=== PATIENT | male | born 1965 | race Caucasian/White ===

== ENCOUNTER 2023-04-18 13:46 | Inpatient (IN) | payer OTHER ==
--- NOTE | 2023-04-18 14:07 | ED ---
Abdominal Pain HPI - General Chief Complaint: Abdominal Pain Stated Complaint: Abd Pain Time Seen by Provider: 04/18/23 14:05 Source: patient, EMS Mode of arrival: EMS Limitations: no limitations - History of Present Illness Initial Comments: Patient is a 57-year-old male presenting to the emergency room via EMS with complaints of abdominal pain that has been ongoing for 2-3 weeks with increased intensity recently. He states that he has chronic diarrhea and has had intermittent bouts of nausea with vomiting with his last episode of vomiting 2 days ago. He does report hemorrhoids that cause bright red blood at times but denies any gross blood in his stool or melenic stool. He denies any blood in his emesis. As stated above he has not had any emesis from 2 days. He also reports changes in position suddenly causes him to become dizzy and he has had a few falls over the last few weeks causing some abrasions to his upper arms. He denies any falls in the last several days. He does admit to previous daily drinking but reports that he no longer drinks daily. He states his last drink was yesterday. He denies any changes in positions or while he is lying in his current position. He reports his only significant past medical history is for GI bleed. - Related Data Allergies Allergy/AdvReac Type Severity Reaction Status Date / Time No Known Allergies Allergy Verified 04/18/23 15:15 Review of Systems ROS Statement: Those systems with pertinent positive or pertinent negative responses have been documented in the HPI. ROS Other: All systems not noted in ROS Statement are negative. Past Medical History Past Medical History: GI Bleed History of Any Multi-Drug Resistant Organisms: None Reported Past Surgical History: No Surgical Hx Reported Past Psychological History: No Psychological Hx Reported Smoking Status: Current every day smoker Past Alcohol Use History: Daily Past Drug Use History: None Reported General Exam Limitations: no limitations General appearance: alert, in no apparent distress Head exam: Present: atraumatic, normocephalic, normal inspection Eye exam: Present: normal appearance, PERRL, EOMI. Absent: scleral icterus, conjunctival injection, nystagmus, periorbital swelling ENT exam: Present: normal exam, mucous membranes moist Neck exam: Present: normal inspection, full ROM. Absent: tenderness Respiratory exam: Present: normal lung sounds bilaterally. Absent: respiratory distress, wheezes, rales, rhonchi, stridor Cardiovascular Exam: Present: regular rate, normal rhythm, normal heart sounds. Absent: systolic murmur, diastolic murmur, rubs, gallop, clicks GI/Abdominal exam: Present: soft, distended, tenderness (Generalized), normal bowel sounds. Absent: guarding, rebound, rigid Rectal exam: Present: deferred Extremities exam: Present: normal inspection. Absent: tenderness, pedal edema, joint swelling Back exam: Present: normal inspection, full ROM Neurological exam: Present: alert, oriented X3, CN II-XII intact Psychiatric exam: Present: flat affect Skin exam: Present: warm, dry, abrasion (Healing bilateral upper extremities.), other (Scattered ecchymosis bilateral upper extremities). Absent: rash Course Vital Signs 04/18/23 04/18/23 13:48 15:53 Temperature 98.1 F Pulse Rate 86 78 Respiratory 18 18 Rate Blood Pressure 95/65 89/58 O2 Sat by Pulse 98 96 Oximetry Medical Decision Making - Medical Decision Making Was pt. sent in by a medical professional or institution (Dr. PA, INVESTMENT EXECUTIVE, urgent care, hospital, or half-way...) When possible be specific @ -No Did you speak to anyone other than the patient for history (EMS, parent, family, police, friend...)? What history was obtained from this source @ -No Did you review nursing and triage notes (agree or disagree)? Why? @ -I reviewed and agree with nursing and triage notes Were old charts reviewed (outside hosp., previous admission, EMS record, old EKG, old radiological studies, urgent care reports/EKG's, half-way records)? Report findings @ -No old charts were reviewed Differential Diagnosis (chest pain, altered mental status, abdominal pain women, abdominal pain men, vaginal bleeding, weakness, fever, dyspnea, syncope, headache, dizziness, GI bleed, back pain, seizure, CVA, palpatations, mental health, musculoskeletal)? @ -Differential Abdominal Pain Men: Appendicitis, cholecystitis, diverticulosis, ischemic bowel, pancreatitis, hepatitis, UTI, gastroenteritis, AAA, incarcerated hernia, bowel obstruction, constipation, inflammatory bowel, hepatitis, peptic ulcer disease, splenic infarction, perforated viscus, testicular torsion, this is not meant to be an all-inclusive list Differential Dizziness: Benign paroxysmal positional Vertigo, Menieres disease, otitis media, acoustic neuroma, vertebrobasilar insufficiency, cerebellar stroke, encephalitis, hypovolemic, arrhythmia, coronary artery syndrome, anemia, this is not meant to be an all-inclusive list EKG interpreted by me (3pts min.). @ -Sinus rhythm, ventricular rate 82 bpm, CO interval 173 ms, QRS duration 97 ms, QT/QTC 388/427 ms, PRT axes 55, 32, 36 X-rays interpreted by me (1pt min.). @ -None done CT interpreted by me (1pt min.). @ -None done U/S (1pt. min.). @ -Ultrasound of the abdomen complete not interpreted by me. Report per radiologist mild to moderate ascites, gallbladder wall thickening without evidence of cholecystitis, borderline hepatomegaly. What testing was considered but not performed or refused? (CT, X-rays, U/S, labs)? Why? @ -None What meds were considered but not given or refused? Why? @ -None Did you discuss the management of the patient with other professionals (pr ofessionals i.e. , PA, INVESTMENT EXECUTIVE, lab, RT, psych nurse, criminal justice social worker, machine tester, teacher, airframe technical officer, shelter case manager)? Give summary @ -No Was smoking cessation discussed for >3mins.? @ -No Was critical care preformed (if so, how long)? @ -No Were there social determinants of health that impacted care today? How? (Homelessness, low income, unemployed, alcoholism, drug addiction, transport ation, low edu. Level, literacy, decrease access to med. care, group home, rehab)? @ -No Was there de-escalation of care discussed even if they declined (Discuss DNR or withdrawal of care, Hospice)? DNR status @ -No What co-morbidities impacted this encounter? (DM, HTN, Smoking, COPD, CAD, Cancer, CVA, ARF, Chemo, Hep., AIDS, mental health diagnosis, sleep apnea, morbid obesity)? @ -EtOH history Was patient admitted / discharged? Hospital course, mention meds given and route, prescriptions, significant lab abnormalities, going to OR and other pertinent info. @ -57-year-old male presenting to the emergency room with complaints of abdominal pain ongoing for 2-3 weeks with chronic diarrhea and intermittent episodes of nausea vomiting. No nausea vomiting 48 hours. History of EtOH noted. Also reports dizziness with sudden position changes and several falls over the last several weeks none with the last 48 hours. Healing abrasions to upper extremities from previous falls noted. Will start workup for abdominal pain with ultrasound of the abdomen, CBC, CMP, amylase, lipase and coags. Stool for occult blood due to referred due to excoriated perineal and rectal area with inflamed external hemorrhoids.Will additionally order ammonia level, magnesium and serum alcohol level in the setting of EtOH history. Will obtain EKG to further evaluate dizziness. Will give 1 L IV fluid bolus along with morphine and Zofran. Morphine held due to hypotension; IV fluid bolus infusing, and Zofran given with improvement in nausea. EKG shows sinus rhythm. Laboratory showed moderate anemia with unknown baseline at 8.6,leukocytosis, platelets low at 136 consistent with alcohol abuse. Coags normal. Electrolyte derangement noted. Sodium level low at 126, potassium level low at 2.9 chloride low 96, carbon dioxide low at 19 calcium low at 7.1 with normal corrected calcium for low albumin of 2.3, amylase and lipase normal, troponin negative, ammonia level normal, AST elevated 103 ALT normal, total bilirubin normal, magnesium normal. Will give second IV fluid danica us along with 20 mEq of potassium IV and 40 mEq orally. Bicarbonate likely low secondary to recurrent diarrhea will hold bicarb replacement at this time. Serum alcohol level elevated at 182 despite patient's reports of no alcohol intake in the last 24 hours. Ultrasound of the abdomen reveals mild to moderate abdominal ascites no indication for paracentesis or consult to gastrointestinal services at this time. Advised patient recommend admission for control of abdominal pain, correction of electrolyte abnormality and monitoring of abdominal swelling. Further discussed alcohol level with patient and advised concern for hepatic failure secondary to alcohol abuse and advised abstinence from alcohol. Patient agreeable to admission and further monitoring. Spoke with Dr. Oconnor on [facility] who is accepting of admission and denies any further orders at this time. Will admit patient in stable condition to observation unit under [facility] for further evaluation and treatment of hypokalemia and abdominal ascites. Undiagnosed new problem with uncertain prognosis? @ -No Drug Therapy requiring intensive monitoring for toxicity (Heparin, Nitro, Insulin, Cardizem)? @ -No Were any procedures done? @ -No Diagnosis/symptom? @ -Abdominal ascites Acute, or Chronic, or Acute on Chronic? @ -Acute Uncomplicated (without systemic symptoms) or Complicated (systemic symptoms)? @ -Uncomplicated Side effects of treatment? @ -No Exacerbation, Progression, or Severe Exacerbation? @ -No Poses a threat to life or bodily function? How? (Chest pain, [place], [place], pneumonia, PE, COPD, DKA, ARF, appy, cholecystitis, CVA, Diverticulitis, Homicidal, Suicidal, threat to staff... and all critical care pts) @ -No Diagnosis/symptom? @ -Hypokalemia Chronic, or Acute on Chronic? @ -Acute Uncomplicated (without systemic symptoms) or Complicated (systemic symptoms)? @ -Complicated Side effects of treatment? @ -[none] Excerbtion, Progression, or Severe Exacerbation] @ -[no Pose athreat to life or bodily function? @ -yes, at risk for further electrolyte abnormalities and cardiac dysrhythmias including but not limited to cardiac arrest. Case discussed with Dr. Rodriguez. - Lab Data Result diagrams: 04/18/23 14:32 04/18/23 14:32 Lab Results 04/18/23 04/18/23 04/18/23 Range/Units 14:32 14:32 14:32 WBC 5.7 (3.8-10.6) k/uL RBC 2.40 L (4.30-5.90) m/uL Hgb 8.6 L (13.0-17.5) gm/dL Hct 25.5 L (39.0-53.0) % MCV 106.2 H (80.0-100.0) fL MCH 35.8 H (25.0-35.0) pg MCHC 33.7 (31.0-37.0) g/dL RDW 15.0 (11.5-15.5) % Plt Count 136 L (150-450) k/uL MPV 10.3 Neutrophils % 64 % Lymphocytes % 27 % Monocytes % 6 % Eosinophils % 1 % Basophils % 0 % Neutrophils # 3.7 (1.3-7.7) k/uL Lymphocytes # 1.5 (1.0-4.8) k/uL Monocytes # 0.4 (0-1.0) k/uL Eosinophils # 0.1 (0-0.7) k/uL Basophils # 0.0 (0-0.2) k/uL Macrocytosis Moderate PT (9.0-12.0) sec INR (<1.2) APTT (22.0-30.0) sec Sodium 126 L (137-145) mmol/L Potassium 2.9 L (3.5-5.1) mmol/L Chloride 96 L (98-107) mmol/L Carbon Dioxide 19 L (22-30) mmol/L Anion Gap 11 mmol/L BUN <2 L (9-20) mg/dL Creatinine 0.49 L (0.66-1.25) mg/dL Est GFR (CKD-EPI)AfAm >90 (>60 ml/min/1.73 sqM) Est GFR (CKD-EPI)NonAf >90 (>60 ml/min/1.73 sqM) Glucose 74 (74-99) mg/dL Calcium 7.1 L (8.4-10.2) mg/dL Magnesium 1.7 (1.6-2.3) mg/dL Total Bilirubin 0.9 (0.2-1.3) mg/dL AST 103 H (17-59) U/L ALT 18 (4-49) U/L Alkaline Phosphatase 227 H (38-126) U/L Ammonia 18 (<30) umol/L Troponin I (0.000-0.034) ng/mL Total Protein 5.1 L (6.3-8.2) g/dL Albumin 2.3 L (3.5-5.0) g/dL Amylase 43 (30-110) U/L Lipase 119 (23-300) U/L Serum Alcohol 182 mg/dL 04/18/23 04/18/23 Range/Units 14:32 14:32 WBC (3.8-10.6) k/uL RBC (4.30-5.90) m/uL Hgb (13.0-17.5) gm/dL Hct (39.0-53.0) % MCV (80.0-100.0) fL MCH (25.0-35.0) pg MCHC (31.0-37.0) g/dL RDW (11.5-15.5) % Plt Count (150-450) k/uL MPV Neutrophils % % Lymphocytes % % Monocytes % % Eosinophils % % Basophils % % Neutrophils # (1.3-7.7) k/uL Lymphocytes # (1.0-4.8) k/uL Monocytes # (0-1.0) k/uL Eosinophils # (0-0.7) k/uL Basophils # (0-0.2) k/uL Macrocytosis PT 11.8 (9.0-12.0) sec INR 1.1 (<1.2) APTT 23.5 (22.0-30.0) sec Sodium (137-145) mmol/L Potassium (3.5-5.1) mmol/L Chloride (98-107) mmol/L Carbon Dioxide (22-30) mmol/L Anion Gap mmol/L BUN (9-20) mg/dL Creatinine (0.66-1.25) mg/dL Est GFR (CKD-EPI)AfAm (>60 ml/min/1.73 sqM) Est GFR (CKD-EPI)NonAf (>60 ml/min/1.73 sqM) Glucose (74-99) mg/dL Calcium (8.4-10.2) mg/dL Magnesium (1.6-2.3) mg/dL Total Bilirubin (0.2-1.3) mg/dL AST (17-59) U/L ALT (4-49) U/L Alkaline Phosphatase (38-126) U/L Ammonia (<30) umol/L Troponin I <0.012 (0.000-0.034) ng/mL Total Protein (6.3-8.2) g/dL Albumin (3.5-5.0) g/dL Amylase (30-110) U/L Lipase (23-300) U/L Serum Alcohol mg/dL - Radiology Data Radiology results: report reviewed, image reviewed Disposition Clinical Impression: Hypokalemia, Abdominal ascites Disposition: ADMITTED IP TO THIS [facility] Condition: Stable Referrals: None,Stated [Primary Care Provider] - 1-2 days Time of Disposition: 16:50
[2023-04-18] MEDS ORDERED: MORPHINE SULFATE 4 MG/ML SYRINGE IVP STA (14:14)
[2023-04-18] MEDS ORDERED: ONDANSETRON 4 MG/2 ML VIAL IVP STA (14:14)
[2023-04-18] MEDS ORDERED: SODIUM CHLORIDE 0.9% 1,000 ML IV STA ×2 (14:14→15:45)
[2023-04-18 14:42] LABS: Basophils % (A) 0 %; Eosinophils # (A) 0.1 k/uL (0-0.7); Eosinophils % (A) 1 %; HCT 25.5 % (39.0-53.0); HGB 8.6 gm/dL (13.0-17.5); Lymphocytes # (A) 1.5 k/uL (1.0-4.8); Lymphocytes % (A) 27 %; MCH 35.8 pg (25.0-35.0); MCHC 33.7 g/dL (31.0-37.0); MCV 106.2 fL (80.0-100.0); Macrocytosis Moderate; Mean Platelet Volume 10.3; Monocytes # (A) 0.4 k/uL (0-1.0); Monocytes % (A) 6 %; Neutrophils # (A) 3.7 k/uL (1.3-7.7); Neutrophils % (A) 64 %; Platelet Count 136 k/uL (150-450); WBC 5.7 k/uL (3.8-10.6)
[2023-04-18 14:53] LABS: INR 1.1 (<1.2); Partial Thromboplastin Time 23.5 sec (22.0-30.0); Prothrombin Time 11.8 sec (9.0-12.0)
[2023-04-18 15:20] LABS: ALT 18 U/L (4-49); AST 103 U/L (17-59); African American GFR (CKD) >90 (>60 ml/min/1.73 sqM); Albumin 2.3 g/dL (3.5-5.0); Alkaline Phosphatase 227 U/L (38-126); Amylase 43 U/L (30-110); Anion Gap 11 mmol/L; Blood Urea Nitrogen <2 mg/dL (9-20); Calcium 7.1 mg/dL (8.4-10.2); Carbon Dioxide 19 mmol/L (22-30); Chloride 96 mmol/L (98-107); Glucose 74 mg/dL (74-99); Lipase 119 U/L (23-300); Magnesium 1.7 mg/dL (1.6-2.3); Non-African American GFR(CKD) >90 (>60 ml/min/1.73 sqM); Potassium 2.9 mmol/L (3.5-5.1); Sodium 126 mmol/L (137-145); Total Bilirubin 0.9 mg/dL (0.2-1.3); Total Protein 5.1 g/dL (6.3-8.2)
[2023-04-18 15:35] LABS: Alcohol 182 mg/dL
[2023-04-18] MEDS ORDERED: POTASSIUM CHLORIDE 20 MEQ in WATER FOR INJECTION 1 100ML.BAG IVPB STA (15:45)
[2023-04-18] MEDS ORDERED: POTASSIUM CHLORIDE ER 20 MEQ TAB.ER PO STA (15:45)
--- NOTE | 2023-04-18 16:17 | US ---
EXAMINATION TYPE: US abdomen complete DATE OF EXAM: 04/18/2023 COMPARISON: NONE CLINICAL INDICATION: Male, 57 years old with history of abdominal pain. TECHNIQUE: Multiple sonographic images of the abdomen are obtained. FINDINGS: EXAM MEASUREMENTS: Liver Length: 17.2 cm Gallbladder Wall: 0.45 cm CBD: 0.51 cm Spleen: 9.6 cm Right Kidney: 11.1 x 4.7 x 4.4 cm Left Kidney: 10.3 x 5.6 x 6.2 cm DRUG ABUSE WORKER NOTES: Exam is limited due to overlying bowel gas*. Pancreas: Most of the pancreas is seen and shows no gross abnormality. Suboptimal visualization of t he pancreatic tail due to bowel gas shadowing. Liver: Borderline enlarged. Slight coarsened appearance may be on a technical basis due to underlying ascites. No focal lesion seen. Gallbladder: *There is circumferential wall thickening. No shadowing stones. No hydropic change. Ther e is a small 3 mm echogenic mural based nodule near the fundus of the gallbladder suspected to repres ent a small gallbladder wall polyp. Evidence for sonographic Dhillon's sign: No CBD: Appears wnl Spleen: Appears wnl Right Kidney: Mild pelviectasis. No calyceal dilatation to suggest hydronephrosis. Left Kidney: Mild pelvicaliectasis, possibly early hydronephrosis. Upper IVC: Appears wnl Abd Aorta: Appears wnl. Iliacs were obscured. Ascites seen tthroughout the four quadrants of the abdomen and within the midline epigastric area. IMPRESSION: 1. Mild to moderate abdominal ascites throughout. 2. Nonspecific gallbladder wall thickening. Gallbladder wall thickening can be seen in the setting of third spacing and fluid overload states. No shadowing stones, hydropic change, or positive Dhillon si gn to clearly indicate acute cholecystitis at this time. 3. No biliary ductal dilatation. 4. Mild left-sided pelvicaliectasis, possible early hydronephrosis. Short interval follow-up recommen ded.
[2023-04-18] MEDS ORDERED: NALOXONE 0.4 MG/ML 1 ML VIAL IV PRN (16:50)
--- NOTE | 2023-04-18 19:01 | P.HPIM ---
History of Present Illness H&P Date: 04/18/23 Chief Complaint: Generalized weakness, dizziness 57-year-old man with medical history of alcoholic abuse disorder, nicotine dependence, who does not follow with a doctor presented for generalized weakness, dizziness, increasing belly swelling. Patient says that symptoms been going on for quite some time but in the last few days she's had several falls which prompted concern and therefore presentation to the emergency room. Patient has not seen a doctor in many years, does not take any medications at home. He says he drinks every other day and has never been told that he has liver cirrhosis. He denies nausea, vomiting, chest pain, palpitations, cough, abdominal pain, constipation, dysuria, dyschezia, numbness/weakness of extremities. He reports dyspnea on exertion, diarrhea, presyncopal episodes. In the emergency room, patient was afebrile, 95/65, heart rate 86, 98% on room air. CBC remarkable for anemia done today 0.6, platelets of 136. Basic metabolic panel shows sodium 126, potassium 2.9, chloride 96, CO2 of 19, no anion gap, BUN is less than 2, creatinine is 0.49. Liver function test showed AST 103, ALT of 18, alkaline phosphatase of 227. Troponin was less than 0.012. Lipase is 119. Alcohol level is 182. INR is 1.1. Abdominal shunt demonstrate mild to moderate abdominal ascites, nonspecific gallbladder wall thickening, mild left-sided pelviectasis with possible early hydronephrosis. Case was discussed emergency room provider decision was made to with the patient for further evaluation metabolic arrangements and ascites. All Systems reviewed and pertinent positives and negatives noted in HPI, all other symptoms are negative Gen: in no apparent distress, resting comfortably in bed Eyes: PERRL, no scleral injection or icterus HENT: normocephalic, atraumatic, good hearing acuity, moist mucous membranes Neck: no tracheal deviation, full range of motion Resp: good air exchange, breathing comfortably with no accessory muscle use, no tactile fremitus CVS: good distal perfusion x 4, no pitting edema GI: soft, NTTP, ND, no hepatosplenomegaly, ascites is present : no suprapubic tenderness, no CVAT, guerrero catheter not present MSK: no clubbing, no cyanosis, no noted contractures of extremities Skin: no noted rashes, petechiae; temperature of skin is appropriate Neuro: moving all extremities without signs of weakness, CN II-XII intact Psych: cooperative, euthymic mood, insight and judgment intact Labs and imaging as above Assessment: Decompensated liver cirrhosis Volume overload secondary to ascites Hypervolemic hyponatremia Alcohol abuse disorder Nicotine dependence Plan: Vital signs reviewed and noted in the HPI Lab work reviewed and noted in the HPI Abdominal shunt reviewed and noted in HPI Case was discussed with the Emergency Room provider and decision was made to admit the patient for hyponatremia, ascites Basic metabolic panel every 6 hours Start by mouth Lasix 40 mg, by mouth spironolactone 25 mg Nicotine patch, 21 mg per 24 hours Monitor on telemetry IR consult for paracentesis Nephrology consult for hyponatremia Patient is full code Past Medical History Past Medical History: GI Bleed History of Any Multi-Drug Resistant Organisms: None Reported Past Surgical History: No Surgical Hx Reported Past Psychological History: No Psychological Hx Reported Smoking Status: Current every day smoker Past Alcohol Use History: Daily Past Drug Use History: None Reported Medications and Allergies Allergies Allergy/AdvReac Type Severity Reaction Status Date / Time No Known Allergies Allergy Verified 04/18/23 15:15 Physical Exam Osteopathic Statement: *. No significant issues noted on an osteopathic structural exam other than those noted in the History and Physical/Consult. Vitals: Vital Signs Temp Pulse Resp BP Pulse Ox 04/18/23 15:53 78 18 89/58 96 04/18/23 13:48 98.1 F 86 18 95/65 98 Intake and Output 04/18/23 04/18/23 04/18/23 06:59 14:59 22:59 Other: Weight 52.163 kg Results CBC & Chem 7: 04/18/23 14:32 04/18/23 14:32 Labs: Abnormal Lab Results - Last 24 Hours (Table) 04/18/23 04/18/23 Range/Units 14:32 14:32 RBC 2.40 L (4.30-5.90) m/uL Hgb 8.6 L (13.0-17.5) gm/dL Hct 25.5 L (39.0-53.0) % MCV 106.2 H (80.0-100.0) fL MCH 35.8 H (25.0-35.0) pg Plt Count 136 L (150-450) k/uL Sodium 126 L (137-145) mmol/L Potassium 2.9 L (3.5-5.1) mmol/L Chloride 96 L (98-107) mmol/L Carbon Dioxide 19 L (22-30) mmol/L BUN <2 L (9-20) mg/dL Creatinine 0.49 L (0.66-1.25) mg/dL Calcium 7.1 L (8.4-10.2) mg/dL AST 103 H (17-59) U/L Alkaline Phosphatase 227 H (38-126) U/L Total Protein 5.1 L (6.3-8.2) g/dL Albumin 2.3 L (3.5-5.0) g/dL
[2023-04-18] MEDS: FUROSEMIDE 40 MG TAB PO SCH ×2 (19:54→20:04)
[2023-04-18] MEDS: NICOTINE 21MG/24HR PATCH TRANSDERM SCH (19:54)
[2023-04-18] MEDS: SPIRONOLACTONE 25 MG TAB PO SCH ×2 (19:54→20:04)
[2023-04-18] MEDS: 0.9% NACL WITH KCL 20 MEQ/L 1,000 ML IV SCH (19:55)
[2023-04-19] MEDS: NICOTINE 21MG/24HR PATCH TRANSDERM SCH (08:32)
[2023-04-19] MEDS: SPIRONOLACTONE 25 MG TAB PO SCH (08:32)
[2023-04-19] MEDS: FUROSEMIDE 40 MG TAB PO SCH (08:32)
[2023-04-19 09:04] LABS: Basophils % (A) 0 %; Eosinophils % (A) 1 %; HCT 31.1 % (39.0-53.0); Hypochromasia Slight; Lymphocytes # (A) 1.3 k/uL (1.0-4.8); Lymphocytes % (A) 23 %; MCH 35.5 pg (25.0-35.0); MCHC 32.1 g/dL (31.0-37.0); MCV 110.7 fL (80.0-100.0); Macrocytosis Marked; Mean Platelet Volume 10.2; Monocytes # (A) 0.2 k/uL (0-1.0); Monocytes % (A) 4 %; Neutrophils # (A) 3.9 k/uL (1.3-7.7); Neutrophils % (A) 69 %; Platelet Count 142 k/uL (150-450); RBC 2.81 m/uL (4.30-5.90); RDW 14.9 % (11.5-15.5); WBC 5.6 k/uL (3.8-10.6)
[2023-04-19 09:20] LABS: African American GFR (CKD) >90 (>60 ml/min/1.73 sqM); Anion Gap 3 mmol/L; Blood Urea Nitrogen <2 mg/dL (9-20); Calcium 7.4 mg/dL (8.4-10.2); Carbon Dioxide 26 mmol/L (22-30); Chloride 103 mmol/L (98-107); Glucose 102 mg/dL (74-99); Magnesium 1.8 mg/dL (1.6-2.3); Non-African American GFR(CKD) >90 (>60 ml/min/1.73 sqM); Sodium 132 mmol/L (137-145)
[2023-04-19 12:36] VITALS: BMI 17.4
--- NOTE | 2023-04-19 13:32 | P.PN ---
Subjective Progress Note Date: 04/19/23 Pt still dizzy upon sitting/standing. Na improving. Gen: in no apparent distress, resting comfortably in bed Eyes: PERRL, no scleral injection or icterus HENT: normocephalic, atraumatic, good hearing acuity, moist mucous membranes Neck: no tracheal deviation, full range of motion Resp: good air exchange, breathing comfortably with no accessory muscle use, no tactile fremitus CVS: good distal perfusion x 4, no pitting edema GI: soft, NTTP, ND, no hepatosplenomegaly, ascites is present : no suprapubic tenderness, no CVAT, guerrero catheter not present MSK: no clubbing, no cyanosis, no noted contractures of extremities Skin: no noted rashes, petechiae; temperature of skin is appropriate Neuro: moving all extremities without signs of weakness, CN II-XII intact Psych: cooperative, euthymic mood, insight and judgment intact Labs and imaging as above Assessment: Decompensated liver cirrhosis Volume overload secondary to ascites Hypervolemic hyponatremia Alcohol abuse disorder Nicotine dependence Plan: Vitals stable Basic metabolic panel every 6 hours - Na improved to 132 Continue by mouth Lasix 40 mg, by mouth spironolactone 25 mg Nicotine patch, 21 mg per 24 hours Monitor on telemetry IR consult for paracentesis Nephrology consult for hyponatremia - pending Patient is full code Objective - Vital Signs Vital signs: Vital Signs Temp 98.5 F 04/19/23 12:00 Pulse 83 04/19/23 12:00 Resp 16 04/19/23 12:00 BP 90/60 04/19/23 12:00 Pulse Ox 97 04/19/23 13:00 FiO2 Intake & Output 04/18/23 04/19/23 04/19/23 18:59 06:59 18:59 Intake Total 650 300 Balance 650 300 Weight 52.163 kg 52.163 kg 52.163 kg Intake: Oral 650 300 Other: Voiding Method Toilet Toilet # Voids 1 1 - Labs CBC & Chem 7: 04/19/23 08:44 04/19/23 08:44 Labs: Abnormal Lab Results - Last 24 Hours (Table) 04/18/23 04/18/23 04/19/23 Range/Units 14:32 14:32 08:44 RBC 2.40 L 2.81 L (4.30-5.90) m/uL Hgb 8.6 L 10.0 L (13.0-17.5) gm/dL Hct 25.5 L 31.1 L (39.0-53.0) % MCV 106.2 H 110.7 H (80.0-100.0) fL MCH 35.8 H 35.5 H (25.0-35.0) pg Plt Count 136 L 142 L (150-450) k/uL Macrocytosis Marked A Sodium 126 L (137-145) mmol/L Potassium 2.9 L (3.5-5.1) mmol/L Chloride 96 L (98-107) mmol/L Carbon Dioxide 19 L (22-30) mmol/L BUN <2 L (9-20) mg/dL Creatinine 0.49 L (0.66-1.25) mg/dL Glucose (74-99) mg/dL Calcium 7.1 L (8.4-10.2) mg/dL AST 103 H (17-59) U/L Alkaline Phosphatase 227 H (38-126) U/L Total Protein 5.1 L (6.3-8.2) g/dL Albumin 2.3 L (3.5-5.0) g/dL 04/19/23 Range/Units 08:44 RBC (4.30-5.90) m/uL Hgb (13.0-17.5) gm/dL Hct (39.0-53.0) % MCV (80.0-100.0) fL MCH (25.0-35.0) pg Plt Count (150-450) k/uL Macrocytosis Sodium 132 L (137-145) mmol/L Potassium (3.5-5.1) mmol/L Chloride (98-107) mmol/L Carbon Dioxide (22-30) mmol/L BUN <2 L (9-20) mg/dL Creatinine 0.44 L (0.66-1.25) mg/dL Glucose 102 H (74-99) mg/dL Calcium 7.4 L (8.4-10.2) mg/dL AST (17-59) U/L Alkaline Phosphatase (38-126) U/L Total Protein (6.3-8.2) g/dL Albumin (3.5-5.0) g/dL
[2023-04-19 15:26] LABS: African American GFR (CKD) >90 (>60 ml/min/1.73 sqM); Anion Gap 5 mmol/L; Blood Urea Nitrogen <2 mg/dL (9-20); Calcium 7.4 mg/dL (8.4-10.2); Carbon Dioxide 25 mmol/L (22-30); Chloride 101 mmol/L (98-107); Glucose 104 mg/dL (74-99); Non-African American GFR(CKD) >90 (>60 ml/min/1.73 sqM); Potassium 4.2 mmol/L (3.5-5.1); Sodium 131 mmol/L (137-145)
--- NOTE | 2023-04-19 15:31 | P.NPCON ---
History of Present Illness - Reason for Consult Consult date: 04/19/23 hyponatremia - Chief Complaint Weakness - History of Present Illness Coming to the hospital with the above complaints. Upper lobe weeks of diarrhea, with dizziness lightheadedness. Workup in the hospital sodium of 126 improved to 132 with IV fluids. He is also has nicotine dependence. No medical problems and does not take any medications at home. Feels better. Review of Systems Constitutional: Reports as per HPI Past Medical History Past Medical History: GI Bleed History of Any Multi-Drug Resistant Organisms: None Reported Past Surgical History: No Surgical Hx Reported Past Psychological History: No Psychological Hx Reported Smoking Status: Current every day smoker Past Alcohol Use History: Daily Past Drug Use History: None Reported Medications and Allergies Home Medications Medication Instructions Recorded Confirmed Type No Known Home Medications 04/18/23 04/18/23 History Allergies Allergy/AdvReac Type Severity Reaction Status Date / Time No Known Allergies Allergy Verified 04/18/23 19:27 Physical Exam Vitals: Vital Signs Temp Pulse Pulse Resp BP BP Pulse Ox 04/19/23 13:00 97 04/19/23 12:00 98.5 F 83 16 90/60 96 04/19/23 08:36 98.5 F 84 18 91/60 97 04/19/23 04:00 96 16 87/58 99 04/18/23 22:00 97.9 F 63 16 101/68 94 L 04/18/23 21:00 76 16 97/63 98 04/18/23 15:53 78 18 89/58 96 Intake and Output 04/19/23 04/19/23 04/19/23 06:59 14:59 22:59 Intake Total 300 Balance 300 Intake: Oral 300 Other: Voiding Method Toilet Toilet # Voids 1 1 1 Weight 52.163 kg No acute distress S1-S2 heard Lungs clear Abdomen soft No edema Results - Lab Results Most recent lab results Calcium 7.4 mg/dL (8.4-10.2) L 04/19/23 08:44 Magnesium 1.8 mg/dL (1.6-2.3) 04/19/23 08:44 04/19/23 08:44 04/19/23 08:44 Assessment and Plan Assessment: #1 hypotonic hypervolemic hyponatremia #2 continue current independence #3 hypokalemia #4 chronic liver disease with ascites. Plan: #1 continue with IV fluids. Sodium improving. #2 stop Lasix and Aldactone. #3 labs in the morning #4 consider adding Aldactone by tomorrow.
[2023-04-19] MEDS: 0.9% NACL WITH KCL 20 MEQ/L 1,000 ML IV SCH (16:37)
[2023-04-19] MEDS: SODIUM CHLORIDE 0.9% 1,000 ML IV SCH (16:38)
[2023-04-19 21:15] LABS: African American GFR (CKD) >90 (>60 ml/min/1.73 sqM); Anion Gap 6 mmol/L; Blood Urea Nitrogen 2 mg/dL (9-20); Calcium 7.4 mg/dL (8.4-10.2); Carbon Dioxide 25 mmol/L (22-30); Chloride 101 mmol/L (98-107); Glucose 84 mg/dL (74-99); Non-African American GFR(CKD) >90 (>60 ml/min/1.73 sqM); Potassium 3.9 mmol/L (3.5-5.1); Sodium 132 mmol/L (137-145)
[2023-04-20 04:58] LABS: African American GFR (CKD) >90 (>60 ml/min/1.73 sqM); Anion Gap 3 mmol/L; Blood Urea Nitrogen 2 mg/dL (9-20); Calcium 7.2 mg/dL (8.4-10.2); Carbon Dioxide 25 mmol/L (22-30); Chloride 102 mmol/L (98-107); Glucose 90 mg/dL (74-99); Non-African American GFR(CKD) >90 (>60 ml/min/1.73 sqM); Potassium 3.6 mmol/L (3.5-5.1); Sodium 130 mmol/L (137-145)
[2023-04-20] MEDS: SODIUM CHLORIDE 0.9% 1,000 ML IV SCH (06:43)
[2023-04-20 08:45] LABS: African American GFR (CKD) >90 (>60 ml/min/1.73 sqM); Anion Gap 1 mmol/L; Blood Urea Nitrogen <2 mg/dL (9-20); Calcium 7.1 mg/dL (8.4-10.2); Carbon Dioxide 28 mmol/L (22-30); Chloride 103 mmol/L (98-107); Glucose 82 mg/dL (74-99); Non-African American GFR(CKD) >90 (>60 ml/min/1.73 sqM); Potassium 3.6 mmol/L (3.5-5.1); Sodium 132 mmol/L (137-145)
[2023-04-20] MEDS: NICOTINE 21MG/24HR PATCH TRANSDERM SCH (08:49)
[2023-04-20] MEDS ORDERED: NICOTINE GUM (POLACRILEX) 2 MG GUM BUCCAL PRN (11:02)
[2023-04-20] MEDS ORDERED: CALCIUM CARBONATE 500 MG CHEWABLE PO PRN (11:04)
[2023-04-20] MEDS: IOPAMIDOL CONTRAST (ORAL USE) VIAL PO PRN ×2 (11:17→12:13)
[2023-04-20] MEDS ORDERED: ONDANSETRON 4 MG/2 ML VIAL IVP PRN (11:54)
--- NOTE | 2023-04-20 11:54 | P.PN ---
Subjective Progress Note Date: 04/20/23 Pt still dizzy upon sitting/standing, but improving. Na improving. Had nausea, and abd pain today, worse than admission. Gen: in no apparent distress, resting comfortably in bed Eyes: PERRL, no scleral injection or icterus HENT: normocephalic, atraumatic, good hearing acuity, moist mucous membranes Neck: no tracheal deviation, full range of motion Resp: good air exchange, breathing comfortably with no accessory muscle use, no tactile fremitus CVS: good distal perfusion x 4, no pitting edema GI: soft, TTP in left lower quad, mildly distended, no hepatosplenomegaly, ascites is present : no suprapubic tenderness, no CVAT, guerrero catheter not present MSK: no clubbing, no cyanosis, no noted contractures of extremities Skin: no noted rashes, petechiae; temperature of skin is appropriate Neuro: moving all extremities without signs of weakness, CN II-XII intact Psych: cooperative, euthymic mood, insight and judgment intact Labs and imaging as above Assessment: Decompensated liver cirrhosis Volume overload secondary to ascites Hypervolemic hyponatremia Alcohol abuse disorder Nicotine dependence Plan: Vitals stable Basic metabolic panel every 6 hours - Na stable 132 Holding by mouth Lasix 40 mg, by mouth spironolactone 25 mg Started IVF yesterday per nephrology Nicotine patch, 21 mg per 24 hours, added nicotine gum 2mg q2h PRN Monitor on telemetry IR consult for paracentesis Nephrology consult for hyponatremia apprecaited CT abd/pelvis for abd pain Added zofran 4mg IV q6h PRN Patient is full code Objective - Vital Signs Vital signs: Vital Signs Temp 98 F 04/20/23 08:00 Pulse 79 04/20/23 08:00 Resp 20 04/20/23 08:00 BP 83/62 04/20/23 08:00 Pulse Ox 95 04/20/23 09:32 FiO2 Intake & Output 04/19/23 04/20/23 04/20/23 18:59 06:59 18:59 Intake Total 300 540 120 Balance 300 540 120 Weight 52.163 kg Intake: Oral 300 540 120 Other: Voiding Method Toilet Toilet # Voids 1 1 # Bowel Movements 1 - Labs CBC & Chem 7: 04/19/23 08:44 04/20/23 06:35 Labs: Abnormal Lab Results - Last 24 Hours (Table) 04/19/23 04/19/23 04/20/23 Range/Units 14:53 20:41 04:25 Sodium 131 L 132 L 130 L (137-145) mmol/L BUN <2 L 2 L 2 L (9-20) mg/dL Creatinine 0.51 L 0.51 L 0.47 L (0.66-1.25) mg/dL Glucose 104 H (74-99) mg/dL Calcium 7.4 L 7.4 L 7.2 L (8.4-10.2) mg/dL 04/20/23 Range/Units 06:35 Sodium 132 L (137-145) mmol/L BUN <2 L (9-20) mg/dL Creatinine 0.45 L (0.66-1.25) mg/dL Glucose (74-99) mg/dL Calcium 7.1 L (8.4-10.2) mg/dL
--- NOTE | 2023-04-20 13:22 | CT ---
EXAMINATION TYPE: CT abdomen pelvis w con CT DLP: 817.8 mGycm, Automated exposure control for dose reduction was used. DATE OF EXAM: 04/20/2023 1:15 PM COMPARISON: Ultrasound 04/10/2023. CLINICAL INDICATION:Male, 57 years old with history of abd pain, worsening, with nausea; abd pain, wo rsening, with nausea TECHNIQUE: Axial CT of the abdomen and pelvis. Sagittal and coronal reformats were created on a makemoji workstation. Contrast used:100 mL of Isovue 300 with IV Contrast, (none if empty) Oral contrast used: with Oral Contrast (none if empty) FINDINGS: LOWER CHEST: Unremarkable ABDOMEN LIVER: Correlate lobe hypertrophy changes with subtle nodularity to liver border. GALLBLADDER AND BILE DUCTS: Nondistended with hyperemic mucosa. Gallbladder wall thickening is better appreciated on ultrasound. PANCREAS: Unremarkable. SPLEEN: Unremarkable. ADRENAL GLANDS: Unremarkable. KIDNEYS AND URETERS: No evidence of hydronephrosis or renal calculus. The ureters are unremarkable. PELVIS BLADDER: Unremarkable REPRODUCTIVE: Unremarkable. ABDOMEN & PELVIS STOMACH AND BOWEL: No evidence of bowel obstruction. Mild wall thickening of the ascending colon and cecum. Oral contrast extends into the colon. PERITONEUM/RETROPERITONEUM: No evidence of pneumoperitoneum. Moderate to large abdominal ascites.. VASCULATURE: No evidence of aortic aneurysm. MUSCULOSKELETAL: No acute osseous abnormalities LYMPH NODES: No gross evidence for lymphadenopathy. SOFT TISSUE/ABDOMINAL WALL: Unremarkable IMPRESSION: 1. Findings suspicious for Hepatic cirrhosis with a nodular contour to the liver, trace bilateral pl eural effusions, moderate to large abdominal ascites and hepatic colopathy. No additional evidence fo r acute process. 2. Gallbladder wall thickening on ultrasound 04/10/2023 likely secondary to #1.
--- NOTE | 2023-04-20 14:59 | P.PN ---
Subjective Progress Note Date: 04/20/23 Follow-up for hyponatremia. Objective - Vital Signs Vital signs: Vital Signs Temp 97.8 F 04/20/23 11:57 Pulse 81 04/20/23 11:57 Resp 20 04/20/23 11:57 BP 86/63 04/20/23 11:57 Pulse Ox 100 04/20/23 11:57 FiO2 Intake & Output 04/19/23 04/20/23 04/20/23 18:59 06:59 18:59 Intake Total 300 540 120 Balance 300 540 120 Weight 52.163 kg Intake: Oral 300 540 120 Other: Voiding Method Toilet Toilet # Voids 1 1 1 # Bowel Movements 1 - Exam No acute distress S1-S2 heard Lungs clear Abdomen distended No edema - Labs CBC & Chem 7: 04/19/23 08:44 04/20/23 06:35 Labs: Abnormal Lab Results - Last 24 Hours (Table) 04/19/23 04/19/23 04/20/23 Range/Units 14:53 20:41 04:25 Sodium 131 L 132 L 130 L (137-145) mmol/L BUN <2 L 2 L 2 L (9-20) mg/dL Creatinine 0.51 L 0.51 L 0.47 L (0.66-1.25) mg/dL Glucose 104 H (74-99) mg/dL Calcium 7.4 L 7.4 L 7.2 L (8.4-10.2) mg/dL 04/20/23 Range/Units 06:35 Sodium 132 L (137-145) mmol/L BUN <2 L (9-20) mg/dL Creatinine 0.45 L (0.66-1.25) mg/dL Glucose (74-99) mg/dL Calcium 7.1 L (8.4-10.2) mg/dL Assessment and Plan Assessment: #1 hypotonic hypervolemic hyponatremia secondary to chronic liver disease #2 liver cirrhosis with ascites #3 hypokalemia #4 hypotension Plan: #1 stop IV fluids today. Sodium improving. #2 stop Lasix and Aldactone study. #3 midodrine for hemodynamic support #4 consider adding 12.5 mg Aldactone at bedtime by tomorrow if hemodynamics better.
[2023-04-20 16:43] LABS: African American GFR (CKD) >90 (>60 ml/min/1.73 sqM); Anion Gap 3 mmol/L; Blood Urea Nitrogen 3 mg/dL (9-20); Calcium 7.6 mg/dL (8.4-10.2); Carbon Dioxide 27 mmol/L (22-30); Chloride 100 mmol/L (98-107); Glucose 87 mg/dL (74-99); Non-African American GFR(CKD) >90 (>60 ml/min/1.73 sqM); Potassium 4.1 mmol/L (3.5-5.1); Sodium 130 mmol/L (137-145)
[2023-04-20] MEDS: MIDODRINE 5 MG TAB PO SCH (16:58)
[2023-04-21] MEDS: MIDODRINE 5 MG TAB PO SCH ×3 (06:21→16:48)
[2023-04-21] MEDS: NICOTINE 21MG/24HR PATCH TRANSDERM SCH (09:11)
--- NOTE | 2023-04-21 12:59 | P.PN ---
Subjective Progress Note Date: 04/21/23 Pt still dizzy upon sitting/standing, but improving. Na improving. Had nausea, and abd pain today, worse than admission. Gen: in no apparent distress, resting comfortably in bed Eyes: PERRL, no scleral injection or icterus HENT: normocephalic, atraumatic, good hearing acuity, moist mucous membranes Neck: no tracheal deviation, full range of motion Resp: good air exchange, breathing comfortably with no accessory muscle use, no tactile fremitus CVS: good distal perfusion x 4, no pitting edema GI: soft, TTP in left lower quad, mildly distended, no hepatosplenomegaly, ascites is present : no suprapubic tenderness, no CVAT, guerrero catheter not present MSK: no clubbing, no cyanosis, no noted contractures of extremities Skin: no noted rashes, petechiae; temperature of skin is appropriate Neuro: moving all extremities without signs of weakness, CN II-XII intact Psych: cooperative, euthymic mood, insight and judgment intact Hospital Course: 57-year-old man with medical history of alcoholic abuse disorder, nicotine dependence, who does not follow with a doctor presented for generalized weaknes s, dizziness, increasing belly swelling. In the emergency room, patient was afebrile, 95/65, heart rate 86, 98% on room air. CBC remarkable for anemia done today 0.6, platelets of 136. Basic metabolic panel shows sodium 126, potassium 2.9, chloride 96, CO2 of 19, no anion gap, BUN is less than 2, creatinine is 0.49. Liver function test showed AST 103, ALT of 18, alkaline phosphatase of 227. Troponin was less than 0.012. Lipase is 119. Alcohol level is 182. INR is 1.1. Abdominal shunt demonstrate mild to moderate abdominal ascites, nonspecific gallbladder wall thickening, mild left-sided pelviectasis with possible early hydronephrosis. Case was discussed emergency room provider oracio haile was made to with the patient for further evaluation metabolic arrangements and ascites. Patient was initially placed on Lasix, spironolactone, however, nephrology favored IV fluids. With IV fluids, patient's dizziness did improve, sodium did improve to 130. He was scheduled for a paracentesis on 04/21. Assessment: Decompensated liver cirrhosis Ascites Hyponatremia, hypovolemic per nephrology Alcohol abuse disorder Nicotine dependence Plan: Vitals stable Basic metabolic panel every 8 hours - Na today's pending Holding by mouth Lasix 40 mg, by mouth spironolactone 25 mg per nephrology Started IVF per nephrology Nicotine patch, 21 mg per 24 hours, added nicotine gum 2mg q2h PRN Monitor on telemetry IR consult for paracentesis is pending today Nephrology consult for hyponatremia apprecaited CT abd/pelvis for abd pain showed cirrhotic liver, ascites, no acute process Added zofran 4mg IV q6h PRN Patient is full code On discharge, patient will need referral to a new primary care physician in the area as well as GI physician for liver cirrhosis. He was counseled extensively on complete cessation of alcohol and notified of his cirrhotic status. Objective - Vital Signs Vital signs: Vital Signs Temp 98 F 04/21/23 08:00 Pulse 79 04/21/23 11:57 Resp 16 04/21/23 11:57 BP 87/62 04/21/23 11:57 Pulse Ox 95 04/21/23 11:57 FiO2 Intake & Output 04/20/23 04/21/23 04/21/23 18:59 06:59 18:59 Intake Total 840 120 Balance 840 120 Intake: Intake, IV Titration 600 Amount Sodium Chloride 0.9% 1, 600 000 ml @ 75 mls/hr IV . [id number] [facility] Rx#:[id number] Oral 240 120 Other: Voiding Method Toilet # Voids 1 1 - Labs CBC & Chem 7: 04/19/23 08:44 04/20/23 15:40 Labs: Abnormal Lab Results - Last 24 Hours (Table) 04/20/23 Range/Units 15:40 Sodium 130 L (137-145) mmol/L BUN 3 L (9-20) mg/dL Creatinine 0.46 L (0.66-1.25) mg/dL Calcium 7.6 L (8.4-10.2) mg/dL
--- NOTE | 2023-04-21 13:06 | P.PN ---
Subjective Patient is seen for follow-up for hyponatremia. Sodium has been staying at 132 to 130 No complaints. Saline was discontinued yesterday. Patient is tolerating oral intake. Objective - Vital Signs Vital signs: Vital Signs Temp 98 F 04/21/23 08:00 Pulse 79 04/21/23 11:57 Resp 16 04/21/23 11:57 BP 87/62 04/21/23 11:57 Pulse Ox 95 04/21/23 11:57 FiO2 Intake & Output 04/20/23 04/21/23 04/21/23 18:59 06:59 18:59 Intake Total 840 120 Balance 840 120 Intake: Intake, IV Titration 600 Amount Sodium Chloride 0.9% 1, 600 000 ml @ 75 mls/hr IV . [id number] [facility] Rx#:[id number] Oral 240 120 Other: Voiding Method Toilet # Voids 1 1 - Exam Awake, comfortable, no acute distress Examination of the heart S1 and S2 Examination lungs decreased breath sounds at the bases Abdomen is soft nontender Examination lower extremities shows no significant edema - Labs CBC & Chem 7: 04/19/23 08:44 04/20/23 15:40 Labs: Abnormal Lab Results - Last 24 Hours (Table) 04/20/23 Range/Units 15:40 Sodium 130 L (137-145) mmol/L BUN 3 L (9-20) mg/dL Creatinine 0.46 L (0.66-1.25) mg/dL Calcium 7.6 L (8.4-10.2) mg/dL Assessment and Plan Assessment: 1. Hyponatremia associated with liver cirrhosis. Improved post IV saline. Cu rrently discontinued. 2. Liver cirrhosis with portal hypertension and sinusitis 3. Hypokalemia status post replacement Plan: Continue off of IV fluids Repeat labs in a.m. Recommend to DC every 8 hours BMP. can check sodium level this evening and then again in a.m.
--- NOTE | 2023-04-21 14:46 | US ---
Ultrasound-guided paracentesis. DATE OF EXAM: 04/21/2023 CLINICAL HISTORY: Pain The procedure was discussed with the patient. The risks, complications, benefits, and alternatives we re discussed and any questions were answered. Informed consent was obtained. The patient was placed s upine on the ultrasound table and prepped and draped in the usual sterile fashion. All elements of maximal barrier technique were utilized. Under ultrasound guidance, access into the right lower quadrant was obtained, via the paracentesis catheter system and direct ultrasound guidanc e. Approximately 4.5 liters of straw-colored fluid was removed. The patient was stable throughout the pr ocedure and remained stable upon discharge from Department of Radiology. IMPRESSION: Successful paracentesis under ultrasound guidance.
[2023-04-21 14:59] LABS: Basophils % (A) 0 %; Eosinophils # (A) 0.1 k/uL (0-0.7); Eosinophils % (A) 1 %; HCT 32.2 % (39.0-53.0); HGB 10.3 gm/dL (13.0-17.5); Hypochromasia Moderate; Lymphocytes # (A) 1.1 k/uL (1.0-4.8); Lymphocytes % (A) 19 %; MCH 35.8 pg (25.0-35.0); Macrocytosis Marked; Monocytes # (A) 0.3 k/uL (0-1.0); Monocytes % (A) 5 %; Neutrophils # (A) 4.4 k/uL (1.3-7.7); Neutrophils % (A) 75 %; Platelet Count 143 k/uL (150-450); RBC 2.87 m/uL (4.30-5.90); RDW 15.3 % (11.5-15.5); WBC 5.9 k/uL (3.8-10.6)
[2023-04-21 15:13] LABS: African American GFR (CKD) >90 (>60 ml/min/1.73 sqM); Anion Gap 5 mmol/L; Blood Urea Nitrogen 3 mg/dL (9-20); Calcium 7.8 mg/dL (8.4-10.2); Carbon Dioxide 27 mmol/L (22-30); Chloride 100 mmol/L (98-107); Glucose 99 mg/dL (74-99); Magnesium 1.7 mg/dL (1.6-2.3); Non-African American GFR(CKD) >90 (>60 ml/min/1.73 sqM); Potassium 3.6 mmol/L (3.5-5.1); Sodium 132 mmol/L (137-145)
[2023-04-21] MEDS: ALBUMIN HUMAN 25% 50 ML in EMPTY BAG 1 BAG IVPB SCH ×2 (16:36→17:36)
[2023-04-21 20:36] LABS: African American GFR (CKD) >90 (>60 ml/min/1.73 sqM); Anion Gap 4 mmol/L; Blood Urea Nitrogen 4 mg/dL (9-20); Calcium 7.7 mg/dL (8.4-10.2); Carbon Dioxide 25 mmol/L (22-30); Chloride 101 mmol/L (98-107); Glucose 82 mg/dL (74-99); Non-African American GFR(CKD) >90 (>60 ml/min/1.73 sqM); Potassium 4.1 mmol/L (3.5-5.1); Sodium 130 mmol/L (137-145)
[2023-04-22 02:29] LABS: Appearance,BF Clear (Clear)
[2023-04-22 04:50] VITALS: RESP 16
[2023-04-22 06:34] LABS: Glucose, BF Source Ascities; Glucose, Body Fluid 94 mg/dL; LDH, Body Fluid Source Ascities; T. Protein, Body Fluid Source Ascities; Total Protein, Body Fluid 1570 mg/dL
[2023-04-22] MEDS: MIDODRINE 5 MG TAB PO SCH ×3 (06:35→16:17)
[2023-04-22 07:05] LABS: Basophils % (A) 0 %; Eosinophils # (A) 0.1 k/uL (0-0.7); Eosinophils % (A) 2 %; HCT 32.3 % (39.0-53.0); HGB 10.3 gm/dL (13.0-17.5); Hypochromasia Slight; Lymphocytes # (A) 1.4 k/uL (1.0-4.8); Lymphocytes % (A) 24 %; MCH 35.6 pg (25.0-35.0); MCHC 31.9 g/dL (31.0-37.0); MCV 111.6 fL (80.0-100.0); Macrocytosis Marked; Mean Platelet Volume 10.5; Monocytes # (A) 0.3 k/uL (0-1.0); Monocytes % (A) 5 %; Neutrophils # (A) 3.9 k/uL (1.3-7.7); Neutrophils % (A) 68 %; Platelet Count 141 k/uL (150-450); RDW 15.4 % (11.5-15.5); WBC 5.8 k/uL (3.8-10.6)
[2023-04-22 07:09] LABS: African American GFR (CKD) >90 (>60 ml/min/1.73 sqM); Anion Gap 4 mmol/L; Blood Urea Nitrogen 3 mg/dL (9-20); Calcium 7.8 mg/dL (8.4-10.2); Carbon Dioxide 24 mmol/L (22-30); Chloride 103 mmol/L (98-107); Glucose 76 mg/dL (74-99); Magnesium 1.7 mg/dL (1.6-2.3); Non-African American GFR(CKD) >90 (>60 ml/min/1.73 sqM); Potassium 4.1 mmol/L (3.5-5.1); Sodium 131 mmol/L (137-145)
[2023-04-22] MEDS: NICOTINE 21MG/24HR PATCH TRANSDERM SCH (08:53)
[2023-04-22 10:01] LABS: Albumin, Fluid Source Ascites
--- NOTE | 2023-04-22 12:08 | P.PN ---
Subjective Patient is seen for follow-up for hyponatremia. Sodium has been staying at 132 to 130 No complaints. Saline has been discontinued. Status post paracentesis on 04/21/2023 with 0.5 L of fluid removed. Patient is tolerating oral intake. Objective - Vital Signs Vital signs: Vital Signs Temp 98.1 F 04/22/23 04:00 Pulse 73 04/22/23 08:00 Resp 16 04/22/23 08:00 BP 96/66 04/22/23 08:00 Pulse Ox 98 04/22/23 08:00 FiO2 Intake & Output 04/21/23 04/22/23 04/22/23 18:59 06:59 18:59 Intake Total 218 540 180 Balance 218 540 180 Intake: Intake, IV Titration 100 Amount Albumin Human 25% 50 ml 100 In Empty Bag 1 bag @ 50 mls/hr IVPB Q1H [facility] Rx#: [id number] Oral 118 540 180 Other: Voiding Method Toilet Toilet Toilet # Voids 1 1 - Exam Awake, comfortable, no acute distress Examination of the heart S1 and S2 Examination lungs decreased breath sounds at the bases Abdomen is soft nontender Examination lower extremities shows no significant edema - Labs CBC & Chem 7: 04/22/23 06:16 04/22/23 06:16 Labs: Abnormal Lab Results - Last 24 Hours (Table) 04/21/23 04/21/23 04/21/23 Range/Units 14:42 14:42 20:18 RBC 2.87 L (4.30-5.90) m/uL Hgb 10.3 L (13.0-17.5) gm/dL Hct 32.2 L (39.0-53.0) % MCV 112.0 H (80.0-100.0) fL MCH 35.8 H (25.0-35.0) pg Plt Count 143 L (150-450) k/uL Macrocytosis Marked A Sodium 132 L 130 L (137-145) mmol/L BUN 3 L 4 L (9-20) mg/dL Creatinine 0.53 L 0.49 L (0.66-1.25) mg/dL Calcium 7.8 L 7.7 L (8.4-10.2) mg/dL 04/22/23 04/22/23 Range/Units 06:16 06:16 RBC 2.90 L (4.30-5.90) m/uL Hgb 10.3 L (13.0-17.5) gm/dL Hct 32.3 L (39.0-53.0) % MCV 111.6 H (80.0-100.0) fL MCH 35.6 H (25.0-35.0) pg Plt Count 141 L (150-450) k/uL Macrocytosis Marked A Sodium 131 L (137-145) mmol/L BUN 3 L (9-20) mg/dL Creatinine 0.56 L (0.66-1.25) mg/dL Calcium 7.8 L (8.4-10.2) mg/dL Assessment and Plan Assessment: 1. Hyponatremia associated with liver cirrhosis. Improved post IV saline. Currently discontinued. 2. Liver cirrhosis with portal hypertension and ascites, status post paracentesis on 04/21/2023 with 4.5 L of fluid removed 3. Hypokalemia status post replacement Plan: Continue off of IV fluids Repeat labs in a.m. Can resume Aldactone.
[2023-04-22 13:26] LABS: African American GFR (CKD) >90 (>60 ml/min/1.73 sqM); Anion Gap 2 mmol/L; Blood Urea Nitrogen 3 mg/dL (9-20); Calcium 7.9 mg/dL (8.4-10.2); Carbon Dioxide 28 mmol/L (22-30); Chloride 102 mmol/L (98-107); Glucose 81 mg/dL (74-99); Non-African American GFR(CKD) >90 (>60 ml/min/1.73 sqM); Potassium 4.4 mmol/L (3.5-5.1); Sodium 132 mmol/L (137-145)
[2023-04-22] MEDS ORDERED: SODIUM CHLORIDE 0.9% 500 ML 500 ML IV ONE (15:44)
--- NOTE | 2023-04-22 15:50 | P.PN ---
Subjective Progress Note Date: 04/22/23 57-year-old man with medical history of alcoholic abuse disorder, nicotine dependence, who does not follow with a doctor presented for generalized weakness, dizziness, increasing belly swelling. In the emergency room, patient was afebrile, 95/65, heart rate 86, 98% on room air. CBC remarkable for anemia done today 0.6, platelets of 136. Basic metabolic panel shows sodium 126, potassium 2.9, chloride 96, CO2 of 19, no anion gap, BUN is less than 2, creatinine is 0.49. Liver function test showed AST 103, ALT of 18, alkaline phosphatase of 227. Troponin was less than 0.012. Lipase is 119. Alcohol level is 182. INR is 1.1. Abdominal US demonstrate mild to moderate abdominal ascites, nonspecific gallbladder wall thickening, mild left-sided pelviectasis with possible early hydronephrosis. CT AP showed hepatic cirrhosis, bilateral pleural effusion, large abdominal ascites, hepatic colopathy, gall bladder thickening likely secondary to cirrhosis. Case was discussed emergency room provider decision was made to with the patient for further evaluation metabolic arrangements and ascites. Patient was initially placed on Lasix, and spironolactone. However, nephrology favored IV fluids. With IV fluids, patient's dizziness did improve, sodium did improve to 130. He was scheduled for a paracentesis on 04/21. Paracentesis under US guidance revealed 4.5 L of straw colored fluid. Pertient studies include Abd US, CT AP, paracentesis US. 04/22 Patient was seen and examined. He reports lightheadedness when standing up from a seated position. CBC shows Hg of 10.3 with MCV of 111.6 and Plt count of 141. BMP shows Na 131, BUN 3, Cr 0.56 and Ca 7.8. BP this morning is 93/60 P 71, T 98.1F, 99% on RA. He remains on Midodrine 10 mg PO TID. Ascites culture is pending, however his SAAG of 0.7 and WBC count of 16 seems to indicate presence of portal hypertension. General: non toxic, no distress, appears at stated age Derm: warm, dry Head: atraumatic, normocephalic, symmetric Eyes: EOMI, no lid lag, anicteric sclera Mouth: no lip lesion, mucus membranes moist Cardiovascular: S1S2 reg, no murmur, positive posterior tibial pulse bilateral, Lungs: CTA bilateral, no rhonchi, no rales , no accessory muscle use Abdominal: soft, nontender to palpation, no guarding, distended Ext: no gross muscle atrophy, no edema, no contractures Neuro: no focal neuro deficits Psych: Alert, oriented, appropriate affect Hypotension Decompensated liver cirrhosis Ascites Hyponatremia, hypovolemic per nephrology Alcohol abuse disorder Nicotine dependence Based on my assessment of this patient, this patient meets a moderate complexity level of care. Patient has a new diagnosis of alcoholic cirrhosis with uncertain prognosis. Hypotension: BP borderline low. He is currently receiving albumin IV. He is already on Midodrine 10 mg PO TID. 500 cc NS bolus ordered. PT and OT consulted. Orthostats ordered. Bilateral thigh high melchor hose. Decompensated liver cirrhosis: Needs outpatient GI followup. Ascites: 4.5L Straw colored fluid removed 04/21. Hyponatremia, hypovolemic per nephrology: Improved. Nephrology on board. Alcohol abuse disorder: Emphasized the need to quit drinking alcohol. Nicotine dependence: Nicotine patch ordered. I have reviewed the following universal branch consultant notes: Nephrology note reviewed. I have reviewed the results of the following tests: CBC, BMP reviewed as above. I have ordered the following tests: BMP ordered for tomorrow morning. I have discussed the care of this patient with the following independent historian: I have independently interpreted the following test below: I have discussed the management of this patient with the following physician: Objective - Vital Signs Vital signs: Vital Signs Temp 98.1 F 04/22/23 04:00 Pulse 71 04/22/23 04:00 Resp 16 04/22/23 04:00 BP 93/60 04/22/23 04:00 Pulse Ox 99 04/22/23 04:00 FiO2 Intake & Output 04/21/23 04/22/23 04/22/23 18:59 06:59 18:59 Intake Total 218 540 Balance 218 540 Intake: Intake, IV Titration 100 Amount Albumin Human 25% 50 ml 100 In Empty Bag 1 bag @ 50 mls/hr IVPB Q1H [facility] Rx#: [id number] Oral 118 540 Other: Voiding Method Toilet Toilet # Voids 1 1 - Labs CBC & Chem 7: 04/22/23 06:16 04/22/23 12:59 Labs: Abnormal Lab Results - Last 24 Hours (Table) 04/21/23 04/21/23 04/21/23 Range/Units 14:42 14:42 20:18 RBC 2.87 L (4.30-5.90) m/uL Hgb 10.3 L (13.0-17.5) gm/dL Hct 32.2 L (39.0-53.0) % MCV 112.0 H (80.0-100.0) fL MCH 35.8 H (25.0-35.0) pg Plt Count 143 L (150-450) k/uL Macrocytosis Marked A Sodium 132 L 130 L (137-145) mmol/L BUN 3 L 4 L (9-20) mg/dL Creatinine 0.53 L 0.49 L (0.66-1.25) mg/dL Calcium 7.8 L 7.7 L (8.4-10.2) mg/dL 04/22/23 04/22/23 Range/Units 06:16 06:16 RBC 2.90 L (4.30-5.90) m/uL Hgb 10.3 L (13.0-17.5) gm/dL Hct 32.3 L (39.0-53.0) % MCV 111.6 H (80.0-100.0) fL MCH 35.6 H (25.0-35.0) pg Plt Count 141 L (150-450) k/uL Macrocytosis Marked A Sodium 131 L (137-145) mmol/L BUN 3 L (9-20) mg/dL Creatinine 0.56 L (0.66-1.25) mg/dL Calcium 7.8 L (8.4-10.2) mg/dL
[2023-04-22 21:23] LABS: African American GFR (CKD) >90 (>60 ml/min/1.73 sqM); Anion Gap 5 mmol/L; Blood Urea Nitrogen 5 mg/dL (9-20); Calcium 7.7 mg/dL (8.4-10.2); Carbon Dioxide 26 mmol/L (22-30); Chloride 100 mmol/L (98-107); Glucose 98 mg/dL (74-99); Non-African American GFR(CKD) >90 (>60 ml/min/1.73 sqM); Potassium 4.2 mmol/L (3.5-5.1); Sodium 131 mmol/L (137-145)
[2023-04-23] MEDS: MIDODRINE 5 MG TAB PO SCH ×2 (06:16→11:58)
[2023-04-23] MEDS: NICOTINE 21MG/24HR PATCH TRANSDERM SCH (10:13)
[2023-04-23 10:23] VITALS: BP 89/63; PULSE 64; TEMP 98.1
--- NOTE | 2023-04-23 12:16 | P.PN ---
Subjective Patient is seen for follow-up for hyponatremia. Sodium has been staying at 132 to 130 No complaints. Saline has been discontinued. Status post paracentesis on 04/21/2023 with 4.5 L of fluid removed. Patient is tolerating oral intake. Objective - Vital Signs Vital signs: Vital Signs Temp 98.1 F 04/23/23 10:05 Pulse 64 04/23/23 10:05 Resp 16 04/23/23 10:05 BP 89/63 04/23/23 10:05 Pulse Ox 99 04/23/23 10:05 FiO2 Intake & Output 04/22/23 04/23/23 04/23/23 18:59 06:59 18:59 Intake Total 540 540 360 Balance 540 540 360 Weight 52.163 kg Intake: Oral 540 540 360 Other: Voiding Method Toilet Toilet # Voids 1 1 - Exam Awake, comfortable, no acute distress Examination of the heart S1 and S2 Examination lungs decreased breath sounds at the bases Abdomen is soft nontender Examination lower extremities shows no significant edema - Labs CBC & Chem 7: 04/22/23 06:16 04/22/23 20:57 Labs: Abnormal Lab Results - Last 24 Hours (Table) 04/22/23 04/22/23 Range/Units 12:59 20:57 Sodium 132 L 131 L (137-145) mmol/L BUN 3 L 5 L (9-20) mg/dL Creatinine 0.58 L 0.58 L (0.66-1.25) mg/dL Calcium 7.9 L 7.7 L (8.4-10.2) mg/dL Assessment and Plan Assessment: 1. Hyponatremia associated with liver cirrhosis. Improved post IV saline. Currently discontinued. 2. Liver cirrhosis with portal hypertension and ascites, status post paracentesis on 04/21/2023 with 4.5 L of fluid removed 3. Hypokalemia status post replacement Plan: Okay for discharge from nephrology standpoint. Continue with midodrine Add Aldactone as outpatient if blood pressure is better.
--- NOTE | 2023-04-23 13:13 | P.DS ---
Providers Date of admission: 04/22/23 12:20 Expected date of discharge: 04/23/23 Attending physician: Michale Rendon MD Consults: 04/18/23 19:00 Consult Physician Routine Consulting Provider: Samson Gar Consult Reason/Comments: hyponatremia Do you want consulting provider notified?: Yes Primary care physician: Stated None Hospital Course: 57-year-old man with medical history of alcoholic abuse disorder, nicotine dependence, who does not follow with a doctor presented for generalized weakness, dizziness, increasing belly swelling. In the emergency room, patient was afebrile, 95/65, heart rate 86, 98% on room air. CBC remarkable for anemia done today 0.6, platelets of 136. Basic metabolic panel shows sodium 126, potassium 2.9, chloride 96, CO2 of 19, no anion gap, BUN is less than 2, creatinine is 0.49. Liver function test showed AST 103, ALT of 18, alkaline phosphatase of 227. Troponin was less than 0.012. Lipase is 119. Alcohol level is 182. INR is 1.1. Abdominal US demonstrate mild to moderate abdominal ascites, nonspecific gallbladder wall thickening, mild left-sided pelviectasis with possible early hydronephrosis. CT AP showed hepatic cirrhosis, bilateral pleural effusion, large abdominal ascites, hepatic colopathy, gall bladder thickening likely secondary to cirrhosis. Case was discussed emergency room provider decision was made to with the patient for further evaluation metabolic arrangements and ascites. Patient was initially placed on Lasix, and spironolactone. However, nephrology favored IV fluids. With IV fluids, patient's dizziness did improve, sodium did improve to 130. He was scheduled for a paracentesis on 04/21. Paracentesis under US guidance revealed 4.5 L of straw colored fluid. Pertient studies include Abd US, CT AP, paracentesis US. 04/22 Patient was seen and examined. He reports lightheadedness when standing up from a seated position. CBC shows Hg of 10.3 with MCV of 111.6 and Plt count of 141. BMP shows Na 131, BUN 3, Cr 0.56 and Ca 7.8. BP this morning is 93/60 P 71, T 98.1F, 99% on RA. He remains on Midodrine 10 mg PO TID. Ascites culture is pending, however his SAAG of 0.7 and WBC count of 16 seems to indicate presence of portal hypertension. 04/23 Patient was seen and examined. He continues to reports lightheadedness with positional changes. He is refusing SNF or home PT/OT. Yesterday, his orthostats were positive and he was given a 500 cc bolus. No new labs were done today. He is advised slow positional changes. He will be discharged home with a GI followup within 1 week. He will be prescribed Midodrine. Aldactone and beta rachel will be held due to hypotension. Patient verbalized understanding of the plan. General: non toxic, no distress, appears at stated age Derm: warm, dry Head: atraumatic, normocephalic, symmetric Eyes: EOMI, no lid lag, anicteric sclera Mouth: no lip lesion, mucus membranes moist Cardiovascular: S1S2 reg, no murmur, positive posterior tibial pulse bilateral, Lungs: CTA bilateral, no rhonchi, no rales , no accessory muscle use Abdominal: soft, nontender to palpation, no guarding, distended Ext: no gross muscle atrophy, no edema, no contractures Neuro: no focal neuro deficits Psych: Alert, oriented, appropriate affect Discharge Diagnosis: Orthostatic Hypotension Decompensated liver cirrhosis Ascites Hyponatremia, hypovolemic per nephrology Alcohol abuse disorder Nicotine dependence This complex discharge took 35 minutes to complete. Patient Condition at Discharge: Stable Plan - Discharge Summary Discharge Rx Participant: Yes New Discharge Prescriptions: New Midodrine [ProAmatine] 10 mg PO AC-TID #90 tab Discharge Medication List Midodrine [ProAmatine] 10 mg PO AC-TID #90 tab 04/23/23 [Rx] Follow up Appointment(s)/Referral(s): Sarai Hilliard MD [STAFF PHYSICIAN] - 05/19/23 3:45 pm None,Stated [Primary Care Provider] - 1-2 days (Please establish and follow up with a primary physician. ) Patient Instructions/Handouts: Ascites (DC), Paracentesis (DC) Discharge/Stand Alone Forms: AA Meetings [place], [facility], Outpatient Counseling, Inp Substance Abuse Facilities, Area PCPs Discharge Disposition: HOME SELF-CARE
== END 2023-04-23 12:31 | disposition home or self-care (01) | DRG 433 ==
LOC: EC 13:46 → 3SCARD 20:25 → OBSVTOIN 04-22 12:20
PROVIDERS: ADMIT Student in an Organized Health Care Education/Training Program; ATTEND Student in an Organized Health Care Education/Training Program
PROC: 0W9G3ZZ Drainage of Peritoneal Cavity, Percutaneous Approach (ICD-10-PCS; principal; 2023-04-21)
DX: K70.31 Alcoholic cirrhosis of liver with ascites (principal); E87.1 Hypo-osmolality and hyponatremia; K76.6 Portal hypertension; N13.30 Unspecified hydronephrosis; F10.10 Alcohol abuse, uncomplicated; E87.70 Fluid overload, unspecified; F17.210 Nicotine dependence, cigarettes, uncomplicated; S40.812A Abrasion of left upper arm, initial encounter; S40.811A Abrasion of right upper arm, initial encounter; K64.4 Residual hemorrhoidal skin tags; E87.6 Hypokalemia; N28.89 Other specified disorders of kidney and ureter; E86.1 Hypovolemia; I95.1 Orthostatic hypotension; K63.89 Other specified diseases of intestine; W19.XXXA Unspecified fall, initial encounter; R29.6 Repeated falls; Y90.6 Blood alcohol level of 120-199 mg/100 ml; Z66 Do not resuscitate; Z91.81 History of falling; Z87.19 Personal history of other diseases of the digestive system
CPT/HCPCS: 36415; 49083; 74177; 76700; 80048; 80053; 80320; 82042; 82140; 82150; 82945; 83615; 83690; 83735; 84157; 84484; 85025; 85610; 85730; 87070; 87075; 87205; 89050; 93005; 94760; 96365; 96366; 96375; 99285

== ENCOUNTER 2023-04-23 22:26 | Observation (INO) | payer OTHER ==
[2023-04-24 01:11] LABS: Basophils % (A) 0 %; Eosinophils # (A) 0.1 k/uL (0-0.7); Eosinophils % (A) 1 %; HCT 36.4 % (39.0-53.0); HGB 11.9 gm/dL (13.0-17.5); Hypochromasia Slight; Lymphocytes # (A) 1.6 k/uL (1.0-4.8); Lymphocytes % (A) 24 %; MCH 36.2 pg (25.0-35.0); MCHC 32.7 g/dL (31.0-37.0); Macrocytosis Marked; Mean Platelet Volume 9.8; Monocytes # (A) 0.3 k/uL (0-1.0); Monocytes % (A) 4 %; Neutrophils # (A) 4.5 k/uL (1.3-7.7); Neutrophils % (A) 69 %; Platelet Count 202 k/uL (150-450); RBC 3.29 m/uL (4.30-5.90); RDW 15.6 % (11.5-15.5); WBC 6.5 k/uL (3.8-10.6)
[2023-04-24 01:19] LABS: MCV 110.7 fL (80.0-100.0)
[2023-04-24 01:22] LABS: ALT 22 U/L (4-49); AST 116 U/L (17-59); African American GFR (CKD) >90 (>60 ml/min/1.73 sqM); Albumin 3.1 g/dL (3.5-5.0); Alkaline Phosphatase 234 U/L (38-126); Anion Gap 14 mmol/L; Blood Urea Nitrogen 3 mg/dL (9-20); Calcium 8.4 mg/dL (8.4-10.2); Carbon Dioxide 19 mmol/L (22-30); Chloride 97 mmol/L (98-107); Glucose 84 mg/dL (74-99); Magnesium 1.8 mg/dL (1.6-2.3); Non-African American GFR(CKD) >90 (>60 ml/min/1.73 sqM); Potassium 4.4 mmol/L (3.5-5.1); Sodium 130 mmol/L (137-145); Total Bilirubin 0.7 mg/dL (0.2-1.3); Total Protein 6.2 g/dL (6.3-8.2)
[2023-04-24 01:34] LABS: Alcohol 115 mg/dL
[2023-04-24] MEDS ORDERED: SODIUM CHLORIDE 0.9% 500 ML 500 ML IV ONE (05:11)
--- NOTE | 2023-04-24 05:18 | ED ---
Weakness HPI - General Chief complaint: Weakness Stated complaint: Recheck Time Seen by Provider: 04/24/23 05:00 Source: patient Mode of arrival: ambulatory Limitations: no limitations - History of Present Illness Initial comments: 57-year-old male with past medical history of alcohol abuse, liver disease who presents to the emergency department reporting continued weakness. He was just discharged from [facility] earlier in the day. He had been evaluated by GI and had a paracentesis completed which removed 5 L. He was diagnosed with orthostatic hypotension. He is placed on Midrin. States that he has been taking his medications as directed however continues to feel extremely dizzy at home. He does admit to one fall without head trauma. He admits to significant weakness in his bilateral lower extremities which is equal. He does admit that he went home and drank. Patient lives alone and feels as if he needs more help in caring for himself. No other alleviating, precipitating factors - Related Data Previous Rx's Medication Instructions Recorded Midodrine [ProAmatine] 10 mg PO AC-TID #90 tab 04/23/23 Allergies Allergy/AdvReac Type Severity Reaction Status Date / Time No Known Allergies Allergy Verified 04/24/23 07:55 Review of Systems ROS Statement: Those systems with pertinent positive or pertinent negative responses have been documented in the HPI. ROS Other: All systems not noted in ROS Statement are negative. Past Medical History Past Medical History: GI Bleed, Liver Disease History of Any Multi-Drug Resistant Organisms: None Reported Past Surgical History: No Surgical Hx Reported Past Psychological History: No Psychological Hx Reported Smoking Status: Current every day smoker Past Alcohol Use History: Daily Past Drug Use History: None Reported - Past Family History Mother Family Medical History: Hypertension General Exam Limitations: no limitations General appearance: alert, in no apparent distress Head exam: Present: atraumatic, normocephalic, normal inspection Eye exam: Present: normal appearance, PERRL, EOMI. Absent: scleral icterus, conjunctival injection, periorbital swelling ENT exam: Present: normal exam, mucous membranes moist Neck exam: Present: normal inspection. Absent: tenderness, meningismus, lymphadenopathy Respiratory exam: Present: normal lung sounds bilaterally. Absent: respiratory distress, wheezes, rales, rhonchi, stridor Cardiovascular Exam: Present: regular rate, normal rhythm, normal heart sounds. Absent: systolic murmur, diastolic murmur, rubs, gallop, clicks GI/Abdominal exam: Present: soft, normal bowel sounds. Absent: distended, tenderness, guarding, rebound, rigid Extremities exam: Present: full ROM, normal capillary refill, other (Patient has 3/5 strength in bilateral lower extremities.). Absent: tenderness, pedal edema, joint swelling, calf tenderness Back exam: Present: normal inspection Neurological exam: Present: alert, oriented X3, CN II-XII intact Psychiatric exam: Present: normal affect, normal mood Skin exam: Present: warm, dry, intact, normal color. Absent: rash Course Vital Signs 04/23/23 04/24/23 04/24/23 22:44 04:23 05:09 Temperature 97.9 F 97.4 F L Pulse Rate 88 86 Respiratory 16 16 Rate Blood Pressure 98/72 91/66 Blood Pressure 84/59 [Sitting] Blood Pressure 68/51 [Standing] Blood Pressure 92/58 [Supine] O2 Sat by Pulse 98 100 Oximetry 04/24/23 07:20 Temperature 98 F Pulse Rate 80 Respiratory 16 Rate Blood Pressure 97/58 Blood Pressure [Sitting] Blood Pressure [Standing] Blood Pressure [Supine] O2 Sat by Pulse 99 Oximetry Medical Decision Making - Medical Decision Making Was pt. sent in by a medical professional or institution (RIANNA Cummings, BUILDING MAINTENANCE SUPERINTENDENT, urgent care, hospital, or fci...) When possible be specific @ -No Did you speak to anyone other than the patient for history (EMS, parent, family, police, friend...)? What history was obtained from this source @ -No Did you review nursing and triage notes (agree or disagree)? Why? @ -I reviewed and agree with nursing and triage notes Were old charts reviewed (outside hosp., previous admission, EMS record, old EKG, old radiological studies, urgent care reports/EKG's, fci records)? Report findings @ -I reviewed the patient's discharge summary from earlier today Differential Diagnosis (chest pain, altered mental status, abdominal pain women, abdominal pain men, vaginal bleeding, weakness, fever, dyspnea, syncope, headache, dizziness, GI bleed, back pain, seizure, CVA, palpatations, mental health, musculoskeletal)? @ -Differential Weakness: Hypoglycemia, shock, sepsis, hyponatremia, anemia, infection, UT, ETOH, adverse medicine reaction, overdose, stroke, this is not meant to be an all-inclusive list. EKG interpreted by me (3pts min.). @ -Yes and demonstrates sinus rhythm with a rate of 76. RI interval 151. QRS 86. QTC of 432. No acute ST segment elevations or depressions X-rays interpreted by me (1pt min.). @ -None done CT interpreted by me (1pt min.). @ -None done U/S interpreted by me (1pt. min.). @ -None done What testing was considered but not performed or refused? (CT, X-rays, U/S, labs)? Why? @ -None What meds were considered but not given or refused? Why? @ -None Did you discuss the management of the patient with other professionals (professionals i.e. , PA, BUILDING MAINTENANCE SUPERINTENDENT, lab, RT, psych nurse, social director, green chain puller, teacher, guest services officer, assistant case manager)? Give summary @ -Dr. choi Was smoking cessation discussed for >3mins.? @ -No Was critical care preformed (if so, how long)? @ -No Were there social determinants of health that impacted care today? How? (Homelessness, low income, unemployed, alcoholism, drug addiction, transportation, low edu. Level, literacy, decrease access to med. care, intermediate, rehab)? @ -Alcoholism Was there de-escalation of care discussed even if they declined (Discuss DNR or withdrawal of care, Hospice)? DNR status @ -No What co-morbidities impacted this encounter? (DM, HTN, Smoking, COPD, CAD, Cancer, CVA, ARF, Chemo, Hep., AIDS, mental health diagnosis, sleep apnea, morbid obesity)? @ -Alcoholic liver disease Was patient admitted / discharged? Hospital course, mention meds given and route, prescriptions, significant lab abnormalities, going to OR and other pertinent info. @ -Upon arrival patient was placed into room 13. History and physical exam perf ormed. Orthostatics are obtained and are positive. Laboratory studies are repeated. Patient was given a 500 mL bolus of normal saline. Patient remains continuously weak. I note that the patient was previously refusing rehab on his admission. Patient explains that he thought rehab was for his substance abuse and that's why he was refusing to go. Admits that he does need physical rehabilitation and therefore is open to options to participate in this. I called and spoke with Dr. Choi who will admit the patient. Case management will be placed on consult Undiagnosed new problem with uncertain prognosis? @ -No Drug Therapy requiring intensive monitoring for toxicity (Heparin, Nitro, Insulin, Cardizem)? @ -No Were any procedures done? @ -No Diagnosis/symptom? @ -Acute generalized weakness, presyncope, orthostatic hypotension, acute a lcohol intoxication, chronic alcohol use Acute, or Chronic, or Acute on Chronic? @ -Acute Uncomplicated (without systemic symptoms) or Complicated (systemic symptoms)? @ -Complicated Side effects of treatment? @ -No Exacerbation, Progression, or Severe Exacerbation? @ -No Poses a threat to life or bodily function? How? (Chest pain, USA, UT, pneumonia, PE, COPD, DKA, ARF, appy, cholecystitis, CVA, Diverticulitis, Homicidal, Jennifer cidal, threat to staff... and all critical care pts) @ -No - Lab Data Result diagrams: 04/24/23 01:02 04/24/23 01:02 Lab Results 04/24/23 04/24/23 Range/Units 01:02 01:02 WBC 6.5 (3.8-10.6) k/uL RBC 3.29 L (4.30-5.90) m/uL Hgb 11.9 L (13.0-17.5) gm/dL Hct 36.4 L (39.0-53.0) % MCV 110.7 H (80.0-100.0) fL MCH 36.2 H (25.0-35.0) pg MCHC 32.7 (31.0-37.0) g/dL RDW 15.6 H (11.5-15.5) % Plt Count 202 (150-450) k/uL MPV 9.8 Neutrophils % 69 % Lymphocytes % 24 % Monocytes % 4 % Eosinophils % 1 % Basophils % 0 % Neutrophils # 4.5 (1.3-7.7) k/uL Lymphocytes # 1.6 (1.0-4.8) k/uL Monocytes # 0.3 (0-1.0) k/uL Eosinophils # 0.1 (0-0.7) k/uL Basophils # 0.0 (0-0.2) k/uL Hypochromasia Slight Macrocytosis Marked A Sodium 130 L (137-145) mmol/L Potassium 4.4 (3.5-5.1) mmol/L Chloride 97 L (98-107) mmol/L Carbon Dioxide 19 L (22-30) mmol/L Anion Gap 14 mmol/L BUN 3 L (9-20) mg/dL Creatinine 0.65 L (0.66-1.25) mg/dL Est GFR (CKD-EPI)AfAm >90 (>60 ml/min/1.73 sqM) Est GFR (CKD-EPI)NonAf >90 (>60 ml/min/1.73 sqM) Glucose 84 (74-99) mg/dL Calcium 8.4 (8.4-10.2) mg/dL Magnesium 1.8 (1.6-2.3) mg/dL Total Bilirubin 0.7 (0.2-1.3) mg/dL AST 116 H (17-59) U/L ALT 22 (4-49) U/L Alkaline Phosphatase 234 H (38-126) U/L Total Protein 6.2 L (6.3-8.2) g/dL Albumin 3.1 L (3.5-5.0) g/dL Serum Alcohol 115 mg/dL Disposition Clinical Impression: Orthostatic hypotension, Alcohol intoxication Disposition: ADMITTED IP TO THIS HOSP Condition: Stable Is patient prescribed a controlled substance at d/c from ED?: No Time of Disposition: 05:20 Decision to Admit Reason: Admit from EC Decision Date: 04/24/23 Decision Time: 05:20
[2023-04-24] MEDS ORDERED: NALOXONE 0.4 MG/ML 1 ML VIAL IV PRN (05:20)
[2023-04-24] MEDS ORDERED: LORazepam 0.5 MG TAB PO PRN (05:42)
[2023-04-24] MEDS ORDERED: THIAMINE 100 MG/ML 2 ML VIAL IM STA (05:42)
[2023-04-24] MEDS ORDERED: LORazepam 1 MG TAB PO PRN ×3 (05:42)
--- NOTE | 2023-04-24 05:42 | P.HPIM ---
History of Present Illness H&P Date: 04/24/23 Patient is a 57-year-old male with a PMH of EtOH abuse, cirrhosis, and tobacco abuse who presents to the emergency room with complaints of weakness. The patient was discharged yesterday after a 5 day hospitalization for hypotension and ascites, status post paracentesis. The patient had persistent weakness and was advised to go to a [facility]. The patient was subsequently discharged. He reports however that shortly after discharge, he noticed how weak he was and that he had a fall earlier today, denied experiencing head trauma. He also reports ongoing alcohol use and states that his main concern is seeking help for his profound weakness. He denies drinking chest discomfort or shortness of rola th. Denied nausea, vomiting, fever, chills, cough. In the emergency room, patient's vitals upon arrival BP 98/72, pulse 88, pO2 98% on room air. EKG was sinus rhythm at [address]/T-wave changes noted and reviewed by me. Laboratory evaluation revealed a hemoglobin of 11.9 with MCV 110, sodium 130. ED documentation reviewed and case discussed with ED provider. Review of systems: Pertinent positives and negatives as discussed in HPI, a complete review of systems was performed and all other systems are negative. Physical examination: Vital signs reviewed General: non toxic, no distress, appears at stated age, normal weight Derm: no unusual rashes/lesions, warm Head: atraumatic, normocephalic, symmetric Eyes: EOMI, no lid lag, anicteric sclera, pupils equal round reactive to light ENT: Nose and ears atraumatic Neck: No cervical lymphadenopathy, trachea midline, supple Mouth: no lip lesion, mucus membranes moist Cardiovascular: S1S2 reg, no murmur, positive dorsalis pedis pulse bilateral, no edema Lungs: CTA bilateral, no rhonchi, no rales, no accessory muscle use Abdominal: soft, nontender to palpation, no guarding Ext: muscle strength 3 out of 5 in all 4 extremities grossly, no gross muscle atrophy, no contractures, Neuro: CN II-XI grossly intact, no gross focal neuro deficits Psych: Alert, oriented, appropriate affect Assessment: Debility, suspect due to ongoing alcohol use Hyponatremia, hypovolemic as per recent nephrology consultation Hypotension Alcohol abuse Macrocytosis Imaging: EKG was sinus rhythm at [address]/T-wave changes noted and reviewed by me. Data Review: Laboratory evaluation revealed a hemoglobin of 11.9 with MCV 110, sodium 130. Plan: PT consult Cardiac monitoring Continue with Midodrin 10 mg by mouth 3 times a day Fall precautions Strongly advised on importance of alcohol cessation Check B12 and folate levels DVT prophylaxis: Heparin subcu The patient is admitted with an anticipated less than 2 midnight stay for evaluation of debility CODE STATUS: Full Code Discussed with: Patient Anticipated discharge place: [facility] Past Medical History Past Medical History: GI Bleed, Liver Disease History of Any Multi-Drug Resistant Organisms: None Reported Past Surgical History: No Surgical Hx Reported Past Psychological History: No Psychological Hx Reported Smoking Status: Current every day smoker Past Alcohol Use History: Daily Past Drug Use History: None Reported - Past Family History Mother Family Medical History: Hypertension Medications and Allergies Home Medications Medication Instructions Recorded Confirmed Type Midodrine [ProAmatine] 10 mg PO AC-TID #90 tab 04/23/23 Rx Allergies Allergy/AdvReac Type Severity Reaction Status Date / Time No Known Allergies Allergy Verified 04/18/23 19:27 Physical Exam Vitals: Vital Signs Temp Pulse Resp BP BP BP BP 04/24/23 05:09 84/59 68/51 92/58 04/24/23 04:23 97.4 F L 86 16 91/66 04/23/23 22:44 97.9 F 88 16 98/72 Pulse Ox 04/24/23 05:09 04/24/23 04:23 100 04/23/23 22:44 98 Intake and Output 04/23/23 04/23/23 04/24/23 14:59 22:59 06:59 Other: Weight 54.431 kg Results CBC & Chem 7: 04/24/23 01:02 04/24/23 01:02 Labs: Abnormal Lab Results - Last 24 Hours (Table) 04/24/23 04/24/23 Range/Units 01:02 01:02 RBC 3.29 L (4.30-5.90) m/uL Hgb 11.9 L (13.0-17.5) gm/dL Hct 36.4 L (39.0-53.0) % MCV 110.7 H (80.0-100.0) fL MCH 36.2 H (25.0-35.0) pg RDW 15.6 H (11.5-15.5) % Macrocytosis Marked A Sodium 130 L (137-145) mmol/L Chloride 97 L (98-107) mmol/L Carbon Dioxide 19 L (22-30) mmol/L BUN 3 L (9-20) mg/dL Creatinine 0.65 L (0.66-1.25) mg/dL AST 116 H (17-59) U/L Alkaline Phosphatase 234 H (38-126) U/L Total Protein 6.2 L (6.3-8.2) g/dL Albumin 3.1 L (3.5-5.0) g/dL
[2023-04-24] MEDS: MIDODRINE 5 MG TAB PO SCH ×3 (08:54→16:03)
[2023-04-25 07:42] VITALS: RESP 16; TEMP 98
[2023-04-25] MEDS: MIDODRINE 5 MG TAB PO SCH ×2 (07:58→11:45)
[2023-04-25] MEDS ORDERED: THIAMINE 100 MG TAB PO SCH (09:00)
[2023-04-25 11:29] VITALS: BP 98/64; PULSE 90
--- NOTE | 2023-04-25 13:31 | P.DS ---
Providers Date of admission: 04/24/23 05:20 Expected date of discharge: 04/25/23 Attending physician: Mini Choi MD Primary care physician: Stated None Hospital Course: Patient is a 57-year-old male with a PMH of EtOH abuse, cirrhosis, and tobacco abuse who presents to the emergency room with complaints of weakness. The patient was discharged yesterday after a 5 day hospitalization for hypotension and ascites, status post paracentesis. The patient had persistent weakness and was advised to go to a [facility]. The patient was subsequently discharged. He reports however that shortly after discharge, he noticed how weak he was and that he had a fall earlier today, denied experiencing head trauma. He also reports ongoing alcohol use and states that his main concern is seeking help for his profound weakness. He denies drinking chest discomfort or shortness of breath. In the emergency room, patient's vitals upon arrival BP 98/72, pulse 88, pO2 98% on room air. EKG was sinus rhythm at [address]/T-wave changes noted and reviewed by me. Laboratory evaluation revealed a hemoglobin of 11.9 with MCV 110, sodium 130. PT and OT evaluated the patient and recommended that he would not qualify for rehab. His orthostatics were negative. Patient is advised slow positional changes to prevent lightheadedness and syncopal episodes. He verbalized understanding of the plan. Plan for discharge home today. Discussed with case management. Pertinent studies and procedures as above. General: non toxic, no distress, appears at stated age Derm: warm, dry Head: atraumatic, normocephalic, symmetric Eyes: EOMI, no lid lag, anicteric sclera Cardiovascular: S1S2 reg, no murmur Lungs: CTA bilateral, no rhonchi, no rales , no accessory muscle use Ext: no gross muscle atrophy, no edema, no contractures Neuro: no focal neuro deficits Psych: Alert, oriented, appropriate affect Discharge Diagnosis: Generalized weakness Decompensated liver cirrhosis Ascites Hyponatremia, hypovolemic Alcohol abuse disorder Nicotine dependence This complex discharge took 35 minutes to complete. Patient Condition at Discharge: Stable Plan - Discharge Summary Discharge Rx Participant: No New Discharge Prescriptions: Continue Midodrine [ProAmatine] 10 mg PO AC-TID #90 tab Discharge Medication List Midodrine [ProAmatine] 10 mg PO AC-TID #90 tab 04/23/23 [Rx] Follow up Appointment(s)/Referral(s): None,Stated [Primary Care Provider] - 1-2 days Patient Instructions/Handouts: Syncope (DC), Hypotension (DC) Activity/Diet/Wound Care/Special Instructions: midodrine medication prescription filled and given to patient via [facility]. Discharge/Stand Alone Forms: AA Meetings [place], Outpatient Counseling, Inp Substance Abuse Facilities, Area PCPs Discharge Disposition: HOME SELF-CARE
== END 2023-04-25 12:45 | disposition home or self-care (01) ==
LOC: EC 22:26 → 6NMEDSUR 04-24 05:20 → 5NMEDONC 04-24 20:06
PROVIDERS: ADMIT Internal Medicine; ATTEND Internal Medicine
DX: R53.1 Weakness (principal); E87.1 Hypo-osmolality and hyponatremia; E86.1 Hypovolemia; K74.60 Unspecified cirrhosis of liver; F17.200 Nicotine dependence, unspecified, uncomplicated; F10.10 Alcohol abuse, uncomplicated; I95.1 Orthostatic hypotension; D75.89 Other specified diseases of blood and blood-forming organs; Z87.19 Personal history of other diseases of the digestive system; Z82.49 Family history of ischemic heart disease and other diseases of the circulatory system; Z79.899 Other long term (current) drug therapy
CPT/HCPCS: 96372; 99285; 36415; 93005; 97530; 97163; 97166; 82747; 80053; 82607; 83735; 85025; 80320; G0378 ×3; J3411

== ENCOUNTER 2023-04-29 13:59 | Inpatient (IN) | payer OTHER ==
[2023-04-29] MEDS ORDERED: SODIUM CHLORIDE 0.9% 500 ML 500 ML IV STA ×2 (14:45→17:06)
--- NOTE | 2023-04-29 14:46 | ED ---
General Adult HPI - General Source: patient, EMS, RN notes reviewed, old records reviewed Mode of arrival: EMS - History of Present Illness -: hour(s) Associated Symptoms: confusion, malaise, weakness Treatments Prior to Arrival: none <Kirk Greer - Last Filed: 04/29/23 15:03> <James Madrid - Last Filed: 04/29/23 17:44> - General Chief complaint: Alcohol Stated complaint: ETOH Time Seen by Provider: 04/29/23 14:38 - History of Present Illness Initial comments: 57-year-old male presents via EMS with complaints of weakness. States that his legs gave out today. Patient does not know the date but doesn't know its 2022. Knows he is in the hospital but doesn't know which one. States was recently in the hospital and had fluid drawn off his abdomen. Per nursing staff patient was brought in by EMS for EtOH found asleep at [place]. Patient denies any alcohol use today. Does have a history of liver disease, EtOH abuse, hypotension, cirrhosis, persistent weakness, GI bleed and liver disease. (Kirk Greer) Dictation was produced using [employer] dictation software. please excuse any grammatical, word or spelling errors. Chief Complaint: 57-year-old male presents emergency department for generalized weakness History of Present Illness: Is a 57-year-old male past medical history of cirrh osis, homelessness presents to the ER for unclear duration of weakness. Patient's history of cirrhotic liver has had paracentesis recently with removal proximally 4-1/2 L of straw-colored fluid. Since the ER for weakness. Denies any abdominal pain. No fevers. No pain complaints. Patient is homeless. Patient states that baseline his blood pressure is low The ROS documented in this emergency department record has been reviewed and confirmed by me. Those systems with pertinent positive or negative responses have been documented in the HPI. All other systems are other negative and/or no ncontributory. (James Madrid) - Related Data Previous Rx's Medication Instructions Recorded Midodrine [ProAmatine] 10 mg PO AC-TID #90 tab 04/23/23 Allergies Allergy/AdvReac Type Severity Reaction Status Date / Time No Known Allergies Allergy Verified 04/29/23 15:24 Review of Systems ROS Other: All systems not noted in ROS Statement are negative. <Kirk Greer - Last Filed: 04/29/23 15:03> ROS Other: All systems not noted in ROS Statement are negative. <James Madrid - Last Filed: 04/29/23 17:44> ROS Statement: Those systems with pertinent positive or pertinent negative responses have been documented in the HPI. Past Medical History Past Medical History: GI Bleed, Liver Disease Additional Past Medical History / Comment(s): Alcohol abuse, smoker History of Any Multi-Drug Resistant Organisms: None Reported Past Surgical History: No Surgical Hx Reported Additional Past Surgical History / Comment(s): Paracentesis 04/21/2023 Past Anesthesia/Blood Transfusion Reactions: No Reported Reaction Past Psychological History: No Psychological Hx Reported Smoking Status: Current every day smoker Past Alcohol Use History: Daily Past Drug Use History: None Reported - Past Family History Mother Family Medical History: Hypertension <Kirk Greer - Last Filed: 04/29/23 15:03> General Exam Limitations: no limitations General appearance: alert, in no apparent distress Head exam: Present: atraumatic Eye exam: Present: normal appearance. Absent: conjunctival injection, periorbital swelling, periorbital tenderness ENT exam: Present: mucous membranes dry Neck exam: Present: full ROM. Absent: tenderness, meningismus Respiratory exam: Absent: respiratory distress, accessory muscle use Cardiovascular Exam: Present: regular rate GI/Abdominal exam: Present: soft. Absent: distended, tenderness, guarding, rebound, rigid Extremities exam: Present: normal capillary refill, pedal edema. Absent: tenderness, calf tenderness Back exam: Absent: tenderness, CVA tenderness (R), CVA tenderness (L), paraspinal tenderness, vertebral tenderness, rash noted Neurological exam: Present: alert, oriented X3 Psychiatric exam: Present: normal affect, normal mood Skin exam: Present: warm, dry. Absent: cyanosis, diaphoretic, petechiae <Kirk Greer - Last Filed: 04/29/23 15:03> <James Madrid - Last Filed: 04/29/23 17:44> - General Exam Comments Initial Comments: PHYSICAL EXAM: General Impression: Alert and oriented x3, disheveled, smells of urine HEENT: Normocephalic atraumatic, extra-ocular movements intact, pupils equal and reactive to light bilaterally, mucous membranes moist. Cardiovascular: Heart regular rate and rhythm Chest: Able to complete full sentences, no retractions, no tachypnea Abdomen: abdomen soft, non-tender, non-distended, no organomegaly Musculoskeletal: Pulses present and equal in all extremities, no peripheral edema Motor: no focal deficits noted Neurological: CN II-XII grossly intact, no focal motor or sensory deficits noted Skin: Intact with no visualized rashes Psych: Normal affect and mood (James Madrid) Course - Reevaluation(s) Time: 15:03 <Kirk Greer - Last Filed: 04/29/23 15:03> Vital Signs 04/29/23 04/29/23 14:19 16:32 Pulse Rate 82 65 Respiratory 18 18 Rate Blood Pressure 79/45 98/66 O2 Sat by Pulse 96 99 Oximetry - Reevaluation(s) Reevaluation #1: 04/29/23 15:03 Due to hypotension, Dr. Madrid at bedside who resumed care. (Kirk Greer) Medical Decision Making - Lab Data Result diagrams: 04/29/23 15:20 04/29/23 15:20 <James Madrid - Last Filed: 04/29/23 17:44> - Medical Decision Making Was pt. sent in by a medical professional or institution (, PA, OVERHEAD CRANE OPERATOR, urgent care, hospital, or snf...) When possible be specific @ -No Did you speak to anyone other than the patient for history (EMS, parent, family, police, friend...)? What history was obtained from this source @ -No Did you review nursing and triage notes (agree or disagree)? Why? @ -I reviewed and agree with nursing and triage notes Were old charts reviewed (outside hosp., previous admission, EMS record, old EKG, old radiological studies, urgent care reports/EKG's, snf records)? Report findings @ -No old charts were reviewed Differential Diagnosis (chest pain, altered mental status, abdominal pain women, abdominal pain men, vaginal bleeding, musculoskeletal, weakness, fever, dyspnea, syncope, headache, dizziness, GI bleed, back pain, seizure, CVA, palpatations, mental health)? @ -Differential Weakness: Hypoglycemia, shock, sepsis, hyponatremia, anemia, infection, VA, ETOH, adverse medicine reaction, overdose, stroke, this is not meant to be an all-inclusive list. EKG interpreted by me (3pts min.). @ -None done X-rays interpreted by me (1pt min.). @ -Chest x-ray is unremarkable CT interpreted by me (1pt min.). @ -None done U/S interpreted by me (1pt. min.). @ -None done What testing was considered but not performed or refused? (CT, X-rays, U/S, labs)? Why? @ -None What meds were considered but not given or refused? Why? @ -None Did you discuss the management of the patient with other professionals (professionals i.e. , PA, OVERHEAD CRANE OPERATOR, lab, RT, psych nurse, social media community manager, steamer blocker, teacher, commanding officer homicide squad, case assembler)? Give summary @ -Case discussed with Dr. Britton for admission Was smoking cessation discussed for >3mins.? @ -No Was critical care preformed (if so, how long)? @ -No Were there social determinants of health that impacted care today? How? (Homelessness, low income, unemployed, alcoholism, drug addiction, t ransportation, low edu. Level, literacy, decrease access to med. care, correction, rehab)? @ -Alcoholism Was there de-escalation of care discussed even if they declined (Discuss DNR or withdrawal of care, Hospice)? DNR status @ -No What co-morbidities impacted this encounter? (DM, HTN, Smoking, COPD, CAD, Cancer, CVA, ARF, Chemo, Hep., AIDS, mental health diagnosis, sleep apnea, morbid obesity)? @ -None Was patient admitted / discharged? Hospital course, mention meds given and route, prescriptions, significant lab abnormalities, going to OR and other pertinent info. @ -57-year-old male presents emergency department for weakness. Vital signs are stable. Patient generally hypertensive which is possible given his history of liver disease. Patient has any symptoms of significant hypotension. Laboratory evaluation obtained. CBC and coag panel within acceptable limits. Metabolic panel shows hyponatremia 121. Initial glucose of 39. Patient given glucose supplementation became hypoglycemic again. Metabolic panel is within acceptable limits for serum alcohol is negative. Given patient's degree of metabolic derangement he'll be admitted. Undiagnosed new problem with uncertain prognosis? @ -No Drug Therapy requiring intensive monitoring for toxicity (Heparin, Nitro, Insulin, Cardizem)? @ -No Were any procedures done? @ -No Diagnosis/symptom? Acute, or Chronic, or Acute on Chronic? Uncomplicated (without systemic symptoms) or Complicated (systemic symptoms)? @ -1. Hyponatremia, 2. Hypoglycemia Side effects of treatment? @ -No Exacerbation, Progression, or Severe Exacerbation? @ -No Poses a threat to life or bodily function? How? (Chest pain, USA, VA, pneumonia, PE, COPD, DKA, ARF, appy, cholecystitis, CVA, Diverticulitis, Homicidal, Suicidal, threat to staff... and all critical care pts) @ -yes (James Madrid) - Lab Data Lab Results 04/29/23 04/29/23 04/29/23 Range/Units 15:20 15:20 15:20 WBC 8.9 (3.8-10.6) k/uL RBC 3.03 L (4.30-5.90) m/uL Hgb 11.0 L (13.0-17.5) gm/dL Hct 32.7 L (39.0-53.0) % MCV 107.9 H (80.0-100.0) fL MCH 36.2 H (25.0-35.0) pg MCHC 33.5 (31.0-37.0) g/dL RDW 15.5 (11.5-15.5) % Plt Count 173 (150-450) k/uL MPV 10.8 Neutrophils % (Manual) 80 % Lymphocytes % (Manual) 16 % Monocytes % (Manual) 4 % Neutrophils # (Manual) 7.12 (1.3-7.7) k/uL Lymphocytes # (Manual) 1.42 (1.0-4.8) k/uL Monocytes # (Manual) 0.36 (0-1.0) k/uL Nucleated RBCs 0 (0-0) /100 WBC Manual Slide Review Performed Large Platelets Present Polychromasia Present Macrocytosis Marked A PT 12.8 H (9.0-12.0) sec INR 1.3 H (<1.2) APTT 26.1 (22.0-30.0) sec Sodium 121 L (137-145) mmol/L Potassium 4.1 (3.5-5.1) mmol/L Chloride 88 L (98-107) mmol/L Carbon Dioxide 18 L (22-30) mmol/L Anion Gap 15 mmol/L BUN 11 (9-20) mg/dL Creatinine 0.68 (0.66-1.25) mg/dL Est GFR (CKD-EPI)AfAm >90 (>60 ml/min/1.73 sqM) Est GFR (CKD-EPI)NonAf >90 (>60 ml/min/1.73 sqM) Glucose 39 L* (74-99) mg/dL POC Glucose (mg/dL) (70-110) mg/dL POC Glu Fur Sewer ID Plasma Lactic Acid Newton (0.7-2.0) mmol/L Calcium 7.9 L (8.4-10.2) mg/dL Magnesium 2.0 (1.6-2.3) mg/dL Total Bilirubin 1.2 (0.2-1.3) mg/dL AST 198 H (17-59) U/L ALT 38 (4-49) U/L Alkaline Phosphatase 227 H (38-126) U/L Troponin I (0.000-0.034) ng/mL NT-Pro-B Natriuret Pep 2410 pg/mL Total Protein 5.3 L (6.3-8.2) g/dL Albumin 2.6 L (3.5-5.0) g/dL Serum Alcohol <10 mg/dL 04/29/23 04/29/23 04/29/23 Range/Units 15:20 15:20 16:11 WBC (3.8-10.6) k/uL RBC (4.30-5.90) m/uL Hgb (13.0-17.5) gm/dL Hct (39.0-53.0) % MCV (80.0-100.0) fL MCH (25.0-35.0) pg MCHC (31.0-37.0) g/dL RDW (11.5-15.5) % Plt Count (150-450) k/uL MPV Neutrophils % (Manual) % Lymphocytes % (Manual) % Monocytes % (Manual) % Neutrophils # (Manual) (1.3-7.7) k/uL Lymphocytes # (Manual) (1.0-4.8) k/uL Monocytes # (Manual) (0-1.0) k/uL Nucleated RBCs (0-0) /100 WBC Manual Slide Review Large Platelets Polychromasia Macrocytosis PT (9.0-12.0) sec INR (<1.2) APTT (22.0-30.0) sec Sodium (137-145) mmol/L Potassium (3.5-5.1) mmol/L Chloride (98-107) mmol/L Carbon Dioxide (22-30) mmol/L Anion Gap mmol/L BUN (9-20) mg/dL Creatinine (0.66-1.25) mg/dL Est GFR (CKD-EPI)AfAm (>60 ml/min/1.73 sqM) Est GFR (CKD-EPI)NonAf (>60 ml/min/1.73 sqM) Glucose (74-99) mg/dL POC Glucose (mg/dL) 102 (70-110) mg/dL POC Glu Fur Sewer Kit Garrett Plasma Lactic Acid Newton 1.2 (0.7-2.0) mmol/L Calcium (8.4-10.2) mg/dL Magnesium (1.6-2.3) mg/dL Total Bilirubin (0.2-1.3) mg/dL AST (17-59) U/L ALT (4-49) U/L Alkaline Phosphatase (38-126) U/L Troponin I <0.012 (0.000-0.034) ng/mL NT-Pro-B Natriuret Pep pg/mL Total Protein (6.3-8.2) g/dL Albumin (3.5-5.0) g/dL Serum Alcohol mg/dL 04/29/23 04/29/23 Range/Units 16:39 17:32 WBC (3.8-10.6) k/uL RBC (4.30-5.90) m/uL Hgb (13.0-17.5) gm/dL Hct (39.0-53.0) % MCV (80.0-100.0) fL MCH (25.0-35.0) pg MCHC (31.0-37.0) g/dL RDW (11.5-15.5) % Plt Count (150-450) k/uL MPV Neutrophils % (Manual) % Lymphocytes % (Manual) % Monocytes % (Manual) % Neutrophils # (Manual) (1.3-7.7) k/uL Lymphocytes # (Manual) (1.0-4.8) k/uL Monocytes # (Manual) (0-1.0) k/uL Nucleated RBCs (0-0) /100 WBC Manual Slide Review Large Platelets Polychromasia Macrocytosis PT (9.0-12.0) sec INR (<1.2) APTT (22.0-30.0) sec Sodium (137-145) mmol/L Potassium (3.5-5.1) mmol/L Chloride (98-107) mmol/L Carbon Dioxide (22-30) mmol/L Anion Gap mmol/L BUN (9-20) mg/dL Creatinine (0.66-1.25) mg/dL Est GFR (CKD-EPI)AfAm (>60 ml/min/1.73 sqM) Est GFR (CKD-EPI)NonAf (>60 ml/min/1.73 sqM) Glucose (74-99) mg/dL POC Glucose (mg/dL) 116 H 87 (70-110) mg/dL POC Glu Fur Sewer ID Kit Vargas Joshua Plasma Lactic Acid Newton (0.7-2.0) mmol/L Calcium (8.4-10.2) mg/dL Magnesium (1.6-2.3) mg/dL Total Bilirubin (0.2-1.3) mg/dL AST (17-59) U/L ALT (4-49) U/L Alkaline Phosphatase (38-126) U/L Troponin I (0.000-0.034) ng/mL NT-Pro-B Natriuret Pep pg/mL Total Protein (6.3-8.2) g/dL Albumin (3.5-5.0) g/dL Serum Alcohol mg/dL Disposition <Kirk Greer - Last Filed: 04/29/23 15:03> Decision Time: 17:00 <James Madrid - Last Filed: 04/29/23 17:44> Clinical Impression: Hypoglycemia Disposition: ADMITTED IP TO THIS [facility] Condition: Fair Referrals: None,Stated [Primary Care Provider] - 1-2 days
[2023-04-29 15:52] LABS: ALT 38 U/L (4-49); AST 198 U/L (17-59); African American GFR (CKD) >90 (>60 ml/min/1.73 sqM); Albumin 2.6 g/dL (3.5-5.0); Alcohol <10 mg/dL; Alkaline Phosphatase 227 U/L (38-126); Anion Gap 15 mmol/L; Blood Urea Nitrogen 11 mg/dL (9-20); Calcium 7.9 mg/dL (8.4-10.2); Carbon Dioxide 18 mmol/L (22-30); Chloride 88 mmol/L (98-107); Non-African American GFR(CKD) >90 (>60 ml/min/1.73 sqM); Potassium 4.1 mmol/L (3.5-5.1); Sodium 121 mmol/L (137-145); Total Bilirubin 1.2 mg/dL (0.2-1.3); Total Protein 5.3 g/dL (6.3-8.2)
[2023-04-29 15:55] LABS: INR 1.3 (<1.2); Partial Thromboplastin Time 26.1 sec (22.0-30.0); Prothrombin Time 12.8 sec (9.0-12.0)
[2023-04-29 15:57] LABS: HCT 32.7 % (39.0-53.0); MCH 36.2 pg (25.0-35.0); MCHC 33.5 g/dL (31.0-37.0); MCV 107.9 fL (80.0-100.0); Macrocytosis Marked; Mean Platelet Volume 10.8; Platelet Count 173 k/uL (150-450); RBC 3.03 m/uL (4.30-5.90); RDW 15.5 % (11.5-15.5); WBC 8.9 k/uL (3.8-10.6)
[2023-04-29 15:58] LABS: Glucose 39 mg/dL (74-99)
[2023-04-29 16:00] LABS: NT-Pro-B-Type Natriuretic Pept 2410 pg/mL
[2023-04-29 16:13] LABS: Glucose,Whole Blood 102 mg/dL (70-110)
[2023-04-29 16:29] LABS: Large Platelets Present; Lymphocytes # (M) 1.42 k/uL (1.0-4.8); Monocytes # (M) 0.36 k/uL (0-1.0); Neutrophils # (M) 7.12 k/uL (1.3-7.7); Neutrophils % (M) 80 %; Nucleated Red Blood Cells 0 /100 WBC (0-0); Polychromasia Present; Total Cells Counted 100
[2023-04-29 16:40] LABS: Glucose,Whole Blood 116 mg/dL (70-110)
[2023-04-29 17:33] LABS: Glucose,Whole Blood 87 mg/dL (70-110)
[2023-04-29] MEDS ORDERED: NALOXONE 0.4 MG/ML 1 ML VIAL IV PRN (17:39)
[2023-04-29] MEDS ORDERED: DEXTROSE 10% IN WATER 1,000 ML with SODIUM CHLORIDE 2.5MEQ/ML VIAL 153.8 MEQ IV SCH (17:45)
[2023-04-29] MEDS ORDERED: DEXTROSE 10% IN WATER 1,000 ML with SODIUM CHLORIDE 4MEQ/ML VIAL 153.8 MEQ IV SCH (17:45)
[2023-04-29] MEDS ORDERED: SODIUM CHLORIDE 0.9% 1,000 ML IV SCH (17:45)
--- NOTE | 2023-04-29 17:59 | XR ---
EXAMINATION TYPE: XR chest 2V DATE OF EXAM: 04/29/2023 5:21 PM COMPARISON: None TECHNIQUE: XR chest 2V Frontal and lateral views of the chest. CLINICAL INDICATION:Male, 57 years old with history of weakness; FINDINGS: Lungs/Pleura: There is no evidence of pleural effusion, focal consolidation, or pneumothorax. Pulmonary vascularity: Unremarkable. Heart/mediastinum: Cardiomediastinal silhouette is unremarkable. Musculoskeletal: No acute osseous pathology. IMPRESSION: No acute cardiopulmonary disease/process.
[2023-04-29] MEDS ORDERED: DEXTROSE 50% SYRINGE 50 ML IVP PRN (18:21)
--- NOTE | 2023-04-29 18:43 | P.HPIM ---
History of Present Illness H&P Date: 04/29/23 History of Presenting Illness: Patient is a very pleasant 57-year-old male with a past medical history of alcoholic liver cirrhosis, continued alcohol use reporting drinking approximately 3 beers every other day, and nicotine dependence. Patient reports last paracentesis was 04/21/23 with removal of 4.5 L of fluid and last alcoholic beverage being 04/28/23. Patient presented to the emergency department via EMS secondary to reports of weakness and recurrent falls. Patient was initially thought to have been intoxicated however patient was found to be hypoglycemic with blood glucose of 39 and hypotensive with blood pressure 79/45. Patient reports that he takes midodrine 10 mg 3 times daily for treatment of his chronic hypotension resulting from advanced liver cirrhosis, but reports he has not taken this medication in a couple of days. Patient did report that he felt weak and dizzy, but denies having any falls or loss of consciousness and denies hitting his head. No obvious injury noted at this time. Patient underwent full evaluation in the emergency department. Vital signs reviewed. Blood pressure 79/45, heart rate 82, respiratory rate 18, and SpO2 of 96% on room air. Labs completed and reviewed. CBC showing macrocytic hyperchromic anemia with hemoglobin of 11.0. Coagulation profile revealing elevated PT of 12.8 and INR 1.3. BMP revealing acute on chronic hyponatremia with sodium 121, chloride 88, bicarbonate 18, and severe hypoglycemia with glucose of 39. Liver profile revealing elevated AST of 198 and alkaline phosphatase of 227 and albumin of 2.6. Blood alcohol level was less than 10. A chest x-ray was completed negat ludmila for acute cardiopulmonary process.. Discussed patient's presentation, complaints, laboratory analysis, and imaging results in detail with the ED physician. Patient admitted under the services for symptomatic hypotension, acute on chronic hyponatremia and hypoglycemia. Upon evaluation at bedside. Patient initially sleeping, awoken via tactile stimuli. Once awoke and patient alert and oriented to person, place, time, and situation. Patient reports he has not taken his midodrine since at least yesterday morning. Patient reports he could tell his pressures were low because he was weak upon standing up. Patient reports last time eating was yesterday morning and states last drinking alcohol yesterday afternoon. Patient denies any other drug use. He does report smoking cigarettes. He denies any falls or injuries. He denies having any headache, lightheadedness, dizziness, chest pa in, palpitations, shortness of breath, abdominal pain, nausea, vomiting, or experiencing any focal numbness/weakness/tingling in his extremities. Patient reports lower extremity edema is chronic and unchanged and confirms last paracentesis being approximately one week ago. MELD na+ score 20 points showing a 94.7% estimated 90 day survival. Review of systems: Pertinent positives and negatives as discussed in HPI, a complete review of systems was performed and all other systems are negative. Physical exam: Vital signs reviewed and stable. General: Nontoxic, no distress and appears stated age. Derm: Skin warm and dry, normal coloration for ethnicity. Patient with multiple bruises and scabs covering upper extremities. Head: Atraumatic, normocephalic and symmetric. Eyes: EOMs intact, no lid lag, and anicteric sclera Mouth: no lip lesions, mucus membranes moist Cardiovascular: regular rate and rhythm with normal S1S2, systolic murmur, positive posterior tibial pulses bilaterally, and cap refill < 2 seconds. Lungs: Respirations even, regular, and unlabored on room air. Lungs CTA bilaterally, no rhonchi, no rales, no wheezing, and no accessory muscle usage. Abdominal: Cirrhotic abdomen, nontender to palpation, no guarding, no appreciable organomegaly Ext: ROM intact. No gross muscle atrophy, 3+ pitting bilateral lower extremity edema, no contractures Neuro: Speech clear, face symmetrical and CN II-XII grossly intact with no noted focal neuro deficits Psych: Alert and oriented to person, place, time, and situation. Appropriate and pleasant affect. Assessment and Plan of Care: Hypoglycemia Acute on chronic hyponatremia Symptomatic hypotension Alcoholic liver cirrhosis, decompensated with continued alcohol use Nicotine dependence - Vital signs reviewed. Blood pressure 79/45, heart rate 82, respiratory rate 18, and SpO2 of 96% on room air. -Labs completed and reviewed. CBC showing macrocytic hyperchromic anemia with hemoglobin of 11.0. Coagulation profile revealing elevated PT of 12.8 and INR 1.3. BMP revealing acute on chronic hyponatremia with sodium 121, chloride 88, bicarbonate 18, and severe hypoglycemia with glucose of 39. Liver profile revealing elevated AST of 198 and alkaline phosphatase of 227 and albumin of 2.6. Blood alcohol level was less than 10. -A chest x-ray was completed negative for acute cardiopulmonary process.. -Discussed patient's presentation, complaints, laboratory analysis, and imaging results in detail with the ED physician. -Patient admitted under the services for symptomatic hypotension, acute on chronic hyponatremia and hypoglycemia. -Consult placed to nephrology for hyponatremia. -We will hold off all fluids at this time pending repeat sodium level as patient received 1 L bolus of 0.9% normal saline and was started on a D10W infusion at 120 mL's per hour in the ED prior to admission. -Order placed for hourly glucose checks and patient to be encouraged oral intake -Order placed for a half an amp of D50 or 25 mL for glucose less than 70 and 1 amp or 50 mL of D50 for glucose less than 50. -Seizure precautions and fall precautions in place. -Order placed for orthostatic vitals. -Order placed for patient to resume midodrine 10 mg 3 times daily starting now for treatment of hypotension. -Repeat stat sodium now and every 6 hours. -MELD na+ score 20 points showing a 94.7% estimated 90 day survival. -Monitoring of CIWA scores to continue and patient to be medicated with Ativan 0.5 mg every 4 hours as needed for CIWA score of 4-5, Ativan 1 mg every 4 hours for CIWA score of 6-7, Ativan 2 mg every 3 hours CIWA score of 8-9, and Ativan 2 mg every 2 hours forr CIWA score of 10 or greater. -Nicotine patch, patient encouraged to stop smoking. The patient is admitted with an anticipated greater than 2 midnight stay for evaluation of hypoglycemia, acute on chronic hyponatremia, and symptomatic hypotension CODE STATUS: Full code DVT prophylaxis: Lovenox Discussed with: Patient, RN, and ED physician Anticipated discharge date: Clinical course to determine Anticipated discharge place: Home Patient was seen independently by Nurse Practitioner. This document was prepared using [employer] dictation software. Please allow for errors in exercise equipment repair technician while rare they do occur. Von Samuel NP rendered care for this patient independently, reviewed the findings and plan as documented in the note above. I did not physically speak with or examine the patient on this date. Past Medical History Past Medical History: GI Bleed, Liver Disease Additional Past Medical History / Comment(s): Alcohol abuse, smoker History of Any Multi-Drug Resistant Organisms: None Reported Past Surgical History: No Surgical Hx Reported Additional Past Surgical History / Comment(s): Paracentesis 04/21/2023 Past Anesthesia/Blood Transfusion Reactions: No Reported Reaction Past Psychological History: No Psychological Hx Reported Smoking Status: Current every day smoker Past Alcohol Use History: Daily Past Drug Use History: None Reported - Past Family History Mother Family Medical History: Hypertension Medications and Allergies Home Medications Medication Instructions Recorded Confirmed Type Midodrine [ProAmatine] 10 mg PO AC-TID #90 tab 04/23/23 04/29/23 Rx Allergies Allergy/AdvReac Type Severity Reaction Status Date / Time No Known Allergies Allergy Verified 04/29/23 15:24 Physical Exam Vitals: Vital Signs Pulse Resp BP Pulse Ox 04/29/23 18:18 76 18 94/58 100 04/29/23 16:32 65 18 98/66 99 04/29/23 14:19 82 18 79/45 96 Intake and Output 04/29/23 04/29/23 04/29/23 06:59 14:59 22:59 Other: Weight 68.039 kg Results CBC & Chem 7: 05/02/23 07:05 05/02/23 07:05 Labs: Abnormal Lab Results - Last 24 Hours (Table) 04/29/23 04/29/23 04/29/23 Range/Units 15:20 15:20 15:20 RBC 3.03 L (4.30-5.90) m/uL Hgb 11.0 L (13.0-17.5) gm/dL Hct 32.7 L (39.0-53.0) % MCV 107.9 H (80.0-100.0) fL MCH 36.2 H (25.0-35.0) pg Macrocytosis Marked A PT 12.8 H (9.0-12.0) sec INR 1.3 H (<1.2) Sodium 121 L (137-145) mmol/L Chloride 88 L (98-107) mmol/L Carbon Dioxide 18 L (22-30) mmol/L Glucose 39 L* (74-99) mg/dL POC Glucose (mg/dL) (70-110) mg/dL Calcium 7.9 L (8.4-10.2) mg/dL AST 198 H (17-59) U/L Alkaline Phosphatase 227 H (38-126) U/L Total Protein 5.3 L (6.3-8.2) g/dL Albumin 2.6 L (3.5-5.0) g/dL 04/29/23 Range/Units 16:39 RBC (4.30-5.90) m/uL Hgb (13.0-17.5) gm/dL Hct (39.0-53.0) % MCV (80.0-100.0) fL MCH (25.0-35.0) pg Macrocytosis PT (9.0-12.0) sec INR (<1.2) Sodium (137-145) mmol/L Chloride (98-107) mmol/L Carbon Dioxide (22-30) mmol/L Glucose (74-99) mg/dL POC Glucose (mg/dL) 116 H (70-110) mg/dL Calcium (8.4-10.2) mg/dL AST (17-59) U/L Alkaline Phosphatase (38-126) U/L Total Protein (6.3-8.2) g/dL Albumin (3.5-5.0) g/dL
[2023-04-29] MEDS ORDERED: LORazepam 1 MG TAB PO PRN ×4 (19:08)
[2023-04-29] MEDS ORDERED: THIAMINE 100 MG/ML 2 ML VIAL IM STA (19:08)
[2023-04-29] MEDS ORDERED: LORazepam 0.5 MG TAB PO PRN (19:08)
[2023-04-29] MEDS: NICOTINE 21MG/24HR PATCH TRANSDERM SCH (21:04)
[2023-04-29] MEDS: MIDODRINE 5 MG TAB PO SCH (21:04)
[2023-04-29 21:34] LABS: Glucose,Whole Blood 52 mg/dL (70-110)
[2023-04-29 21:43] LABS: African American GFR (CKD) >90 (>60 ml/min/1.73 sqM); Anion Gap 14 mmol/L; Blood Urea Nitrogen 11 mg/dL (9-20); Calcium 7.7 mg/dL (8.4-10.2); Carbon Dioxide 17 mmol/L (22-30); Chloride 91 mmol/L (98-107); Non-African American GFR(CKD) >90 (>60 ml/min/1.73 sqM); Potassium 4.1 mmol/L (3.5-5.1); Sodium 122 mmol/L (137-145)
[2023-04-29 22:17] LABS: Glucose 47 mg/dL (74-99)
[2023-04-29 22:20] LABS: Glucose,Whole Blood 57 mg/dL (70-110)
[2023-04-29 22:45] LABS: Glucose,Whole Blood 134 mg/dL (70-110)
[2023-04-29] MEDS: DEXTROSE 5%-0.9% NACL 1,000 ML IV SCH (23:49)
[2023-04-29 23:52] LABS: Glucose,Whole Blood 90 mg/dL (70-110)
[2023-04-30 00:43] LABS: Glucose,Whole Blood 65 mg/dL (70-110)
[2023-04-30] MEDS: DEXTROSE 50% SYRINGE 50 ML IVP PRN ×2 (00:54→03:33)
[2023-04-30 01:27] LABS: Glucose,Whole Blood 133 mg/dL (70-110)
[2023-04-30 02:36] LABS: Glucose,Whole Blood 86 mg/dL (70-110)
[2023-04-30 03:23] LABS: Glucose,Whole Blood 73 mg/dL (70-110)
[2023-04-30 04:16] LABS: African American GFR (CKD) >90 (>60 ml/min/1.73 sqM); Anion Gap 12 mmol/L; Blood Urea Nitrogen 11 mg/dL (9-20); Calcium 7.8 mg/dL (8.4-10.2); Carbon Dioxide 18 mmol/L (22-30); Chloride 92 mmol/L (98-107); Glucose 65 mg/dL (74-99); Non-African American GFR(CKD) >90 (>60 ml/min/1.73 sqM); Potassium 3.5 mmol/L (3.5-5.1); Sodium 122 mmol/L (137-145)
[2023-04-30 04:27] LABS: Glucose,Whole Blood 142 mg/dL (70-110)
[2023-04-30 06:59] LABS: Glucose,Whole Blood 82 mg/dL (70-110)
--- NOTE | 2023-04-30 07:10 | CT ---
EXAMINATION TYPE: CT brain wo con DATE OF EXAM: 04/30/2023 COMPARISON: None HISTORY: 57-year-old male with pain after fall TECHNIQUE: Examination was done in axial plane without intravenous contrast. Coronal and sagittal r econstructions performed. CT DLP: 1142.4 mGycm Automated exposure control for dose reduction was used. FINDINGS: There is no evidence of acute intracranial hemorrhage, acute ischemic changes, mass, mass-effect, or extra-axial fluid collection. There is no effacement of cerebral sulci or basal subarachnoid cister ns. There is no hydrocephalus. There is no midline shift. De Leon-white matter distinction is preserv ed. Rightward nasal septal deviation. There may be trace mucosal thickening anterior ethmoid air cells on the right. Mastoid air cells are well pneumatized. IMPRESSION: No acute intracranial abnormality seen.
--- NOTE | 2023-04-30 07:17 | XR ---
EXAMINATION TYPE: XR shoulder complete BILAT DATE OF EXAM: 04/30/2023 COMPARISON: NONE HISTORY: 57-year-old male fall with pain TECHNIQUE: 3 views each side, best possible images noted by the tech FINDINGS: There is moderate to severe degenerative change of the bilateral AC joints without significant joint space narrowing and capsular hypertrophy contributing to overlying protuberance of the skin surface. Anterior spurring particularly on the right. At the left base of the neck near the thoracic inlet lev el, there is a 2.7 cm punctate metallic focus of foreign body material. Mild spurring at the right greater tuberosity. No acute fracture, subluxation, or dislocation seen. IMPRESSION: 1. 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 2. Some bony spurring at the right greater tuberosity suggesting underlying chronic rotator cuff tend inopathy. 3. No acute osseous abnormality seen on either side. 4. A 3 mm neema of metal density at the left base of the neck near the thoracic inlet level. This cou ld represent a retained foreign body versus external artifact. Clinically correlate.
[2023-04-30 07:19] LABS: African American GFR (CKD) >90 (>60 ml/min/1.73 sqM); Anion Gap 10 mmol/L; Blood Urea Nitrogen 10 mg/dL (9-20); Calcium 7.7 mg/dL (8.4-10.2); Carbon Dioxide 21 mmol/L (22-30); Chloride 93 mmol/L (98-107); Glucose 61 mg/dL (74-99); Magnesium 1.9 mg/dL (1.6-2.3); Non-African American GFR(CKD) >90 (>60 ml/min/1.73 sqM); Potassium 3.5 mmol/L (3.5-5.1); Sodium 124 mmol/L (137-145)
[2023-04-30 08:01] LABS: Glucose,Whole Blood 90 mg/dL (70-110)
[2023-04-30] MEDS: FOLIC ACID 1 MG TAB PO SCH (08:09)
[2023-04-30] MEDS: MULTIVITAMINS, THERA 1 EACH TAB PO SCH (08:09)
[2023-04-30] MEDS: ENOXAPARIN 40 MG/0.4 ML SYRINGE SQ SCH (08:09)
[2023-04-30] MEDS: MIDODRINE 5 MG TAB PO SCH ×3 (08:09→17:52)
[2023-04-30] MEDS: THIAMINE 100 MG TAB PO SCH (08:09)
[2023-04-30] MEDS: NICOTINE 21MG/24HR PATCH TRANSDERM SCH (08:09)
[2023-04-30 08:58] LABS: Glucose,Whole Blood 115 mg/dL (70-110)
[2023-04-30 09:37] LABS: HCT 28.4 % (39.6-50.0); MCH 35.5 pg (27.0-32.0); MCHC 35.2 d/dL (32.0-37.0); MCV 100.7 FL (80.0-97.0); Mean Platelet Volume 11.9 FL (9.5-12.2); NRBC Per 100 WBC 0 X 10*3/uL (0.00-0.01); Platelet Count 164 X 10*3/uL (140-440); RBC 2.82 X 10*6/uL (4.40-5.60); RDW 14.6 % (11.5-14.5); WBC 6.76 X 10*3/uL (4.50-10.00)
[2023-04-30 09:47] LABS: Glucose,Whole Blood 140 mg/dL (70-110)
--- NOTE | 2023-04-30 10:29 | P.PN ---
Subjective Progress Note Date: 04/30/23 Hospital course: Patient is a very pleasant 57-year-old male with a past medical history of alcoholic liver cirrhosis, continued alcohol use reporting drinking randal roximately 3 beers every other day, and nicotine dependence. Patient reports last paracentesis was 04/21/23 with removal of 4.5 L of fluid and last alcoholic beverage being 04/28/23. Patient presented to the emergency department via EMS secondary to reports of weakness and recurrent falls. Patient was initially thought to have been intoxicated however patient was found to be hypoglycemic with blood glucose of 39 and hypotensive with blood pressure 79/45. Patient reports that he takes midodrine 10 mg 3 times daily for treatment of his chronic hypotension resulting from advanced liver cirrhosis, but reports he has not taken this medication in a couple of days. Patient did report that he felt weak and dizzy, but denies having any falls or loss of consciousness and denies hitting his head. No obvious injury noted at this time. Patient underwent full evaluation in the emergency department. Vital signs reviewed. Blood pressure 79/45, heart rate 82, respiratory rate 18, and SpO2 of 96% on room air. Labs completed and reviewed. CBC showing macrocytic hyperchromic anemia with hemoglobin of 11.0. Coagulation profile revealing elevated PT of 12.8 and INR 1.3. BMP revealing acute on chronic hyponatremia with sodium 121, chloride 88, bicarbonate 18, and severe hypoglycemia with glucose of 39. Liver profile revealing elevated AST of 198 and alkaline phosphatase of 227 and albumin of 2.6. Blood alcohol level was less than 10. A chest x-ray was completed negative for acute cardiopulmonary process. Patient admitted under the services for symptomatic hypotension, acute on chronic hyponatremia and hypoglycemia. Physical exam: Patient seen and fully evaluated at bedside this morning. Per nursing report patient had an unwitnessed fall earlier in the morning after reportedly climbing out of bottom of the bed. On-call physician was notified and patient underwent CT brain which was negative for acute intracranial process and x-ray left shoulder revealing moderate to severe bilateral before meals joint osteoarthritis and bony spurring at the right greater tuberosity suggesting underlying chronic rotator cuff tendinopathy and was negative for acute osseous abnormality. Vital signs reviewed and stable. General: Nontoxic, no distress and appears stated age. Patient with bruising/ecchymosis surrounding the left orbital region and side of forehead Derm: Skin warm and dry, normal coloration for ethnicity. Patient with multiple bruises and scabs covering upper extremities. Patient with skin tear on bilateral arms Head: Atraumatic, normocephalic and symmetric. Eyes: EOMs intact, no lid lag, and anicteric sclera Mouth: no lip lesions, mucus membranes moist Cardiovascular: regular rate and rhythm with normal S1S2, systolic murmur, positive posterior tibial pulses bilaterally, and cap refill < 2 seconds. Lungs: Respirations even, regular, and unlabored on room air. Lungs CTA bilaterally, no rhonchi, no rales, no wheezing, and no accessory muscle usage. Abdominal: Cirrhotic abdomen, nontender to palpation, no guarding, no appreciable organomegaly Ext: ROM intact. No gross muscle atrophy, 3+ pitting bilateral lower extremity edema, no contractures Neuro: Speech clear, face symmetrical and CN II-XII grossly intact with no noted focal neuro deficits Psych: Alert and oriented to person, place, time, and situation. Appropriate and pleasant affect. Assessment and Plan of Care: Hypoglycemia Acute on chronic hyponatremia, believed to be secondary to decompensated c irrhosis with ascites Symptomatic hypotension Alcoholic liver cirrhosis, decompensated with continued alcohol use Nicotine dependence -Patient continued with recurrent episodes of hypoglycemia overnight and currently morning glucose 61. Patient was started on D5 0.9% infusion at 50 mL per hour after repeat sodium resulted at 122 and currently sodium level increasing to 124. -Patient also with persistent hypotension with morning blood pressure 77/51. -Nephrology following secondary to acute on chronic hyponatremia and discussed plan of care with Dr. Gar and he stated he is placing order for TSH, cortisol level, and urine sodium and osmolality. -Continue with D5 0.9% normal saline infusion at 50 mL's per hour. Repeat sodium levels every 12 hours to monitor for improvement. -Continue hourly glucose checks and patient to be encouraged oral intake -Order placed for protein supplements 3 times daily between meals. -Continue with half an amp of D50 or 25 mL for glucose less than 70 and 1 amp or 50 mL of D50 for glucose less than 50. -Seizure precautions and fall precautions to continue. -Continue midodrine 10 mg 3 times daily starting now for treatment of hypotens ion. -MELD na+ score 20 points showing a 94.7% estimated 90 day survival. -Continue monitoring CIWA scores to continue and patient to be medicated with Ativan 0.5 mg every 4 hours as needed for CIWA score of 4-5, Ativan 1 mg every 4 hours for CIWA score of 6-7, Ativan 2 mg every 3 hours CIWA score of 8-9, and Ativan 2 mg every 2 hours forr CIWA score of 10 or greater. -Nicotine patch 21 mg daily, patient encouraged to stop smoking. Reported Unwitnessed Fall -Fall precautions to remain in place. 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 CODE STATUS: Full code DVT prophylaxis: Lovenox Discussed with: Patient, RN, and sales department manager Anticipated discharge date: Clinical course to determine Anticipated discharge place: Home Patient was seen independently by Nurse Practitioner. This document was prepared using [employer] dictation software. Please allow for errors in global chief creative officer while rare they do occur. Von Samuel NP rendered care for this patient independently, reviewed the findings and plan as documented in the note above. I did not physically speak with or examine the patient on this date. Objective - Vital Signs Vital signs: Vital Signs Temp 97.6 F 04/30/23 07:25 Pulse 95 04/30/23 07:25 Resp 18 04/30/23 07:25 BP 90/61 04/30/23 07:25 Pulse Ox 93 L 04/30/23 07:25 FiO2 Intake & Output 04/29/23 04/30/23 04/30/23 18:59 06:59 18:59 Weight 68.039 kg Other: # Voids 0 - Labs CBC & Chem 7: 05/02/23 07:05 05/02/23 07:05 Labs: Abnormal Lab Results - Last 24 Hours (Table) 04/29/23 04/29/23 04/29/23 Range/Units 15:20 15:20 15:20 RBC 3.03 L (4.30-5.90) m/uL Hgb 11.0 L (13.0-17.5) gm/dL Hct 32.7 L (39.0-53.0) % MCV 107.9 H (80.0-100.0) fL MCH 36.2 H (25.0-35.0) pg Macrocytosis Marked A PT 12.8 H (9.0-12.0) sec INR 1.3 H (<1.2) Sodium 121 L (137-145) mmol/L Chloride 88 L (98-107) mmol/L Carbon Dioxide 18 L (22-30) mmol/L Creatinine (0.66-1.25) mg/dL Glucose 39 L* (74-99) mg/dL POC Glucose (mg/dL) (70-110) mg/dL Calcium 7.9 L (8.4-10.2) mg/dL AST 198 H (17-59) U/L Alkaline Phosphatase 227 H (38-126) U/L Total Protein 5.3 L (6.3-8.2) g/dL Albumin 2.6 L (3.5-5.0) g/dL 04/29/23 04/29/23 04/29/23 Range/Units 16:39 21:10 21:32 RBC (4.30-5.90) m/uL Hgb (13.0-17.5) gm/dL Hct (39.0-53.0) % MCV (80.0-100.0) fL MCH (25.0-35.0) pg Macrocytosis PT (9.0-12.0) sec INR (<1.2) Sodium 122 L (137-145) mmol/L Chloride 91 L (98-107) mmol/L Carbon Dioxide 17 L (22-30) mmol/L Creatinine (0.66-1.25) mg/dL Glucose 47 L* (74-99) mg/dL POC Glucose (mg/dL) 116 H 52 L (70-110) mg/dL Calcium 7.7 L (8.4-10.2) mg/dL AST (17-59) U/L Alkaline Phosphatase (38-126) U/L Total Protein (6.3-8.2) g/dL Albumin (3.5-5.0) g/dL 04/29/23 04/29/23 04/30/23 Range/Units 22:19 22:43 00:38 RBC (4.30-5.90) m/uL Hgb (13.0-17.5) gm/dL Hct (39.0-53.0) % MCV (80.0-100.0) fL MCH (25.0-35.0) pg Macrocytosis PT (9.0-12.0) sec INR (<1.2) Sodium 122 L (137-145) mmol/L Chloride 92 L (98-107) mmol/L Carbon Dioxide 18 L (22-30) mmol/L Creatinine (0.66-1.25) mg/dL Glucose 65 L (74-99) mg/dL POC Glucose (mg/dL) 57 L 134 H (70-110) mg/dL Calcium 7.8 L (8.4-10.2) mg/dL AST (17-59) U/L Alkaline Phosphatase (38-126) U/L Total Protein (6.3-8.2) g/dL Albumin (3.5-5.0) g/dL 04/30/23 04/30/23 04/30/23 Range/Units 00:41 01:23 04:25 RBC (4.30-5.90) m/uL Hgb (13.0-17.5) gm/dL Hct (39.0-53.0) % MCV (80.0-100.0) fL MCH (25.0-35.0) pg Macrocytosis PT (9.0-12.0) sec INR (<1.2) Sodium (137-145) mmol/L Chloride (98-107) mmol/L Carbon Dioxide (22-30) mmol/L Creatinine (0.66-1.25) mg/dL Glucose (74-99) mg/dL POC Glucose (mg/dL) 65 L 133 H 142 H (70-110) mg/dL Calcium (8.4-10.2) mg/dL AST (17-59) U/L Alkaline Phosphatase (38-126) U/L Total Protein (6.3-8.2) g/dL Albumin (3.5-5.0) g/dL 04/30/23 04/30/23 Range/Units 06:40 08:57 RBC (4.30-5.90) m/uL Hgb (13.0-17.5) gm/dL Hct (39.0-53.0) % MCV (80.0-100.0) fL MCH (25.0-35.0) pg Macrocytosis PT (9.0-12.0) sec INR (<1.2) Sodium 124 L (137-145) mmol/L Chloride 93 L (98-107) mmol/L Carbon Dioxide 21 L (22-30) mmol/L Creatinine 0.60 L (0.66-1.25) mg/dL Glucose 61 L (74-99) mg/dL POC Glucose (mg/dL) 115 H (70-110) mg/dL Calcium 7.7 L (8.4-10.2) mg/dL AST (17-59) U/L Alkaline Phosphatase (38-126) U/L Total Protein (6.3-8.2) g/dL Albumin (3.5-5.0) g/dL
[2023-04-30 10:54] LABS: Glucose,Whole Blood 124 mg/dL (70-110)
[2023-04-30] MEDS ORDERED: POTASSIUM CHLORIDE ER 20 MEQ TAB.ER PO STA (13:04)
--- NOTE | 2023-04-30 13:06 | P.NPCON ---
History of Present Illness - Reason for Consult hyponatremia - History of Present Illness Reason for consultation: Hyponatremia History of present illness: The patient is a 57-year-old male seen in renal co nsultation for hyponatremia. Patient's sodium level on admission was 121 and he received 1 L bolus of normal saline. He is currently maintained on normal saline at 50 mL an hour. Sodium level this morning is 124. Patient has history of alcohol induced liver cirrhosis. He continues to drink 2-3 beers on a daily basis. Patient in the hospital after he sustained a fall in the bathroom and did hit his head. He was also having diarrhea but states now resolved. Blood pressure was noted to be low in the systolic 70s to 80s and is now slightly better at 100/64 this morning. He is maintained on midodrine. Currently not on any diuretics. Patient's blood glucose noted to be low and is receiving D5 normal saline at this time. He denies chest pain or shortness of breath. No history of diabetes or coronary artery disease. Denies use of nonsteroidals. Last paracentesis 04/21/2023 with 4.5 L drained. Denies personal history of malignancy. Oral intake poor. Vital signs are stable. General: No acute distress. HEENT: Head exam is unremarkable. LUNGS: No audible rhonchi or wheezes. HEART: Rate and Rhythm are regular. ABDOMEN: Soft, mild distention. EXTREMITITES: Trace edema. Past Medical History Past Medical History: GI Bleed, Liver Disease Additional Past Medical History / Comment(s): Alcohol abuse, smoker History of Any Multi-Drug Resistant Organisms: None Reported Past Surgical History: No Surgical Hx Reported Additional Past Surgical History / Comment(s): Paracentesis 04/21/2023 Past Anesthesia/Blood Transfusion Reactions: No Reported Reaction Past Psychological History: No Psychological Hx Reported Smoking Status: Current every day smoker Past Alcohol Use History: Daily Past Drug Use History: None Reported - Past Family History Mother Family Medical History: Hypertension Medications and Allergies Home Medications Medication Instructions Recorded Confirmed Type Midodrine [ProAmatine] 10 mg PO AC-TID #90 tab 04/23/23 04/29/23 Rx Allergies Allergy/AdvReac Type Severity Reaction Status Date / Time No Known Allergies Allergy Verified 04/29/23 15:24 Physical Exam Vitals: Vital Signs Temp Pulse Pulse Resp BP BP Pulse Ox 04/30/23 11:09 97.6 F 88 18 100/64 93 L 04/30/23 07:25 97.6 F 95 18 90/61 93 L 04/30/23 06:45 87 15 90/61 97 04/30/23 06:30 84 16 77/51 96 04/30/23 06:15 81 16 82/54 95 04/30/23 06:00 82 15 80/57 95 04/30/23 05:45 116 H 85/57 04/30/23 04:32 85 16 94/60 85 L 04/30/23 00:40 97.4 F L 65 18 97/61 95 04/29/23 20:00 97.4 F L 65 18 87/57 98 04/29/23 18:18 76 18 94/58 100 04/29/23 16:32 65 18 98/66 99 04/29/23 14:19 82 18 79/45 96 Intake and Output 04/29/23 04/30/23 04/30/23 22:59 06:59 14:59 Intake Total 400 Balance 400 Intake: Intake, IV Titration 400 Amount Dextrose 5%-0.9% NaCl 1, 400 000 ml @ 50 mls/hr IV . Q20H [facility] Rx#:[id number] Other: Voiding Method Toilet # Voids 0 Weight 68.039 kg Results - Lab Results Most recent lab results Calcium 7.7 mg/dL (8.4-10.2) L 04/30/23 06:40 Magnesium 1.9 mg/dL (1.6-2.3) 04/30/23 06:40 04/30/23 06:09 04/30/23 06:40 Assessment and Plan Plan: Assessment: 1. Hypovolemic hyponatremia improved with IV hydration. Component of poor solute intake. Sodium level 121 on admission and is 124 this morning. 2. Hypokalemia from poor intake. 3. Alcohol-induced liver cirrhosis. 4. Hypoglycemia maintained on D5 normal saline. 5. Hypotension due to hypovolemia and underlying liver cirrhosis. On midodrine. Better. Plan: Maintain D5 normal saline. Check abdominal ultrasound. 1200 mL fluid restriction. Encourage oral intake. Check serum and urine osmolality. Check urine sodium level. Check TSH and cortisol level. Replace potassium. Repeat labs in the morning. Prognosis poor. Thank you for the consultation. I will continue to follow patient with you during his hospital stay.
[2023-04-30 14:11] LABS: Glucose,Whole Blood 113 mg/dL (70-110)
--- NOTE | 2023-04-30 15:25 | US ---
EXAMINATION TYPE: US abdomen limited DATE OF EXAM: 04/30/2023 COMPARISON: NONE CLINICAL INDICATION: Male, 57 years old with history of ascites; h/o ascites, no distention or abd pa in Technique: Multiple grayscale ultrasound images of the 4 quadrants of the abdomen for assessment of ascites. FINDINGS/IMPRESSION: Small to moderate volume ascites with largest pocket in the right lower quadrant.
[2023-04-30 16:40] LABS: Glucose,Whole Blood 104 mg/dL (70-110)
[2023-04-30 17:47] LABS: Blood Urea Nitrogen 8.4 mg/dL (9.0-27.0); Calcium 7.9 mg/dL (8.7-10.3); Carbon Dioxide 22.5 mmol/L (21.6-31.8); Chloride 93 mmol/L (96-109); Glucose 97 mg/dL (70-110); Potassium 3.5 mmol/L (3.5-5.5); Sodium 128 mmol/L (135-145)
[2023-04-30] MEDS: DEXTROSE 5%-0.9% NACL 1,000 ML IV SCH (17:52)
[2023-04-30 18:09] LABS: African American GFR (CKD) >90 (>60 ml/min/1.73 sqM); Anion Gap 7 mmol/L; Blood Urea Nitrogen 9 mg/dL (9-20); Calcium 7.6 mg/dL (8.4-10.2); Carbon Dioxide 22 mmol/L (22-30); Chloride 95 mmol/L (98-107); Glucose 92 mg/dL (74-99); Non-African American GFR(CKD) >90 (>60 ml/min/1.73 sqM); Potassium 3.8 mmol/L (3.5-5.1); Sodium 124 mmol/L (137-145)
[2023-04-30] MEDS ORDERED: FUROSEMIDE 10 MG/ML 2 ML VIAL IV ONE (19:28)
[2023-04-30 21:03] LABS: Glucose,Whole Blood 123 mg/dL (70-110)
[2023-05-01 01:46] LABS: Glucose,Whole Blood 139 mg/dL (70-110)
[2023-05-01 05:56] LABS: Glucose,Whole Blood 130 mg/dL (70-110)
[2023-05-01] MEDS: MIDODRINE 5 MG TAB PO SCH ×4 (06:45→18:18)
[2023-05-01] MEDS: ENOXAPARIN 40 MG/0.4 ML SYRINGE SQ SCH (09:03)
[2023-05-01] MEDS: MULTIVITAMINS, THERA 1 EACH TAB PO SCH (09:03)
[2023-05-01] MEDS: NICOTINE 21MG/24HR PATCH TRANSDERM SCH (09:03)
[2023-05-01] MEDS: FOLIC ACID 1 MG TAB PO SCH (09:03)
[2023-05-01] MEDS: THIAMINE 100 MG TAB PO SCH (09:03)
[2023-05-01 11:12] LABS: BUN/Creat Ratio 13.83 Ratio (12.00-20.00); Blood Urea Nitrogen 8.3 mg/dL (9.0-27.0); Calcium 7.7 mg/dL (8.7-10.3); Chloride 96 mmol/L (96-109); Glucose 121 mg/dL (70-110); Magnesium 1.8 mg/dL (1.5-2.4); Phosphorus 2.6 mg/dL (2.4-5.1); Potassium 3.3 mmol/L (3.5-5.5); Sodium 129 mmol/L (135-145)
[2023-05-01 11:35] LABS: Glucose,Whole Blood 108 mg/dL (70-110)
[2023-05-01] MEDS ORDERED: POTASSIUM CHLORIDE ER 20 MEQ TAB.ER PO STA (11:44)
--- NOTE | 2023-05-01 12:32 | P.PN ---
Subjective Patient is seen in follow-up for hyponatremia. Sodium level improving. Received a dose of IV Lasix yesterday. Oral intake is poor. Requiring straight catheterization for urinary retention. Nonoliguric. Vital signs are stable. Blood pressure in the lower side. General: No acute distress. HEENT: Head exam is unremarkable. LUNGS: No audible rhonchi or wheezes. HEART: Rate and Rhythm are regular. ABDOMEN: Soft, mild distention. EXTREMITITES: 1+ edema. Objective - Vital Signs Vital signs: Vital Signs Temp 97.4 F L 05/01/23 07:57 Pulse 74 05/01/23 07:57 Resp 19 05/01/23 07:57 BP 83/56 05/01/23 07:57 Pulse Ox 92 L 05/01/23 07:57 FiO2 Intake & Output 04/30/23 05/01/23 05/01/23 18:59 06:59 18:59 Intake Total 400 Output Total 1873 Balance 400 -1873 Intake: Intake, IV Titration 400 Amount Dextrose 5%-0.9% NaCl 1, 400 000 ml @ 50 mls/hr IV . Q20H [facility] Rx#:[id number] Output: Urine 1000 Straight 1000 Post Void Residual 873 Other: Voiding Method External Catheter Diaper # Voids 1 - Labs CBC & Chem 7: 04/30/23 06:09 05/01/23 07:21 Labs: Abnormal Lab Results - Last 24 Hours (Table) 04/30/23 04/30/23 04/30/23 Range/Units 12:16 12:16 14:09 Sodium 128 L (135-145) mmol/L Potassium (3.5-5.5) mmol/L Chloride 93 L (96-109) mmol/L Anion Gap 12.50 H (4.00-12.00) mmol/L BUN 8.4 L (9.0-27.0) mg/dL Creatinine (0.66-1.25) mg/dL Glucose (70-110) mg/dL POC Glucose (mg/dL) 113 H (70-110) mg/dL Osmolality 259 L (280-301) mosm/kg Calcium 7.9 L (8.7-10.3) mg/dL TSH (0.350-5.500) UIU/ML Free (T4) Reflex I (0.80-1.80) ng/dL Cortisol (3.1-22.4) UG/DL Ur Random Sodium (40-220) mmol/L 04/30/23 04/30/23 04/30/23 Range/Units 17:29 20:00 21:02 Sodium 124 L (135-145) mmol/L Potassium (3.5-5.5) mmol/L Chloride 95 L (96-109) mmol/L Anion Gap (4.00-12.00) mmol/L BUN (9.0-27.0) mg/dL Creatinine 0.60 L (0.66-1.25) mg/dL Glucose (70-110) mg/dL POC Glucose (mg/dL) 123 H (70-110) mg/dL Osmolality (280-301) mosm/kg Calcium 7.6 L (8.7-10.3) mg/dL TSH (0.350-5.500) UIU/ML Free (T4) Reflex I (0.80-1.80) ng/dL Cortisol (3.1-22.4) UG/DL Ur Random Sodium <20 L (40-220) mmol/L 05/01/23 05/01/23 05/01/23 Range/Units 01:45 05:54 07:21 Sodium 129 L (135-145) mmol/L Potassium 3.3 L (3.5-5.5) mmol/L Chloride (96-109) mmol/L Anion Gap (4.00-12.00) mmol/L BUN 8.3 L (9.0-27.0) mg/dL Creatinine (0.66-1.25) mg/dL Glucose 121 H (70-110) mg/dL POC Glucose (mg/dL) 139 H 130 H (70-110) mg/dL Osmolality (280-301) mosm/kg Calcium 7.7 L (8.7-10.3) mg/dL TSH 5.850 H (0.350-5.500) UIU/ML Free (T4) Reflex I 0.65 L (0.80-1.80) ng/dL Cortisol 26.9 H (3.1-22.4) UG/DL Ur Random Sodium (40-220) mmol/L Assessment and Plan Plan: Assessment: 1. Hypovolemic hyponatremia improved with IV hydration. Component of poor solute intake. Sodium level 121 on admission and is 129 this morning. Urine sodium less than 20 and urine osmolality 201. TSH slightly elevated at 5.85. 2. Hypokalemia from poor intake and diuresis. Replaced. 3. Alcohol-induced liver cirrhosis. Small to moderate ascites noted on ultrasound. 4. Hypoglycemia, improved. 5. Hypotension due to hypovolemia and underlying liver cirrhosis. On midodrine. Cortisol level not low. 6. Urinary retention. Requiring straight catheterizations with over 500 mL of urine obtained. Plan: Add oral Lasix 20 mg once daily. Insert [place] catheter if has persistent urinary retention. 1200 mL fluid restriction. Encourage oral intake. Prognosis poor.
[2023-05-01] MEDS: FUROSEMIDE 20 MG TAB PO SCH (13:37)
[2023-05-01 15:59] LABS: Glucose,Whole Blood 129 mg/dL (70-110)
--- NOTE | 2023-05-01 16:56 | P.PN ---
Subjective Progress Note Date: 05/01/23 Hospital course: Patient is a very pleasant 57-year-old male with a past medical history of alcoholic liver cirrhosis, continued alcohol use reporting drinking randal roximately 3 beers every other day, and nicotine dependence. Patient reports last paracentesis was 04/21/23 with removal of 4.5 L of fluid and last alcoholic beverage being 04/28/23. Patient presented to the emergency department via EMS secondary to reports of weakness and recurrent falls. Patient was initially thought to have been intoxicated however patient was found to be hypoglycemic with blood glucose of 39 and hypotensive with blood pressure 79/45. Patient reports that he takes midodrine 10 mg 3 times daily for treatment of his chronic hypotension resulting from advanced liver cirrhosis, but reports he has not taken this medication in a couple of days. Patient did report that he felt weak and dizzy, but denies having any falls or loss of consciousness and denies hitting his head. No obvious injury noted at this time. Patient underwent full evaluation in the emergency department. Vital signs reviewed. Blood pressure 79/45, heart rate 82, respiratory rate 18, and SpO2 of 96% on room air. Labs completed and reviewed. CBC showing macrocytic hyperchromic anemia with hemoglobin of 11.0. Coagulation profile revealing elevated PT of 12.8 and INR 1.3. BMP revealing acute on chronic hyponatremia with sodium 121, chloride 88, bicarbonate 18, and severe hypoglycemia with glucose of 39. Liver profile revealing elevated AST of 198 and alkaline phosphatase of 227 and albumin of 2.6. Blood alcohol level was less than 10. A chest x-ray was completed negative for acute cardiopulmonary process. Patient was admitted under our services for symptomatic hypotension, acute on chronic hyponatremia and hypoglycemia. Physical exam: Patient seen and fully evaluated at bedside this morning. He has had stable blood glucose levels over the past 24 hours. Currently sodium 124. Patient continues to have lack of appetite. Patient encouraged oral intake. He continues to deny having any pain or complaints. Vital signs reviewed and stable. General: Nontoxic, no distress and appears stated age. Patient with bruising/ecchymosis surrounding the left orbital region and side of forehead Derm: Skin warm and dry, normal coloration for ethnicity. Patient with multiple bruises and scabs covering upper extremities. Patient with skin tear on bilateral arms Head: Atraumatic, normocephalic and symmetric. Eyes: EOMs intact, no lid lag, and anicteric sclera Mouth: no lip lesions, mucus membranes moist Cardiovascular: regular rate and rhythm with normal S1S2, systolic murmur, positive posterior tibial pulses bilaterally, and cap refill < 2 seconds. Lungs: Respirations even, regular, and unlabored on room air. Lungs CTA bilatera lly, no rhonchi, no rales, no wheezing, and no accessory muscle usage. Abdominal: Cirrhotic abdomen, nontender to palpation, no guarding, no appreciable organomegaly Ext: ROM intact. No gross muscle atrophy, 2-3+ pitting bilateral lower extremity edema, no contractures Neuro: Speech clear, face symmetrical and CN II-XII grossly intact with no noted focal neuro deficits Psych: Alert and oriented to person, place, time, and situation. Appropriate and pleasant affect. Assessment and Plan of Care: Acute on chronic hyponatremia, believed to be secondary to decompensated cirrhosis with ascites along with poor oral intake. Symptomatic hypotension Alcoholic liver cirrhosis, decompensated with continued alcohol use -Nephrology following secondary to acute on chronic hyponatremia and discussed plan of care with Dr. Gar and he discontinued D5 0.9% NS and adding daily Lasix to medication regimen. -Sodium increasing over the past 6 hours from 124-129. -Continue glucose checks ACHS and 2 AM -Continue to encourage oral intake along with protein supplements 3 times daily between meals. -Continue with half an amp of D50 or 25 mL as needed for glucose less than 70 and 1 amp or 50 mL of D50 as needed for glucose less than 50. -Seizure precautions and fall precautions to continue. -Midodrine increased to 10 mg 4x times daily for treatment of persistent hypotension. -Abdominal ultrasound revealing small to moderate volume ascites with largest pocket in the right lower quadrant. Abdomen is still soft distended inpatient free from any pain or complaints at this time. We will hold off on repeat paracentesis as patient just underwent paracentesis on 04/21/23 and no indication to repeat at this time. Urinary retention -Patient had 2 episodes of urinary retention with greater than 500 mL retained. Requiring straight catheterization 2. -Patient being started on Flomax 0.4 mg daily and RN instructed if recurrent episodes of retention, Campa catheter to be placed and urology to be consulted. Hypokalemia -Potassium 3.3. Orders placed for K Dur 40 mEq 1 dose. Reported Unwitnessed Fall -Fall precautions to remain in place. 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 Long-standing history of alcohol abuse, patient reports cutting back to 3 beers every other day over the last few months. -Continue monitoring CIWA scores to continue and patient to be medicated with Ativan 0.5 mg every 4 hours as needed for CIWA score of 4-5, Ativan 1 mg every 4 hours for CIWA score of 6-7, Ativan 2 mg every 3 hours CIWA score of 8-9, and Ativan 2 mg every 2 hours forr CIWA score of 10 or greater. -Patient has not required any symptom triggered benzodiazepine treatment since arrival to our facility, reports last drink was 04/28/23. CIWA score 0. Hypoglycemia, resolved Nicotine dependence. -Nicotine patch 21 mg daily, patient encouraged to stop smoking. Imaging reviewed: Abdominal ultrasound revealing small to moderate volume ascites with largest pocket in the right lower quadrant. Data reviewed: Vital signs reviewed and stable. Blood pressure 83/56, heart rate 74, respiratory rate 19, temp 97.4F, and SpO2 of 92% on 2 L. Labs reviewed. BMP revealing improving hyponatremia with sodium 129, resolution of hypochloremia with chloride of 96, mild hypokalemia with potassium of 3.3, and stable renal function with BUN of 8.3, creatinine of 0.6, and GFR of 111. Blood glucose 121. Magnesium 1.8. Urine osmolality 201 and urine sodium less than 20. TSH elevated at 5.850. CODE STATUS: Full code DVT prophylaxis: Lovenox Discussed with: Patient, RN, and award machine operator Anticipated discharge date: Clinical course to determine Anticipated discharge place: Home Patient was seen independently by Nurse Practitioner. This document was prepared using [employer] dictation software. Please allow for errors in supervisor hospitality house while rare they do occur. Von Samuel NP rendered care for this patient independently, reviewed the findings and plan as documented in the note above. I did not physically speak with or examine the patient on this date. Objective - Vital Signs Vital signs: Vital Signs Temp 97.4 F L 05/01/23 07:57 Pulse 74 05/01/23 07:57 Resp 19 05/01/23 07:57 BP 83/56 05/01/23 07:57 Pulse Ox 92 L 05/01/23 07:57 FiO2 Intake & Output 04/30/23 05/01/23 05/01/23 18:59 06:59 18:59 Intake Total 400 Output Total 1873 Balance 400 -1873 Intake: Intake, IV Titration 400 Amount Dextrose 5%-0.9% NaCl 1, 400 000 ml @ 50 mls/hr IV . Q20H ON LICENSE OF [facility] Rx#:[id number] Output: Urine 1000 Straight 1000 Post Void Residual 873 Other: Voiding Method External Catheter # Voids 1 - Labs CBC & Chem 7: 05/02/23 07:05 05/02/23 07:05 Labs: Abnormal Lab Results - Last 24 Hours (Table) 04/30/23 04/30/23 04/30/23 Range/Units 06:09 09:46 10:53 RBC 2.82 L (4.40-5.60) X 10*6/uL Hgb 10.0 L (13.0-17.0) d/dL Hct 28.4 L (39.6-50.0) % MCV 100.7 H (80.0-97.0) FL MCH 35.5 H (27.0-32.0) pg RDW 14.6 H (11.5-14.5) % Sodium (135-145) mmol/L Chloride (96-109) mmol/L Anion Gap (4.00-12.00) mmol/L BUN (9.0-27.0) mg/dL Creatinine (0.66-1.25) mg/dL POC Glucose (mg/dL) 140 H 124 H (70-110) mg/dL Osmolality (280-301) mosm/kg Calcium (8.7-10.3) mg/dL Ur Random Sodium (40-220) mmol/L 04/30/23 04/30/23 04/30/23 Range/Units 12:16 12:16 14:09 RBC (4.40-5.60) X 10*6/uL Hgb (13.0-17.0) d/dL Hct (39.6-50.0) % MCV (80.0-97.0) FL MCH (27.0-32.0) pg RDW (11.5-14.5) % Sodium 128 L (135-145) mmol/L Chloride 93 L (96-109) mmol/L Anion Gap 12.50 H (4.00-12.00) mmol/L BUN 8.4 L (9.0-27.0) mg/dL Creatinine (0.66-1.25) mg/dL POC Glucose (mg/dL) 113 H (70-110) mg/dL Osmolality 259 L (280-301) mosm/kg Calcium 7.9 L (8.7-10.3) mg/dL Ur Random Sodium (40-220) mmol/L 04/30/23 04/30/23 04/30/23 Range/Units 17:29 20:00 21:02 RBC (4.40-5.60) X 10*6/uL Hgb (13.0-17.0) d/dL Hct (39.6-50.0) % MCV (80.0-97.0) FL MCH (27.0-32.0) pg RDW (11.5-14.5) % Sodium 124 L (135-145) mmol/L Chloride 95 L (96-109) mmol/L Anion Gap (4.00-12.00) mmol/L BUN (9.0-27.0) mg/dL Creatinine 0.60 L (0.66-1.25) mg/dL POC Glucose (mg/dL) 123 H (70-110) mg/dL Osmolality (280-301) mosm/kg Calcium 7.6 L (8.7-10.3) mg/dL Ur Random Sodium <20 L (40-220) mmol/L 05/01/23 05/01/23 Range/Units 01:45 05:54 RBC (4.40-5.60) X 10*6/uL Hgb (13.0-17.0) d/dL Hct (39.6-50.0) % MCV (80.0-97.0) FL MCH (27.0-32.0) pg RDW (11.5-14.5) % Sodium (135-145) mmol/L Chloride (96-109) mmol/L Anion Gap (4.00-12.00) mmol/L BUN (9.0-27.0) mg/dL Creatinine (0.66-1.25) mg/dL POC Glucose (mg/dL) 139 H 130 H (70-110) mg/dL Osmolality (280-301) mosm/kg Calcium (8.7-10.3) mg/dL Ur Random Sodium (40-220) mmol/L
--- NOTE | 2023-05-01 17:13 | P.PN ---
Progress Note - Text Progress Note Date: 04/30/23 Late entry, this conversation took place on 04/30/23 at 10 AM. Advanced Care Planning: Diagnoses: Decompensated alcoholic cirrhosis Discussion: Person present and participating in discussion: Patient Summary: Patient has poor prognosis with his decompensated liver cirrhosis secondary to long-standing daily alcohol use. Patient also Has multiple other challenges secondary to being homeless and lack of transportation to obtain food and nutrition, proper healthcare and much-needed medications. Discussed living situation with patient and he does report that he occasionally will stay with his brother but did not want staff to call and speak with him at this time. We discussed CODE STATUS and patient wants to be a DO NOT RESUSCITATE/DO NOT INTUBATE. But he also states that he does not want assistance with placement in penitentiary facility or discussion of hospice or palliative care. Patient encouraged to increase oral intake, dietitian consulted, orders were placed for protein supplements 3 times daily between meals. Will discuss with social work/case management to determine what community resources are available for patient. Patient was strongly encouraged to consider palliative care and skilled rehab placement secondary to decompensating liver cirrhosis. Patient does not follow routinely with outpatient providers as he does not have kumar sportation or means. Patient reports he only gets refills on his medications when he is hospitalized and is provided with prescriptions upon discharge. A total of 17 minutes of face to face time was spent discussing advanced care planning. Von Samuel NP rendered care for this patient independently, reviewed the findings and plan as documented in the note above. I did not physically speak with or examine the patient on this date.
[2023-05-01] MEDS ORDERED: TAMSULOSIN 0.4 MG CAP.ER.24H PO SCH (18:30)
[2023-05-01 20:50] LABS: Glucose,Whole Blood 124 mg/dL (70-110)
[2023-05-01] MEDS ORDERED: SODIUM CHLORIDE 0.9% 500 ML 500 ML IV ONE (20:56)
[2023-05-02 02:45] LABS: Glucose,Whole Blood 116 mg/dL (70-110)
[2023-05-02] MEDS: MIDODRINE 5 MG TAB PO SCH ×4 (05:42→17:15)
[2023-05-02 06:05] LABS: Glucose,Whole Blood 112 mg/dL (70-110)
[2023-05-02] MEDS: FUROSEMIDE 20 MG TAB PO SCH (08:07)
[2023-05-02] MEDS: ENOXAPARIN 40 MG/0.4 ML SYRINGE SQ SCH (08:08)
[2023-05-02] MEDS: NICOTINE 21MG/24HR PATCH TRANSDERM SCH (08:08)
[2023-05-02] MEDS: MULTIVITAMINS, THERA 1 EACH TAB PO SCH (08:08)
[2023-05-02] MEDS: THIAMINE 100 MG TAB PO SCH (08:08)
[2023-05-02] MEDS: FOLIC ACID 1 MG TAB PO SCH (08:08)
[2023-05-02 11:14] LABS: Glucose,Whole Blood 117 mg/dL (70-110)
--- NOTE | 2023-05-02 11:40 | P.PN ---
Subjective Patient is seen in follow-up for hyponatremia. Sodium level improving. Maintained on oral Lasix. Blood pressure low this morning. Oral intake is poor. Campa catheter placed for urinary retention. Vital signs are stable. Blood pressure in the lower side. General: No acute distress. HEENT: Head exam is unremarkable. LUNGS: No audible rhonchi or wheezes. HEART: Rate and Rhythm are regular. ABDOMEN: Soft, mild distention. EXTREMITITES: Trace edema. Objective - Vital Signs Vital signs: Vital Signs Temp 98.4 F 05/02/23 07:16 Pulse 77 05/02/23 10:26 Resp 18 05/02/23 07:16 BP 66/46 05/02/23 10:26 Pulse Ox 95 05/02/23 07:16 FiO2 Intake & Output 05/01/23 05/02/23 05/02/23 18:59 06:59 18:59 Intake Total 400 358 Balance 400 358 Intake: Oral 400 358 Other: Voiding Method Diaper Diaper - Labs CBC & Chem 7: 04/30/23 06:09 05/01/23 07:21 Labs: Abnormal Lab Results - Last 24 Hours (Table) 05/01/23 05/01/23 05/01/23 Range/Units 07:21 15:57 20:48 Sodium 129 L (135-145) mmol/L Potassium 3.3 L (3.5-5.5) mmol/L BUN 8.3 L (9.0-27.0) mg/dL Glucose 121 H (70-110) mg/dL POC Glucose (mg/dL) 129 H 124 H (70-110) mg/dL Calcium 7.7 L (8.7-10.3) mg/dL TSH 5.850 H (0.350-5.500) UIU/ML Free (T4) Reflex I 0.65 L (0.80-1.80) ng/dL Cortisol 26.9 H (3.1-22.4) UG/DL 05/02/23 05/02/23 05/02/23 Range/Units 02:44 06:04 11:11 Sodium (135-145) mmol/L Potassium (3.5-5.5) mmol/L BUN (9.0-27.0) mg/dL Glucose (70-110) mg/dL POC Glucose (mg/dL) 116 H 112 H 117 H (70-110) mg/dL Calcium (8.7-10.3) mg/dL TSH (0.350-5.500) UIU/ML Free (T4) Reflex I (0.80-1.80) ng/dL Cortisol (3.1-22.4) UG/DL Assessment and Plan Plan: Assessment: 1. Hypovolemic hyponatremia improved with IV hydration. Component of poor solute intake. Sodium level 121 on admission - 129 as of yesterday. Urine sodium less than 20 and urine osmolality 201. TSH slightly elevated at 5.85. 2. Hypokalemia from poor intake and diuresis. Replaced. 3. Alcohol-induced liver cirrhosis. Small to moderate ascites noted on ultrasound. 4. Hypoglycemia, improved. 5. Hypotension due to hypovolemia and underlying liver cirrhosis. On midodrine. Cortisol level not low. 6. Urinary retention. Campa catheter placed. Plan: Hold Lasix and Flomax due to hypotension. Maintain 1200 mL fluid restriction. Encourage oral intake. Maintain midodrine. Cortisol level not low. Prognosis poor.
[2023-05-02 12:59] LABS: HCT 28.3 % (39.6-50.0); MCH 34.5 pg (27.0-32.0); MCHC 31.8 d/dL (32.0-37.0); MCV 108.4 FL (80.0-97.0); Mean Platelet Volume 12.7 FL (9.5-12.2); NRBC Per 100 WBC 0 X 10*3/uL (0.00-0.01); Platelet Count 92 X 10*3/uL (140-440); RBC 2.61 X 10*6/uL (4.40-5.60); RDW 15.6 % (11.5-14.5)
[2023-05-02 13:31] LABS: ALT 34 U/L (10-49); AST 109 U/L (14-35); Albumin 2.3 d/dL (3.8-4.9); Alkaline Phosphatase 198 U/L (41-126); Calcium 7.6 mg/dL (8.7-10.3); Carbon Dioxide 23.5 mmol/L (21.6-31.8); Chloride 100 mmol/L (96-109); Globulin 2.1 d/dL (1.6-3.3); Glucose 97 mg/dL (70-110); Magnesium 1.7 mg/dL (1.5-2.4); Potassium 3.3 mmol/L (3.5-5.5); Sodium 133 mmol/L (135-145); Total Bilirubin 0.7 mg/dL (0.3-1.2); Total Protein 4.4 d/dL (6.2-8.2)
[2023-05-02] MEDS ORDERED: POTASSIUM CHLORIDE ER 20 MEQ TAB.ER PO STA (14:06)
[2023-05-02] MEDS: MAGNESIUM SULFATE-D5W PMX 1 GM in DEXTROSE/WATER 1 100ML.BAG IVPB SCH ×2 (15:19→17:15)
[2023-05-02 15:43] VITALS: BMI 22.8
[2023-05-02 16:13] LABS: Glucose,Whole Blood 161 mg/dL (70-110)
--- NOTE | 2023-05-02 18:39 | P.PN ---
Subjective Progress Note Date: 05/02/23 Hospital course: Patient is a very pleasant 57-year-old male with a past medical history of alcoholic liver cirrhosis, continued alcohol use reporting drinking randal roximately 3 beers every other day, and nicotine dependence. Patient reports last paracentesis was 04/21/23 with removal of 4.5 L of fluid and last alcoholic beverage being 04/28/23. Patient presented to the emergency department via EMS secondary to reports of weakness and recurrent falls. Patient was initially thought to have been intoxicated however patient was found to be hypoglycemic with blood glucose of 39 and hypotensive with blood pressure 79/45. Patient reports that he takes midodrine 10 mg 3 times daily for treatment of his chronic hypotension resulting from advanced liver cirrhosis, but reports he has not taken this medication in a couple of days. Patient did report that he felt weak and dizzy, but denies having any falls or loss of consciousness and denies hitting his head. No obvious injury noted at this time. Patient underwent full evaluation in the emergency department. Vital signs reviewed. Blood pressure 79/45, heart rate 82, respiratory rate 18, and SpO2 of 96% on room air. Labs completed and reviewed. CBC showing macrocytic hyperchromic anemia with hemoglobin of 11.0. Coagulation profile revealing elevated PT of 12.8 and INR 1.3. BMP revealing acute on chronic hyponatremia with sodium 121, chloride 88, bicarbonate 18, and severe hypoglycemia with glucose of 39. Liver profile revealing elevated AST of 198 and alkaline phosphatase of 227 and albumin of 2.6. Blood alcohol level was less than 10. A chest x-ray was completed negative for acute cardiopulmonary process. Patient was admitted under our services for symptomatic hypotension, acute on chronic hyponatremia and hypoglycemia. Physical exam: Patient seen and fully evaluated at bedside this morning. He continues to have stable blood glucose levels over the past 24 hours. Currently sodium 133. Patient continues to have lack of appetite and again educated on the importance of increasing oral intake. He continues to deny having any pain or complaints. Patient also encouraged to work with physical therapy today as he has been unable to stand up likely secondary to significant hypotension. We'll plan for likely discharge to rehab once patient is stable. Vital signs reviewed and stable. General: Nontoxic, no distress and appears stated age. Patient with bruising/ecchymosis surrounding the left orbital region and side of forehead Derm: Skin warm and dry, normal coloration for ethnicity. Patient with multiple bruises and scabs covering upper extremities. Patient with skin tear on bilateral arms Head: Atraumatic, normocephalic and symmetric. Eyes: EOMs intact, no lid lag, and anicteric sclera Mouth: no lip lesions, mucus membranes moist Cardiovascular: regular rate and rhythm with normal S1S2, systolic murmur, positive posterior tibial pulses bilaterally, and cap refill < 2 seconds. Lungs: Respirations even, regular, and unlabored on room air. Lungs CTA bilaterally, no rhonchi, no rales, no wheezing, and no accessory muscle usage. Abdominal: Cirrhotic abdomen, nontender to palpation, no guarding, no appreciable organomegaly Ext: ROM intact. No gross muscle atrophy, 2-3+ pitting bilateral lower extremity edema, no contractures Neuro: Speech clear, face symmetrical and CN II-XII grossly intact with no noted focal neuro deficits Psych: Alert and oriented to person, place, time, and situation. Appropriate and pleasant affect. Assessment and Plan of Care: Acute on chronic hyponatremia, believed to be secondary to decompensated cirrhosis with ascites along with poor oral intake. Symptomatic hypotension Alcoholic liver cirrhosis, decompensated with continued alcohol use -Nephrology following secondary to acute on chronic hyponatremia and discussed plan of care with Dr. Gar. -Morning sodium 133. -Continue glucose checks ACHS and 2 AM -Continue to encourage oral intake along with protein supplements 3 times daily between meals. -Continue with half an amp of D50 or 25 mL as needed for glucose less than 70 and 1 amp or 50 mL of D50 as needed for glucose less than 50. -Seizure precautions and fall precautions to continue. -Midodrine to continue at 10 mg 4x daily for treatment of persistent hypotension. -Abdominal ultrasound revealing small to moderate volume ascites with largest pocket in the right lower quadrant. Abdomen is still soft distended inpatient free from any pain or complaints at this time. We will hold off on repeat paracentesis as patient just underwent paracentesis on 04/21/23 and no indication to repeat at this time and concerns that patient will not tolerate secondary to persistent hypotension. Urinary retention -Patient had 3 episodes of urinary retention with greater than 500 mL retained. Requiring straight catheterization 2 and as instructed placed Campa catheter. -Initially Flomax was going to be initiated however secondary to worsening hypotension it was Continue Campa catheter care. Hypokalemia -Potassium 3.3. Orders placed for K Dur 40 mEq 1 dose.We will follow up with repeat morning labs and continue to replace any electrolyte abnormalities as needed based upon these results. Hypomagnesemia -Magnesium 1.7. Orders placed for magnesium sulfate 2 g IVPB 1 dose. We will follow up with repeat morning labs and continue to replace any electrolyte abnormalities as needed based upon these results. Reported Unwitnessed Fall -Fall precautions to remain in place. 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 Long-standing history of alcohol abuse, patient reports cutting back to 3 beers every other day over the last few months. -Continue monitoring CIWA scores to continue and patient to be medicated with Ativan 0.5 mg every 4 hours as needed for CIWA score of 4-5, Ativan 1 mg every 4 hours for CIWA score of 6-7, Ativan 2 mg every 3 hours CIWA score of 8-9, and Ativan 2 mg every 2 hours forr CIWA score of 10 or greater. -Patient has not required any symptom triggered benzodiazepine treatment since arrival to our facility, reports last drink was 04/28/23. CIWA score 0. Hypoglycemia, resolved -Blood glucose levels over the past 24 hours have ranged from 108-130. Nicotine dependence. -Nicotine patch 21 mg daily, patient encouraged to stop smoking. Imaging reviewed: Abdominal ultrasound revealing small to moderate volume ascites with largest pocket in the right lower quadrant. Data reviewed: Vital signs reviewed and stable. Blood pressure 95/61, heart rate 106, respiratory rate 18, temp 98.4F, and SpO2 of 95% on 2 L. Labs reviewed. BMP revealing improving hyponatremia with sodium 133 in mild hypokalemia with potassium of 3.3. Magnesium also slightly low 1.7. Patient has had no further episodes of hypoglycemia. CODE STATUS: Full code DVT prophylaxis: Lovenox Discussed with: Patient, RN, and mountain bike guide Anticipated discharge date: Clinical course to determine Anticipated discharge place: Home Patient was seen independently by Nurse Practitioner. This document was prepared using [employer] dictation software. Please allow for errors in video technician while rare they do occur. Von Jimmie, COATING INSPECTOR rendered care for this patient independently, reviewed the findings and plan as documented in the note above. I did not physically speak with or examine the patient on this date. Objective - Vital Signs Vital signs: Vital Signs Temp 98.4 F 05/02/23 07:16 Pulse 106 H 05/02/23 07:16 Resp 18 05/02/23 07:16 BP 95/61 05/02/23 07:16 Pulse Ox 95 05/02/23 07:16 FiO2 Intake & Output 05/01/23 05/02/23 05/02/23 18:59 06:59 18:59 Intake Total 400 Balance 400 Intake: Oral 400 Other: Voiding Method Diaper Diaper - Labs CBC & Chem 7: 05/02/23 07:05 05/02/23 07:05 Labs: Abnormal Lab Results - Last 24 Hours (Table) 05/01/23 05/01/23 05/01/23 Range/Units 07:21 15:57 20:48 Sodium 129 L (135-145) mmol/L Potassium 3.3 L (3.5-5.5) mmol/L BUN 8.3 L (9.0-27.0) mg/dL Glucose 121 H (70-110) mg/dL POC Glucose (mg/dL) 129 H 124 H (70-110) mg/dL Calcium 7.7 L (8.7-10.3) mg/dL TSH 5.850 H (0.350-5.500) UIU/ML Free (T4) Reflex I 0.65 L (0.80-1.80) ng/dL Cortisol 26.9 H (3.1-22.4) UG/DL 05/02/23 05/02/23 Range/Units 02:44 06:04 Sodium (135-145) mmol/L Potassium (3.5-5.5) mmol/L BUN (9.0-27.0) mg/dL Glucose (70-110) mg/dL POC Glucose (mg/dL) 116 H 112 H (70-110) mg/dL Calcium (8.7-10.3) mg/dL TSH (0.350-5.500) UIU/ML Free (T4) Reflex I (0.80-1.80) ng/dL Cortisol (3.1-22.4) UG/DL
[2023-05-02 20:37] LABS: Glucose,Whole Blood 131 mg/dL (70-110)
[2023-05-03 02:15] LABS: Glucose,Whole Blood 168 mg/dL (70-110)
[2023-05-03 05:55] LABS: Glucose,Whole Blood 111 mg/dL (70-110)
[2023-05-03] MEDS: MIDODRINE 5 MG TAB PO SCH ×5 (05:56→23:28)
[2023-05-03 10:21] LABS: HGB 9.2 d/dL (13.0-17.0); MCH 35.2 pg (27.0-32.0); MCHC 32.9 d/dL (32.0-37.0); MCV 107.3 FL (80.0-97.0); Mean Platelet Volume 12.5 FL (9.5-12.2); NRBC Per 100 WBC 0 X 10*3/uL (0.00-0.01); Platelet Count 96 X 10*3/uL (140-440); RBC 2.61 X 10*6/uL (4.40-5.60); RDW 16.2 % (11.5-14.5); WBC 5.85 X 10*3/uL (4.50-10.00)
[2023-05-03] MEDS: NICOTINE 21MG/24HR PATCH TRANSDERM SCH (10:43)
[2023-05-03] MEDS: FOLIC ACID 1 MG TAB PO SCH (10:43)
[2023-05-03] MEDS: MULTIVITAMINS, THERA 1 EACH TAB PO SCH (10:43)
[2023-05-03] MEDS: ENOXAPARIN 40 MG/0.4 ML SYRINGE SQ SCH (10:43)
[2023-05-03] MEDS: THIAMINE 100 MG TAB PO SCH (10:43)
[2023-05-03 11:18] LABS: Glucose,Whole Blood 126 mg/dL (70-110)
[2023-05-03 12:01] LABS: ALT 35 U/L (10-49); AST 97 U/L (14-35); Albumin 2.5 d/dL (3.8-4.9); Albumin/Globulin Ratio 1.19 Ratio (1.60-3.17); Alkaline Phosphatase 212 U/L (41-126); Blood Urea Nitrogen 13.1 mg/dL (9.0-27.0); Calcium 7.9 mg/dL (8.7-10.3); Carbon Dioxide 23.2 mmol/L (21.6-31.8); Chloride 101 mmol/L (96-109); Globulin 2.1 d/dL (1.6-3.3); Glucose 88 mg/dL (70-110); Magnesium 2.1 mg/dL (1.5-2.4); Potassium 3.9 mmol/L (3.5-5.5); Sodium 134 mmol/L (135-145); Total Bilirubin 0.7 mg/dL (0.3-1.2); Total Protein 4.6 d/dL (6.2-8.2)
--- NOTE | 2023-05-03 13:49 | P.PN ---
Subjective Patient is seen in follow-up for hyponatremia. Oral intake is poor. Campa catheter placed for urinary retention. Sodium at 134 today Maintained on fluid restriction. Currently not on IV fluids or diuretics. Objective - Vital Signs Vital signs: Vital Signs Temp 98.4 F 05/03/23 07:00 Pulse 88 05/03/23 07:00 Resp 18 05/03/23 07:00 BP 90/53 05/03/23 07:00 Pulse Ox 93 L 05/03/23 07:00 FiO2 Intake & Output 05/02/23 05/03/23 05/03/23 18:59 06:59 18:59 Intake Total 1434 240 Output Total 800 250 Balance 634 -10 Weight 68.039 kg Intake: Oral 1434 240 Output: Urine 800 250 Other: Voiding Method Indwelling Catheter Indwelling Catheter Indwelling Catheter # Bowel Movements 0 - Exam Awake, comfortable, no acute distress Examination of the heart S1 and S2 Examination of the lungs bilateral breath sounds are heard Abdomen is soft nontender Examination of lower extremities shows no evidence of edema WAREHOUSE PACKER exam grossly intact - Labs CBC & Chem 7: 05/03/23 04:32 05/03/23 04:29 Labs: Abnormal Lab Results - Last 24 Hours (Table) 05/02/23 05/02/23 05/03/23 Range/Units 16:11 20:36 02:14 RBC (4.40-5.60) X 10*6/uL Hgb (13.0-17.0) d/dL Hct (39.6-50.0) % MCV (80.0-97.0) FL MCH (27.0-32.0) pg RDW (11.5-14.5) % Plt Count (140-440) X 10*3/uL MPV (9.5-12.2) FL Sodium (135-145) mmol/L Creatinine (0.6-1.5) mg/dL BUN/Creatinine Ratio (12.00-20.00) Ratio POC Glucose (mg/dL) 161 H 131 H 168 H (70-110) mg/dL Calcium (8.7-10.3) mg/dL AST (14-35) U/L Alkaline Phosphatase (41-126) U/L Total Protein (6.2-8.2) d/dL Albumin (3.8-4.9) d/dL Albumin/Globulin Ratio (1.60-3.17) Ratio 05/03/23 05/03/23 05/03/23 Range/Units 04:29 04:32 05:53 RBC 2.61 L (4.40-5.60) X 10*6/uL Hgb 9.2 L (13.0-17.0) d/dL Hct 28.0 L (39.6-50.0) % MCV 107.3 H (80.0-97.0) FL MCH 35.2 H (27.0-32.0) pg RDW 16.2 H (11.5-14.5) % Plt Count 96 L (140-440) X 10*3/uL MPV 12.5 H (9.5-12.2) FL Sodium 134 L (135-145) mmol/L Creatinine 0.5 L (0.6-1.5) mg/dL BUN/Creatinine Ratio 26.20 H (12.00-20.00) Ratio POC Glucose (mg/dL) 111 H (70-110) mg/dL Calcium 7.9 L (8.7-10.3) mg/dL AST 97 H (14-35) U/L Alkaline Phosphatase 212 H (41-126) U/L Total Protein 4.6 L (6.2-8.2) d/dL Albumin 2.5 L (3.8-4.9) d/dL Albumin/Globulin Ratio 1.19 L (1.60-3.17) Ratio 05/03/23 Range/Units 11:17 RBC (4.40-5.60) X 10*6/uL Hgb (13.0-17.0) d/dL Hct (39.6-50.0) % MCV (80.0-97.0) FL MCH (27.0-32.0) pg RDW (11.5-14.5) % Plt Count (140-440) X 10*3/uL MPV (9.5-12.2) FL Sodium (135-145) mmol/L Creatinine (0.6-1.5) mg/dL BUN/Creatinine Ratio (12.00-20.00) Ratio POC Glucose (mg/dL) 126 H (70-110) mg/dL Calcium (8.7-10.3) mg/dL AST (14-35) U/L Alkaline Phosphatase (41-126) U/L Total Protein (6.2-8.2) d/dL Albumin (3.8-4.9) d/dL Albumin/Globulin Ratio (1.60-3.17) Ratio Assessment and Plan Assessment: Continue to hold diuretics Continue with the fluid restriction but may liberalize to 1500 ML. Repeat labs in a.m. Continue with midodrine
--- NOTE | 2023-05-03 15:01 | P.PN ---
Subjective Progress Note Date: 05/03/23 Hospital course: Patient is a very pleasant 57-year-old male with a past medical history of alcoholic liver cirrhosis, continued alcohol use reporting drinking randal roximately 3 beers every other day, and nicotine dependence. Patient reports last paracentesis was 04/21/23 with removal of 4.5 L of fluid and last alcoholic beverage being 04/28/23. Patient presented to the emergency department via EMS secondary to reports of weakness and recurrent falls. Patient was initially thought to have been intoxicated however patient was found to be hypoglycemic with blood glucose of 39 and hypotensive with blood pressure 79/45. Patient reports that he takes midodrine 10 mg 3 times daily for treatment of his chronic hypotension resulting from advanced liver cirrhosis, but reports he has not taken this medication in a couple of days. Patient did report that he felt weak and dizzy, but denies having any falls or loss of consciousness and denies hitting his head. No obvious injury noted at this time. Patient underwent full evaluation in the emergency department. Vital signs reviewed. Blood pressure 79/45, heart rate 82, respiratory rate 18, and SpO2 of 96% on room air. Labs completed and reviewed. CBC showing macrocytic hyperchromic anemia with hemoglobin of 11.0. Coagulation profile revealing elevated PT of 12.8 and INR 1.3. BMP revealing acute on chronic hyponatremia with sodium 121, chloride 88, bicarbonate 18, and severe hypoglycemia with glucose of 39. Liver profile revealing elevated AST of 198 and alkaline phosphatase of 227 and albumin of 2.6. Blood alcohol level was less than 10. A chest x-ray was completed negative for acute cardiopulmonary process. Patient was admitted under our services for symptomatic hypotension, acute on chronic hyponatremia and hypoglycemia. Physical exam: Patient seen and fully evaluated at bedside this morning. He has had no further episodes of hypoglycemia in greater than 48 hours. Patient states today he is feeling increasing diffuse abdominal discomfort as if he needs another paracentesis and was noticed to have increased ascites. Patient denies having any nausea or vomiting, but continues to have lack of appetite. Vital signs reviewed and stable. General: Nontoxic, no distress and appears stated age. Patient with bruising/ecchymosis surrounding the left orbital region and side of forehead Derm: Skin warm and dry, normal coloration for ethnicity. Patient with multiple bruises and scabs covering upper extremities. Patient with skin tear on bilateral arms Head: Atraumatic, normocephalic and symmetric. Eyes: EOMs intact, no lid lag, and anicteric sclera Mouth: no lip lesions, mucus membranes moist Cardiovascular: regular rate and rhythm with normal S1S2, systolic murmur, positive posterior tibial pulses bilaterally, and cap refill < 2 seconds. Lungs: Respirations even, regular, and unlabored on room air. Lungs CTA bilaterally, no rhonchi, no rales, no wheezing, and no accessory muscle usage. Abdominal: Cirrhotic abdomen, nontender to palpation, no guarding, no appreciable organomegaly Ext: ROM intact. No gross muscle atrophy, 2-3+ pitting bilateral lower extremity edema, no contractures Neuro: Speech clear, face symmetrical and CN II-XII grossly intact with no noted focal neuro deficits Psych: Alert and oriented to person, place, time, and situation. Appropriate and pleasant affect. Assessment and Plan of Care: Symptomatic hypotension Alcoholic liver cirrhosis, decompensated with continued alcohol use Acute on chronic hyponatremia, believed to be secondary to decompensated cirrhosis with ascites along with poor oral intake. Improved Bicytopenia secondary to chronic long-term alcohol use and alcoholic hepatitis -Nephrology following secondary to acute on chronic hyponatremia and discussed plan of care with Dr. Ribera -Morning sodium 134 -Continue glucose checks ACHS and 2 AM -Continue to encourage oral intake along with protein supplements 3 times daily between meals. -Continue with half an amp of D50 or 25 mL as needed for glucose less than 70 and 1 amp or 50 mL of D50 as needed for glucose less than 50. -Seizure precautions and fall precautions to continue. -Midodrine to continue at 10 mg every 6 hours for treatment of persistent hypotension. -Secondary to increasing ascitic fluid and patient now complains of abdominal discomfort, order placed for consult to interventional radiology for paracentesis. Urinary retention -Continue Campa catheter care. Unable to place patient on Flomax secondary to persistent hypotension. -Patient to likely be discharged with urinary catheter in place and outpatient follow-up with urology. Hypokalemia, resolved Hypomagnesemia, resolved Reported Unwitnessed Fall -Fall precautions to remain in place. 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 Long-standing history of alcohol abuse, patient reports cutting back to 3 beers every other day over the last few months. -Continue monitoring CIWA scores to continue and patient to be medicated with Ativan 0.5 mg every 4 hours as needed for CIWA score of 4-5, Ativan 1 mg every 4 hours for CIWA score of 6-7, Ativan 2 mg every 3 hours CIWA score of 8-9, and Ativan 2 mg every 2 hours forr CIWA score of 10 or greater. -Patient has not required any symptom triggered benzodiazepine treatment since arrival to our facility, reports last drink was 04/28/23. CIWA score 0. Hypoglycemia, resolved -Blood glucose levels over the past 24 hours have ranged from 112-168 Nicotine dependence. -Nicotine patch 21 mg daily, patient encouraged to stop smoking. Imaging reviewed: No new imaging available for review. Data reviewed: Vital signs reviewed and stable. Blood pressure 95/61, heart rate 106, respiratory rate 18, temp 98.4F, and SpO2 of 95% on 2 L. Labs reviewed. CBC showing stable anemia with hemoglobin of 9.2 and continued thrombocytopenia with platelet count of 92. BMP revealing stable sodium of 134 and resolution of previous noted hypokalemia with potassium increasing to 3.9 as well as resolution of previous hypomagnesemia with current magnesium of 2.1. Liver enzymes remain elevated with AST of 97 and alkaline phosphatase of 212. CODE STATUS: Full code DVT prophylaxis: Lovenox Discussed with: Patient, RN, and shotgun shell reprinting unit operator Anticipated discharge date: Clinical course to determine Anticipated discharge place: Home Patient was seen independently by Nurse Practitioner. This document was prepared using [employer] ([employer] dictation software. Please allow for errors in christian science practitioner while rare they do occur. Von Samuel NP rendered care for this patient independently, reviewed the findings and plan as documented in the note above. I did not physically speak with or examine the patient on this date. Objective - Vital Signs Vital signs: Vital Signs Temp 98.4 F 05/03/23 07:00 Pulse 88 05/03/23 07:00 Resp 18 05/03/23 07:00 BP 90/53 05/03/23 07:00 Pulse Ox 93 L 05/03/23 07:00 FiO2 Intake & Output 08/11/23 08/12/23 08/12/23 18:59 06:59 18:59 Intake Total 1434 240 Output Total 800 250 Balance 634 -10 Weight 68.039 kg Intake: Oral 1434 240 Output: Urine 800 250 Other: Voiding Method Indwelling Catheter Indwelling Catheter # Bowel Movements 0 - Labs CBC & Chem 7: 05/04/23 08:33 05/05/23 10:16 Labs: Abnormal Lab Results - Last 24 Hours (Table) 05/02/23 05/02/23 05/02/23 Range/Units 07:05 07:05 11:11 RBC 2.61 L (4.40-5.60) X 10*6/uL Hgb 9.0 L (13.0-17.0) d/dL Hct 28.3 L (39.6-50.0) % MCV 108.4 H (80.0-97.0) FL MCH 34.5 H (27.0-32.0) pg MCHC 31.8 L (32.0-37.0) d/dL RDW 15.6 H (11.5-14.5) % Plt Count 92 L (140-440) X 10*3/uL MPV 12.7 H (9.5-12.2) FL Sodium 133 L (135-145) mmol/L Potassium 3.3 L (3.5-5.5) mmol/L Creatinine 0.5 L (0.6-1.5) mg/dL POC Glucose (mg/dL) 117 H (70-110) mg/dL Calcium 7.6 L (8.7-10.3) mg/dL AST 109 H (14-35) U/L Alkaline Phosphatase 198 H (41-126) U/L Total Protein 4.4 L (6.2-8.2) d/dL Albumin 2.3 L (3.8-4.9) d/dL Albumin/Globulin Ratio 1.10 L (1.60-3.17) Ratio 05/02/23 05/02/23 05/03/23 Range/Units 16:11 20:36 02:14 RBC (4.40-5.60) X 10*6/uL Hgb (13.0-17.0) d/dL Hct (39.6-50.0) % MCV (80.0-97.0) FL MCH (27.0-32.0) pg MCHC (32.0-37.0) d/dL RDW (11.5-14.5) % Plt Count (140-440) X 10*3/uL MPV (9.5-12.2) FL Sodium (135-145) mmol/L Potassium (3.5-5.5) mmol/L Creatinine (0.6-1.5) mg/dL POC Glucose (mg/dL) 161 H 131 H 168 H (70-110) mg/dL Calcium (8.7-10.3) mg/dL AST (14-35) U/L Alkaline Phosphatase (41-126) U/L Total Protein (6.2-8.2) d/dL Albumin (3.8-4.9) d/dL Albumin/Globulin Ratio (1.60-3.17) Ratio 05/03/23 Range/Units 05:53 RBC (4.40-5.60) X 10*6/uL Hgb (13.0-17.0) d/dL Hct (39.6-50.0) % MCV (80.0-97.0) FL MCH (27.0-32.0) pg MCHC (32.0-37.0) d/dL RDW (11.5-14.5) % Plt Count (140-440) X 10*3/uL MPV (9.5-12.2) FL Sodium (135-145) mmol/L Potassium (3.5-5.5) mmol/L Creatinine (0.6-1.5) mg/dL POC Glucose (mg/dL) 111 H (70-110) mg/dL Calcium (8.7-10.3) mg/dL AST (14-35) U/L Alkaline Phosphatase (41-126) U/L Total Protein (6.2-8.2) d/dL Albumin (3.8-4.9) d/dL Albumin/Globulin Ratio (1.60-3.17) Ratio
[2023-05-03 16:35] LABS: Glucose,Whole Blood 155 mg/dL (70-110)
[2023-05-03 20:39] LABS: Glucose,Whole Blood 161 mg/dL (70-110)
[2023-05-04 01:50] LABS: Glucose,Whole Blood 98 mg/dL (70-110)
[2023-05-04 05:58] LABS: Glucose,Whole Blood 98 mg/dL (70-110)
[2023-05-04] MEDS: MIDODRINE 5 MG TAB PO SCH ×3 (06:11→17:49)
[2023-05-04] MEDS: ENOXAPARIN 40 MG/0.4 ML SYRINGE SQ SCH (08:43)
[2023-05-04] MEDS: FOLIC ACID 1 MG TAB PO SCH (08:44)
[2023-05-04] MEDS: MULTIVITAMINS, THERA 1 EACH TAB PO SCH (08:44)
[2023-05-04] MEDS: KETOROLAC 15 MG/ML 1 ML VIAL IVP PRN (08:44)
[2023-05-04] MEDS: THIAMINE 100 MG TAB PO SCH (08:44)
[2023-05-04] MEDS: NICOTINE 21MG/24HR PATCH TRANSDERM SCH (08:45)
[2023-05-04 10:41] LABS: Anisocytosis Slight; HCT 27.9 % (39.0-53.0); Hypochromasia Slight; MCH 36.5 pg (25.0-35.0); MCHC 32.5 g/dL (31.0-37.0); MCV 112.3 fL (80.0-100.0); Macrocytosis Marked; Mean Platelet Volume 11.2; RBC 2.49 m/uL (4.30-5.90); RDW 16.8 % (11.5-15.5); WBC 5.8 k/uL (3.8-10.6)
[2023-05-04 10:42] LABS: ALT 38 U/L (4-49); AST 98 U/L (17-59); African American GFR (CKD) >90 (>60 ml/min/1.73 sqM); Albumin 2.1 g/dL (3.5-5.0); Albumin/Globulin Ratio 0.8; Alkaline Phosphatase 224 U/L (38-126); Anion Gap 5 mmol/L; Blood Urea Nitrogen 13 mg/dL (9-20); Calcium 7.6 mg/dL (8.4-10.2); Carbon Dioxide 24 mmol/L (22-30); Chloride 102 mmol/L (98-107); Globulin 2.7 g/dL; Glucose 82 mg/dL (74-99); Non-African American GFR(CKD) >90 (>60 ml/min/1.73 sqM); Potassium 3.7 mmol/L (3.5-5.1); Sodium 131 mmol/L (137-145); Total Protein 4.8 g/dL (6.3-8.2)
[2023-05-04 11:08] LABS: Glucose,Whole Blood 120 mg/dL (70-110)
[2023-05-04 11:25] LABS: HGB 9.1 gm/dL (13.0-17.5)
--- NOTE | 2023-05-04 12:17 | P.PN ---
Subjective Patient is seen in follow-up for hyponatremia. Oral intake is poor. Campa catheter placed for urinary retention. Sodium at 131 today Maintained on fluid restriction. Currently not on IV fluids or diuretics. Scheduled for paracentesis tomorrow Objective - Vital Signs Vital signs: Vital Signs Temp 98.3 F 05/04/23 06:55 Pulse 79 05/04/23 06:55 Resp 18 05/04/23 06:55 BP 85/55 05/04/23 06:55 Pulse Ox 99 05/04/23 08:03 FiO2 Intake & Output 05/03/23 05/04/23 05/04/23 18:59 06:59 18:59 Output Total 780 300 Balance -780 -300 Output: Urine 780 300 Other: Voiding Method Indwelling Catheter Indwelling Catheter Indwelling Catheter # Bowel Movements 1 - Exam Awake, comfortable, no acute distress Examination of the heart S1 and S2 Examination of the lungs bilateral breath sounds are heard Abdomen is soft, distended with ascites. Examination of lower extremities shows no evidence of edema QUALITY CONTROL INSPECTOR exam grossly intact - Labs CBC & Chem 7: 05/04/23 08:33 05/04/23 08:33 Labs: Abnormal Lab Results - Last 24 Hours (Table) 05/03/23 05/03/23 05/04/23 Range/Units 16:34 20:39 08:33 RBC 2.49 L (4.30-5.90) m/uL Hgb 9.1 L D (13.0-17.5) gm/dL Hct 27.9 L (39.0-53.0) % MCV 112.3 H (80.0-100.0) fL MCH 36.5 H (25.0-35.0) pg RDW 16.8 H (11.5-15.5) % Macrocytosis Marked A Sodium (137-145) mmol/L Creatinine (0.66-1.25) mg/dL POC Glucose (mg/dL) 155 H 161 H (70-110) mg/dL Calcium (8.4-10.2) mg/dL AST (17-59) U/L Alkaline Phosphatase (38-126) U/L Total Protein (6.3-8.2) g/dL Albumin (3.5-5.0) g/dL 05/04/23 05/04/23 Range/Units 08:33 11:06 RBC (4.30-5.90) m/uL Hgb (13.0-17.5) gm/dL Hct (39.0-53.0) % MCV (80.0-100.0) fL MCH (25.0-35.0) pg RDW (11.5-15.5) % Macrocytosis Sodium 131 L (137-145) mmol/L Creatinine 0.48 L (0.66-1.25) mg/dL POC Glucose (mg/dL) 120 H (70-110) mg/dL Calcium 7.6 L (8.4-10.2) mg/dL AST 98 H (17-59) U/L Alkaline Phosphatase 224 H (38-126) U/L Total Protein 4.8 L (6.3-8.2) g/dL Albumin 2.1 L (3.5-5.0) g/dL Assessment and Plan Assessment: 1. Hypovolemic hyponatremia improved with IV hydration. Component of poor solute intake. Sodium level 121 on admission - at 134-131 now. Urine sodium less than 20 and urine osmolality 201. TSH slightly elevated at 5.85. 2. Hypokalemia from poor intake and diuresis. Replaced. 3. Alcohol-induced liver cirrhosis. Small to moderate ascites noted on ultrasound. 4. Hypoglycemia, improved. 5. Hypotension due to hypovolemia and underlying liver cirrhosis. On midodrine. Cortisol level not low. 6. Urinary retention. Campa catheter placed. Plan: Continue to hold diuretics Paracentesis in a.m. Repeat sodium in a.m. Continue with midodrine Maintained fluid restriction at 1500 mL.
[2023-05-04 14:11] LABS: Platelet Count 77 k/uL (150-450)
[2023-05-04 16:12] LABS: Glucose,Whole Blood 81 mg/dL (70-110)
--- NOTE | 2023-05-04 17:30 | P.PN ---
Subjective Progress Note Date: 05/04/23 Hospital course: Patient is a very pleasant 57-year-old male with a past medical history of alcoholic liver cirrhosis, continued alcohol use reporting drinking randal roximately 3 beers every other day, and nicotine dependence. Patient reports last paracentesis was 04/21/23 with removal of 4.5 L of fluid and last alcoholic beverage being 04/28/23. Patient presented to the emergency department via EMS secondary to reports of weakness and recurrent falls. Patient was initially thought to have been intoxicated however patient was found to be hypoglycemic with blood glucose of 39 and hypotensive with blood pressure 79/45. Patient reports that he takes midodrine 10 mg 3 times daily for treatment of his chronic hypotension resulting from advanced liver cirrhosis, but reports he has not taken this medication in a couple of days. Patient did report that he felt weak and dizzy, but denies having any falls or loss of consciousness and denies hitting his head. No obvious injury noted at this time. Patient underwent full evaluation in the emergency department. Vital signs reviewed. Blood pressure 79/45, heart rate 82, respiratory rate 18, and SpO2 of 96% on room air. Labs completed and reviewed. CBC showing macrocytic hyperchromic anemia with hemoglobin of 11.0. Coagulation profile revealing elevated PT of 12.8 and INR 1.3. BMP revealing acute on chronic hyponatremia with sodium 121, chloride 88, bicarbonate 18, and severe hypoglycemia with glucose of 39. Liver profile revealing elevated AST of 198 and alkaline phosphatase of 227 and albumin of 2.6. Blood alcohol level was less than 10. A chest x-ray was completed negative for acute cardiopulmonary process. Patient was admitted under our services for symptomatic hypotension, acute on chronic hyponatremia and hypoglycemia. Physical exam: Patient seen and fully evaluated at bedside this morning. Patient continues to have noted increase in ascites with cirrhotic abdomen, upon examination he was nontender to palpation however patient was just medicated for pain with Toradol and reports intermittent diffuse abdominal tenderness. Blood glucose levels have remained stable with no further episodes of hypoglycemia in 72 hours. Vital signs reviewed and stable. General: Nontoxic, no distress and appears stated age. Patient with bruising/ ecchymosis surrounding the left orbital region and side of forehead Derm: Skin warm and dry, normal coloration for ethnicity. Patient with multiple bruises and scabs covering upper extremities. Patient with skin tear on bilateral arms Head: Atraumatic, normocephalic and symmetric. Eyes: EOMs intact, no lid lag, and anicteric sclera Mouth: no lip lesions, mucus membranes moist Cardiovascular: regular rate and rhythm with normal S1S2, systolic murmur, positive posterior tibial pulses bilaterally, and cap refill < 2 seconds. Lungs: Respirations even, regular, and unlabored on room air. Lungs CTA bilaterally, no rhonchi, no rales, no wheezing, and no accessory muscle usage. Abdominal: Cirrhotic abdomen, nontender to palpation, no guarding, no appreciable organomegaly Ext: ROM intact. No gross muscle atrophy, 2-3+ pitting bilateral lower extremity edema, no contractures Neuro: Speech clear, face symmetrical and CN II-XII grossly intact with no noted focal neuro deficits Psych: Alert and oriented to person, place, time, and situation. Appropriate and pleasant affect. Assessment and Plan of Care: Symptomatic hypotension, hypotension is secondary to decompensated cirrhosis Alcoholic liver cirrhosis, decompensated with continued alcohol use Acute on chronic hyponatremia, believed to be secondary to decompensated cirrhosis with ascites along with poor oral intake. Improved Bicytopenia secondary to chronic long-term alcohol use and cirrhosis of liver -Nephrology following secondary to acute on chronic hyponatremia and discussed plan of care with Dr. Ribera -Morning sodium 131 -Continue glucose checks ACHS and 2 AM, no further episodes of hypoglycemia over the past 72 hours. Blood glucose levels ranging from 82-161 over the past 24 hours. -Continue to encourage oral intake along with protein supplements 3 times daily between meals. Patient continues to eat approximately 25% of meals only. -Continue with half an amp of D50 or 25 mL as needed for glucose less than 70 and 1 amp or 50 mL of D50 as needed for glucose less than 50. -Seizure precautions and fall precautions to continue. -Midodrine to continue at 10 mg every 6 hours for treatment of persistent hypotension. -Order was placed for consult to interventional radiology for paracentesis after development of abdominal pain and increasing ascites. Urinary retention -Continue Campa catheter care. Unable to place patient on Flomax secondary to persistent hypotension. -Patient to likely be discharged with urinary catheter in place and outpatient follow-up with urology. Hypokalemia, resolved Hypomagnesemia, resolved Reported Unwitnessed Fall -Fall precautions to remain in place. 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 Long-standing history of alcohol abuse, patient reports cutting back to 3 beers every other day over the last few months. -Continue monitoring CIWA scores to continue and patient to be medicated with Ativan 0.5 mg every 4 hours as needed for CIWA score of 4-5, Ativan 1 mg every 4 hours for CIWA score of 6-7, Ativan 2 mg every 3 hours CIWA score of 8-9, and Ativan 2 mg every 2 hours forr CIWA score of 10 or greater. -Patient has not required any symptom triggered benzodiazepine treatment since arrival to our facility, reports last drink was 04/28/23. CIWA score 0. Hypoglycemia, resolved -Blood glucose levels over the past 24 hours have ranged from Nicotine dependence. -Nicotine patch 21 mg daily, patient encouraged to stop smoking. Imaging reviewed: No new imaging available for review. Data reviewed: Vital signs reviewed Blood pressure 85/55, heart rate 79, respiratory rate 18, temp 98.3, and SpO2 of 99% on room air. Labs reviewed. CBC showing continued thrombocytopenia with platelet count of 77 persistent macrocytic anemia with hemoglobin of 9.1 and MCV of 112.3. BMP revealing hyponatremia with sodium of 131 otherwise unremarkable. Morning glucose 82. Liver profile showing elevated AST of 98 alkaline phosphatase of 224. Magnesium normal findings at 2.0. CODE STATUS: Full code DVT prophylaxis: Lovenox Discussed with: Patient, RN, and waste reduction coordinator Anticipated discharge date: Clinical course to determine Anticipated discharge place: Home Patient was seen independently by Nurse Practitioner. This document was prepared using [employer] dictation software. Please allow for errors in mailing machine operator while rare they do occur. I reviewed the documentation as provided by the RANDAL above, who is the original author of this note. I agree with the documented assessment and plan, with the following changes: none Objective - Vital Signs Vital signs: Vital Signs Temp 98.3 F 05/04/23 06:55 Pulse 79 05/04/23 06:55 Resp 18 05/04/23 06:55 BP 85/55 05/04/23 06:55 Pulse Ox 99 05/04/23 08:03 FiO2 Intake & Output 05/03/23 05/04/23 05/04/23 18:59 06:59 18:59 Output Total 780 300 Balance -780 -300 Output: Urine 780 300 Other: Voiding Method Indwelling Catheter Indwelling Catheter # Bowel Movements 1 - Labs CBC & Chem 7: 05/04/23 08:33 05/04/23 08:33 Labs: Abnormal Lab Results - Last 24 Hours (Table) 05/03/23 05/03/23 05/03/23 Range/Units 04:29 04:32 11:17 RBC 2.61 L (4.40-5.60) X 10*6/uL Hgb 9.2 L (13.0-17.0) d/dL Hct 28.0 L (39.6-50.0) % MCV 107.3 H (80.0-97.0) FL MCH 35.2 H (27.0-32.0) pg RDW 16.2 H (11.5-14.5) % Plt Count 96 L (140-440) X 10*3/uL MPV 12.5 H (9.5-12.2) FL Sodium 134 L (135-145) mmol/L Creatinine 0.5 L (0.6-1.5) mg/dL BUN/Creatinine Ratio 26.20 H (12.00-20.00) Ratio POC Glucose (mg/dL) 126 H (70-110) mg/dL Calcium 7.9 L (8.7-10.3) mg/dL AST 97 H (14-35) U/L Alkaline Phosphatase 212 H (41-126) U/L Total Protein 4.6 L (6.2-8.2) d/dL Albumin 2.5 L (3.8-4.9) d/dL Albumin/Globulin Ratio 1.19 L (1.60-3.17) Ratio 05/03/23 05/03/23 Range/Units 16:34 20:39 RBC (4.40-5.60) X 10*6/uL Hgb (13.0-17.0) d/dL Hct (39.6-50.0) % MCV (80.0-97.0) FL MCH (27.0-32.0) pg RDW (11.5-14.5) % Plt Count (140-440) X 10*3/uL MPV (9.5-12.2) FL Sodium (135-145) mmol/L Creatinine (0.6-1.5) mg/dL BUN/Creatinine Ratio (12.00-20.00) Ratio POC Glucose (mg/dL) 155 H 161 H (70-110) mg/dL Calcium (8.7-10.3) mg/dL AST (14-35) U/L Alkaline Phosphatase (41-126) U/L Total Protein (6.2-8.2) d/dL Albumin (3.8-4.9) d/dL Albumin/Globulin Ratio (1.60-3.17) Ratio
[2023-05-04 20:56] LABS: Glucose,Whole Blood 132 mg/dL (70-110)
[2023-05-04] MEDS ORDERED: MIDODRINE 5 MG TAB PO STA (22:33)
[2023-05-05] MEDS: MIDODRINE 5 MG TAB PO SCH ×4 (00:50→18:19)
[2023-05-05] MEDS: KETOROLAC 15 MG/ML 1 ML VIAL IVP PRN (00:57)
[2023-05-05 02:25] LABS: Glucose,Whole Blood 105 mg/dL (70-110)
[2023-05-05 06:09] LABS: Glucose,Whole Blood 89 mg/dL (70-110)
[2023-05-05] MEDS: THIAMINE 100 MG TAB PO SCH (10:23)
[2023-05-05] MEDS: NICOTINE 21MG/24HR PATCH TRANSDERM SCH (10:24)
[2023-05-05] MEDS: MULTIVITAMINS, THERA 1 EACH TAB PO SCH (10:24)
[2023-05-05] MEDS: ENOXAPARIN 40 MG/0.4 ML SYRINGE SQ SCH (10:24)
[2023-05-05] MEDS: FOLIC ACID 1 MG TAB PO SCH (10:24)
[2023-05-05 11:25] LABS: Glucose,Whole Blood 82 mg/dL (70-110)
[2023-05-05 11:28] LABS: African American GFR (CKD) >90 (>60 ml/min/1.73 sqM); Anion Gap 3 mmol/L; Blood Urea Nitrogen 19 mg/dL (9-20); Calcium 7.5 mg/dL (8.4-10.2); Carbon Dioxide 25 mmol/L (22-30); Chloride 103 mmol/L (98-107); Glucose 71 mg/dL (74-99); Non-African American GFR(CKD) >90 (>60 ml/min/1.73 sqM); Potassium 4.1 mmol/L (3.5-5.1); Sodium 131 mmol/L (137-145)
--- NOTE | 2023-05-05 13:12 | P.PN ---
Subjective Patient is seen in follow-up for hyponatremia. Oral intake is poor. Campa catheter placed for urinary retention. Sodium at 131 today Maintained on fluid restriction. Currently not on IV fluids or diuretics. Scheduled for paracentesis today. Urine output has been on the lower side most likely related to his severe ascites and intra-abdominal hypertension. Objective - Vital Signs Vital signs: Vital Signs Temp 98.9 F 05/05/23 01:16 Pulse 82 05/05/23 07:40 Resp 19 05/05/23 07:40 BP 82/44 05/05/23 06:18 Pulse Ox 95 05/05/23 01:16 FiO2 Intake & Output 05/04/23 05/05/23 05/05/23 18:59 06:59 18:59 Intake Total 1200 Output Total 200 200 Balance 1000 -200 Intake: Oral 1200 Output: Urine 200 200 Other: Voiding Method Indwelling Catheter Indwelling Catheter Indwelling Catheter - Exam Awake, comfortable, no acute distress Examination of the heart S1 and S2 Examination of the lungs bilateral breath sounds are heard Abdomen is soft, distended with ascites. 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 Hypovolemic hyponatremia improved with IV hydration. Component of poor solute intake. Sodium level 121 on admission - at 134-131 now. Urine sodium less than 20 and urine osmolality 201. TSH slightly elevated at 5.85. 2. Hypokalemia from poor intake and diuresis. Replaced. 3. Alcohol-induced liver cirrhosis. Small to moderate ascites noted on ultrasound. 4. Hypoglycemia, improved. 5. Hypotension due to hypovolemia and underlying liver cirrhosis. On midodrine. Cortisol level not low. 6. Urinary retention. Campa catheter placed. Plan: Will need to be very careful with Toradol given the persistent hypotension and increase risk of acute kidney injury. Serum creatinine is currently at 0.72. We will continue to monitor closely. Continue to hold diuretics Paracentesis Repeat sodium in a.m. Continue with midodrine Maintained fluid restriction at 1500 mL.
[2023-05-05] MEDS: ALBUMIN HUMAN 25% 50 ML in EMPTY BAG 1 BAG IVPB SCH ×2 (14:31→14:43)
[2023-05-05 16:37] LABS: Glucose,Whole Blood 76 mg/dL (70-110)
--- NOTE | 2023-05-05 17:21 | P.PN ---
Subjective Progress Note Date: 05/05/23 Hospital course: Patient is a very pleasant 57-year-old male with a past medical history of alcoholic liver cirrhosis, continued alcohol use reporting drinking randal roximately 3 beers every other day, and nicotine dependence. Patient reports last paracentesis was 04/21/23 with removal of 4.5 L of fluid and last alcoholic beverage being 04/28/23. Patient presented to the emergency department via EMS secondary to reports of weakness and recurrent falls. Patient was initially thought to have been intoxicated however patient was found to be hypoglycemic with blood glucose of 39 and hypotensive with blood pressure 79/45. Patient reports that he takes midodrine 10 mg 3 times daily for treatment of his chronic hypotension resulting from advanced liver cirrhosis, but reports he has not taken this medication in a couple of days. Patient did report that he felt weak and dizzy, but denies having any falls or loss of consciousness and denies hitting his head. No obvious injury noted at this time. Patient underwent full evaluation in the emergency department. Vital signs reviewed. Blood pressure 79/45, heart rate 82, respiratory rate 18, and SpO2 of 96% on room air. Labs completed and reviewed. CBC showing macrocytic hyperchromic anemia with hemoglobin of 11.0. Coagulation profile revealing elevated PT of 12.8 and INR 1.3. BMP revealing acute on chronic hyponatremia with sodium 121, chloride 88, bicarbonate 18, and severe hypoglycemia with glucose of 39. Liver profile revealing elevated AST of 198 and alkaline phosphatase of 227 and albumin of 2.6. Blood alcohol level was less than 10. A chest x-ray was completed negative for acute cardiopulmonary process. Patient was admitted under our services for symptomatic hypotension, acute on chronic hyponatremia and hypoglycemia. Nephrology has been following along. Patient scheduled to und ergo paracentesis later today. Physical exam: Patient seen and fully evaluated at bedside this morning. Patient was sitting up in the chair this morning. He is awaiting to go down for scheduled paracentesis. Reports continued diffuse abdominal discomfort at this time but denies current pain. Patient does report increased appetite yesterday and states that he was eating a little better. Vital signs reviewed and stable. General: Nontoxic, no distress and appears stated age. Patient with bruising/ecchymosis surrounding the left orbital region and side of forehead Derm: Skin warm and dry, normal coloration for ethnicity. Patient with multiple bruises and scabs covering upper extremities. Patient with skin tear on bilateral arms Head: Atraumatic, normocephalic and symmetric. Eyes: EOMs intact, no lid lag, and anicteric sclera Mouth: no lip lesions, mucus membranes moist Cardiovascular: regular rate and rhythm with normal S1S2, systolic murmur, positive posterior tibial pulses bilaterally, and cap refill < 2 seconds. Lungs: Respirations even, regular, and unlabored on room air. Lungs CTA bilaterally, no rhonchi, no rales, no wheezing, and no accessory muscle usage. Abdominal: Cirrhotic abdomen, nontender to palpation, no guarding, no appreciable organomegaly Ext: ROM intact. No gross muscle atrophy, 2-3+ pitting bilateral lower extremity edema, no contractures Neuro: Speech clear, face symmetrical and CN II-XII grossly intact with no noted focal neuro deficits Psych: Alert and oriented to person, place, time, and situation. Appropriate and pleasant affect. Assessment and Plan of Care: Symptomatic hypotension, hypotension is secondary to decompensated cirrhosis Alcoholic liver cirrhosis, decompensated with continued alcohol use Acute on chronic hyponatremia, believed to be secondary to decompensated cirrhosis with ascites along with poor oral intake. Improved Bicytopenia secondary to chronic long-term alcohol use and cirrhosis of liver -Nephrology following secondary to acute on chronic hyponatremia and discussed plan of care with Dr. Ribera -Morning sodium 131 -Continue glucose checks ACHS and 2 AM, no further episodes of hypoglycemia over the past 96 hours. Blood glucose levels ranging from 81 up to 132 over the past 24 hours. -Continue to encourage oral intake along with protein supplements 3 times daily between meals. Dietitian following. -Continue with half an amp of D50 or 25 mL as needed for glucose less than 70 and 1 amp or 50 mL of D50 as needed for glucose less than 50. -Seizure precautions and fall precautions to continue. -Midodrine to continue at 10 mg every 6 hours for treatment of persistent hypotension. -Order was placed for consult to interventional radiology for paracentesis and patient is scheduled to undergo paracentesis later today. -Order placed for albumin 25 g IVPB in preparation for patient undergo parac entesis. Urinary retention -Continue Campa catheter care. Unable to place patient on Flomax secondary to persistent hypotension. -Patient to likely be discharged with urinary catheter in place and outpatient follow-up with urology. Hypokalemia, resolved Hypomagnesemia, resolved Reported Unwitnessed Fall during hospitalization -Fall precautions to remain in place. 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 Long-standing history of alcohol abuse, patient reports cutting back to 3 beers every other day over the last few months. -Patient was initially placed on CIWA protocol, however he has not required any symptom triggered benzodiazepine treatment since arrival to our facility, reports last drink was 04/28/23. CIWA score 0. Hypoglycemia, resolved -Blood glucose levels ranging from 81 up to 132 over the past 24 hours. Nicotine dependence. -Nicotine patch 21 mg daily, patient encouraged to stop smoking. Imaging reviewed: No new imaging available for review. Data reviewed: Vital signs reviewed Blood pressure 82/44, heart rate 82, respiratory rate 19, temperature 98.9F, and SpO2 of 95% on room air. Labs reviewed. BMP revealing hyponatremia stable with sodium of 131 otherwise normal findings. Blood glucose levels ranging from 81 up to 132 over the past 24 hours. CODE STATUS: Full code DVT prophylaxis: Lovenox Discussed with: Patient, RN, and drafter (cad) electrical Anticipated discharge date: Clinical course to determine Anticipated discharge place: Home Patient was seen independently by Nurse Practitioner. This document was prepared using [employer] dictation software. Please allow for errors in engineer second assistant while rare they do occur. I reviewed the documentation as provided by the RANDAL above, who is the original author of this note. I agree with the documented assessment and plan, with the following changes: none Objective - Vital Signs Vital signs: Vital Signs Temp 98.9 F 05/05/23 01:16 Pulse 82 05/05/23 01:16 Resp 19 05/05/23 01:16 BP 82/44 05/05/23 06:18 Pulse Ox 95 05/05/23 01:16 FiO2 Intake & Output 05/04/23 05/05/23 05/05/23 18:59 06:59 18:59 Intake Total 1200 Output Total 200 200 Balance 1000 -200 Intake: Oral 1200 Output: Urine 200 200 Other: Voiding Method Indwelling Catheter Indwelling Catheter - Labs CBC & Chem 7: 05/04/23 08:33 05/05/23 10:16 Labs: Abnormal Lab Results - Last 24 Hours (Table) 05/04/23 05/04/23 05/04/23 Range/Units 08:33 08:33 11:06 RBC 2.49 L (4.30-5.90) m/uL Hgb 9.1 L D (13.0-17.5) gm/dL Hct 27.9 L (39.0-53.0) % MCV 112.3 H (80.0-100.0) fL MCH 36.5 H (25.0-35.0) pg RDW 16.8 H (11.5-15.5) % Plt Count 77 L D (150-450) k/uL Macrocytosis Marked A Sodium 131 L (137-145) mmol/L Creatinine 0.48 L (0.66-1.25) mg/dL POC Glucose (mg/dL) 120 H (70-110) mg/dL Calcium 7.6 L (8.4-10.2) mg/dL AST 98 H (17-59) U/L Alkaline Phosphatase 224 H (38-126) U/L Total Protein 4.8 L (6.3-8.2) g/dL Albumin 2.1 L (3.5-5.0) g/dL 05/04/23 Range/Units 20:55 RBC (4.30-5.90) m/uL Hgb (13.0-17.5) gm/dL Hct (39.0-53.0) % MCV (80.0-100.0) fL MCH (25.0-35.0) pg RDW (11.5-15.5) % Plt Count (150-450) k/uL Macrocytosis Sodium (137-145) mmol/L Creatinine (0.66-1.25) mg/dL POC Glucose (mg/dL) 132 H (70-110) mg/dL Calcium (8.4-10.2) mg/dL AST (17-59) U/L Alkaline Phosphatase (38-126) U/L Total Protein (6.3-8.2) g/dL Albumin (3.5-5.0) g/dL
[2023-05-05 20:47] LABS: Glucose,Whole Blood 104 mg/dL (70-110)
[2023-05-06] MEDS: MIDODRINE 5 MG TAB PO SCH ×4 (00:28→16:53)
[2023-05-06 01:52] LABS: Glucose,Whole Blood 99 mg/dL (70-110)
[2023-05-06 06:22] LABS: Glucose,Whole Blood 118 mg/dL (70-110)
[2023-05-06] MEDS: ENOXAPARIN 40 MG/0.4 ML SYRINGE SQ SCH (07:58)
[2023-05-06] MEDS: FOLIC ACID 1 MG TAB PO SCH (07:58)
[2023-05-06] MEDS: MULTIVITAMINS, THERA 1 EACH TAB PO SCH (07:58)
[2023-05-06] MEDS: THIAMINE 100 MG TAB PO SCH (07:58)
[2023-05-06] MEDS: NICOTINE 21MG/24HR PATCH TRANSDERM SCH (07:58)
--- NOTE | 2023-05-06 09:18 | US ---
Ultrasound-guided paracentesis. DATE OF EXAM: 05/05/2023 CLINICAL HISTORY: Ascites The procedure was discussed with the patient. The risks, complications, benefits, and alternatives we re discussed and any questions were answered. Informed consent was obtained. The patient was placed s upine on the ultrasound table and prepped and draped in the usual sterile fashion. All elements of maximal barrier technique were utilized. Under ultrasound guidance, access into the right lower quadrant was obtained, via the paracentesis catheter system and direct ultrasound guidanc e. Approximately 4 liters of straw-colored fluid was removed. The patient was stable throughout the proc edure and remained stable upon discharge from Department of Radiology. IMPRESSION: Successful paracentesis under ultrasound guidance.
[2023-05-06 09:21] LABS: ALT 39 U/L (10-49); AST 83 U/L (14-35); Albumin 2.3 d/dL (3.8-4.9); Albumin/Globulin Ratio 1.21 Ratio (1.60-3.17); Alkaline Phosphatase 206 U/L (41-126); BUN/Creat Ratio 24.83 Ratio (12.00-20.00); Blood Urea Nitrogen 14.9 mg/dL (9.0-27.0); Calcium 7.6 mg/dL (8.7-10.3); Chloride 108 mmol/L (96-109); Globulin 1.9 d/dL (1.6-3.3); Glucose 93 mg/dL (70-110); Magnesium 1.9 mg/dL (1.5-2.4); Potassium 3.6 mmol/L (3.5-5.5); Sodium 138 mmol/L (135-145); Total Bilirubin 0.4 mg/dL (0.3-1.2); Total Protein 4.2 d/dL (6.2-8.2)
[2023-05-06 09:28] LABS: HCT 27.6 % (39.6-50.0); HGB 8.5 d/dL (13.0-17.0); MCH 34.4 pg (27.0-32.0); MCHC 30.8 d/dL (32.0-37.0); MCV 111.7 FL (80.0-97.0); Mean Platelet Volume 12.3 FL (9.5-12.2); NRBC Per 100 WBC 0 X 10*3/uL (0.00-0.01); Platelet Count 106 X 10*3/uL (140-440); RBC 2.47 X 10*6/uL (4.40-5.60); RDW 16.6 % (11.5-14.5); WBC 9.58 X 10*3/uL (4.50-10.00)
[2023-05-06 11:58] LABS: Glucose,Whole Blood 112 mg/dL (70-110)
--- NOTE | 2023-05-06 13:27 | P.PN ---
Subjective Patient is seen in follow-up for hyponatremia. Oral intake is poor. Campa catheter placed for urinary retention. Sodium at 138 today Maintained on fluid restriction. Currently not on IV fluids or diuretics. Status post paracentesis of 4 L on 05/05/2023 No complaints today Objective - Vital Signs Vital signs: Vital Signs Temp 98.6 F 05/06/23 07:31 Pulse 96 05/06/23 07:31 Resp 14 05/06/23 07:31 BP 91/59 05/06/23 12:41 Pulse Ox 95 05/06/23 09:06 FiO2 Intake & Output 05/05/23 05/06/23 05/06/23 18:59 06:59 18:59 Intake Total 850 Output Total 400 310 Balance 450 -310 Weight 68.039 kg Intake: Oral 850 Output: Urine 400 310 Other: Voiding Method Indwelling Catheter Indwelling Catheter Indwelling Catheter # Bowel Movements 1 1 - Exam Awake, comfortable, no acute distress Examination of the heart S1 and S2 Examination of the lungs bilateral breath sounds are heard Abdomen is soft, Examination of lower extremities shows no evidence of edema MATERIAL REQUISITIONER exam grossly intact - Labs CBC & Chem 7: 05/06/23 04:45 05/06/23 04:45 Labs: Abnormal Lab Results - Last 24 Hours (Table) 05/06/23 05/06/23 05/06/23 Range/Units 04:45 04:45 06:20 RBC 2.47 L (4.40-5.60) X 10*6/uL Hgb 8.5 L (13.0-17.0) d/dL Hct 27.6 L (39.6-50.0) % MCV 111.7 H (80.0-97.0) FL MCH 34.4 H (27.0-32.0) pg MCHC 30.8 L (32.0-37.0) d/dL RDW 16.6 H (11.5-14.5) % Plt Count 106 L (140-440) X 10*3/uL MPV 12.3 H (9.5-12.2) FL BUN/Creatinine Ratio 24.83 H (12.00-20.00) Ratio POC Glucose (mg/dL) 118 H (70-110) mg/dL Calcium 7.6 L (8.7-10.3) mg/dL AST 83 H (14-35) U/L Alkaline Phosphatase 206 H (41-126) U/L Total Protein 4.2 L (6.2-8.2) d/dL Albumin 2.3 L (3.8-4.9) d/dL Albumin/Globulin Ratio 1.21 L (1.60-3.17) Ratio // Range/Units 11:56 RBC (4.40-5.60) X 10*6/uL Hgb (13.0-17.0) d/dL Hct (39.6-50.0) % MCV (80.0-97.0) FL MCH (27.0-32.0) pg MCHC (32.0-37.0) d/dL RDW (11.5-14.5) % Plt Count (140-440) X 10*3/uL MPV (9.5-12.2) FL BUN/Creatinine Ratio (12.00-20.00) Ratio POC Glucose (mg/dL) 112 H (70-110) mg/dL Calcium (8.7-10.3) mg/dL AST (14-35) U/L Alkaline Phosphatase (41-126) U/L Total Protein (6.2-8.2) d/dL Albumin (3.8-4.9) d/dL Albumin/Globulin Ratio (1.60-3.17) Ratio Assessment and Plan Assessment: 1. Hypovolemic hyponatremia improved with IV hydration. Component of poor solute intake. Sodium level 121 on admission - at 138 now. Urine sodium less than 20 and urine osmolality 201. TSH slightly elevated at 5.85. 2. Hypokalemia from poor intake and diuresis. Replaced. 3. Alcohol-induced liver cirrhosis. Small to moderate ascites noted on ultrasound. 4. Hypoglycemia, improved. 5. Hypotension due to hypovolemia and underlying liver cirrhosis. On midodrine. Cortisol level not low. 6. Urinary retention. Campa catheter placed. Plan: Will need to be very careful with Toradol given the persistent hypotension and increase risk of acute kidney injury. Serum creatinine is currently at 0.72. We will continue to monitor closely. Continue to hold diuretics Paracentesis Repeat sodium in a.m. Continue with midodrine Maintained fluid restriction at 1500 mL.
--- NOTE | 2023-05-06 15:43 | P.PN ---
Subjective Progress Note Date: 05/06/23 Hospital course: Patient is a very pleasant 57-year-old male with a past medical history of alcoholic liver cirrhosis, continued alcohol use reporting drinking randal roximately 3 beers every other day, and nicotine dependence. Patient reports last paracentesis was 04/21/23 with removal of 4.5 L of fluid and last alcoholic beverage being 04/28/23. Patient presented to the emergency department via EMS on 04/29/23 secondary to reports of weakness and recurrent falls. Patient was initially thought to have been intoxicated by EMS however patient was found to be hypoglycemic with blood glucose of 39 and hypotensive with blood pressure 79/45. Patient reports that he takes midodrine 10 mg 3 times daily for treatment of his chronic hypotension resulting from advanced liver cirrhosis, but reports he has not taken this medication in a couple of days. Patient did report that he felt weak and dizzy, but denies having any falls or loss of consciousness and denies hitting his head. No obvious injury noted at this time. Patient underwent full evaluation in the emergency department. Vital signs reviewed. Blood pressure 79/45, heart rate 82, respiratory rate 18, and SpO2 of 96% on room air. Labs completed and reviewed. CBC showing macrocytic hyperchromic anemia with hemoglobin of 11.0. Coagulation profile revealing elevated PT of 12.8 and INR 1.3. BMP revealing acute on chronic hyponatremia with sodium 121, chloride 88, bicarbonate 18, and severe hypoglycemia with glucose of 39. Liver profile revealing elevated AST of 198 and alkaline phosphatase of 227 and albumin of 2.6. Blood alcohol level was less than 10. A chest x-ray was completed negative for acute cardiopulmonary process. Patient was admitted under our services for symptomatic hypotension, acute on chronic hyponatremia and hypoglycemia. Nephrology has been following along and due to persistent difficulty controlling hypotension, oral lasix was discontinued. Patient underwent successful paracentesis with interventional radiology on 05/05/22 with removal of 4 L of fluid. He was given 25 g of albumin. He remains on midodrine 10 mg every 6 hours with blood pressures running low but currently stable ranging from 80s to low 100 systolic and 40s to 70s diastolic. Patient has not been evaluated by a tail sawyer does not follow a engineering technician. Gastroenterology was consulted for evaluation of this patient and appreciate their recommendations. Physical therapy has been following along with patient and recommending that patient will need subacute rehab upon discharge due to high risk of falls, decreased strength, and unsteadiness with ambulation. Case management has started insurance preauthorization for placement. Plan is for discharge to rehab for continued PT/OT. Physical exam: Patient seen and fully evaluated at bedside this morning. He was sitting up in the chair and appears to be doing well this morning. Patient does report some mild abdominal pain/cramping from paracentesis but otherwise denies any complai nts. Patient does report eating slightly more than the previous 25%. He denies any nausea or vomiting. Vital signs reviewed and stable. General: Nontoxic, no distress and appears stated age. Patient with bruising/ecchymosis surrounding the left orbital region and side of forehead Derm: Skin warm and dry, normal coloration for ethnicity. Patient with multiple bruises and scabs covering upper extremities. Patient with skin tear on bilateral arms Head: Atraumatic, normocephalic and symmetric. Eyes: EOMs intact, no lid lag, and anicteric sclera Mouth: no lip lesions, mucus membranes moist Cardiovascular: regular rate and rhythm with normal S1S2, systolic murmur, positive posterior tibial pulses bilaterally, and cap refill < 2 seconds. Lungs: Respirations even, regular, and unlabored on room air. Lungs CTA bilaterally, no rhonchi, no rales, no wheezing, and no accessory muscle usage. Abdominal: Cirrhotic abdomen, nontender to palpation, no guarding, no appreciable organomegaly Ext: ROM intact. No gross muscle atrophy, 1-2+ pitting bilateral lower extremity edema, no contractures Neuro: Speech clear, face symmetrical and CN II-XII grossly intact with no noted focal neuro deficits Psych: Alert and oriented to person, place, time, and situation. Appropriate and pleasant affect. Assessment and Plan of Care: Symptomatic hypotension, hypotension is secondary to decompensated cirrhosis Alcoholic liver cirrhosis, decompensated with continued alcohol use Acute on chronic hyponatremia, believed to be secondary to decompensated cir rhosis with ascites along with poor oral intake. Bicytopenia secondary to chronic long-term alcohol use and cirrhosis of liver Weakness and recurrent falls -Nephrology following secondary to acute on chronic hyponatremia and discussed plan of care with Dr. Ribera -Morning sodium 138 -Continue glucose checks ACHS and 2 AM, no further episodes of hypoglycemia over the past 96 hours. Blood glucose levels ranging from 81 up to 132 over the past 24 hours. -Continue to encourage oral intake along with protein supplements 3 times daily between meals. Dietitian following. -Continue with half an amp of D50 or 25 mL as needed for glucose less than 70 and 1 amp or 50 mL of D50 as needed for glucose less than 50. -Seizure precautions and fall precautions to continue. -Midodrine to continue at 10 mg every 6 hours for treatment of persistent hypotension. -Patient underwent successful paracentesis with interventional radiology on 05/05/22 with removal of 4 L of fluid. -He was given 25 g of albumin. -He remains on midodrine 10 mg every 6 hours with blood pressures running low but currently stable ranging from 80s to low 100 systolic and 40s to 70s diastolic. -Patient has not been evaluated by a tail sawyer and does not follow a engineering technician. Gastroenterology was consulted for evaluation of this patient and appreciate their recommendations. -Physical therapy has been following along with patient and recommending that patient will need subacute rehab upon discharge due to high risk of falls, decreased strength, and unsteadiness with ambulation. -Case management has started insurance preauthorization for placement. -Plan is for discharge to rehab for continued PT/OT. Urinary retention -Continue Campa catheter care. Unable to place patient on Flomax secondary to persistent hypotension. -Patient to likely be discharged with urinary catheter in place and outpatient follow-up with urology. Hypokalemia, resolved Hypomagnesemia, resolved Reported Unwitnessed Fall during hospitalization -Fall precautions to remain in place. 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 Long-standing history of alcohol abuse, patient reports cutting back to 3 beers every other day over the last few months. -Patient was initially placed on CIWA protocol, however he has not required any symptom triggered benzodiazepine treatment since arrival to our facility, reports last drink was 04/28/23. CIWA score 0. Hypoglycemia, resolved -Blood glucose levels ranging from 81 up to 132 over the past 24 hours. Nicotine dependence. -Nicotine patch 21 mg daily, patient encouraged to stop smoking. Imaging reviewed: No new imaging available for review. Data reviewed: Vital signs reviewed. Blood pressure 96/63, heart rate 96, respiratory rate 14, temp 98.6F, SpO2 of 98% on nasal cannula. Morning labs reviewed. CBC consistent showing bicytopenia with stable hemoglobin of 8.5 and platelet count of 106. BMP showing resolution of previous noted hyponatremia with sodium of 138. Potassium normal findings at 3.6 magnesium normal findings at 1.9 and liver profile remains elevated with AST of 83 and alkaline phosphatase of 206. CODE STATUS: Full code DVT prophylaxis: Lovenox Discussed with: Patient, RN, and gatroenterology CLASSIFIED AD CLERK Anticipated discharge date: Case management has started insurance preauthorization for placement. Anticipated discharge place: [facility] Patient was seen independently by Nurse Practitioner. This document was prepared using [employer] dictation software. Please allow for errors in carburizing furnace operator while rare they do occur. I reviewed the documentation as provided by the RANDAL above, who is the original author of this note. I agree with the documented assessment and plan, with the following changes: none Objective - Vital Signs Vital signs: Vital Signs Temp 98.3 F 05/06/23 02:00 Pulse 69 05/06/23 02:00 Resp 17 05/05/23 19:57 BP 85/49 05/06/23 04:00 Pulse Ox 99 05/06/23 02:00 FiO2 Intake & Output 05/05/23 05/06/23 05/06/23 18:59 06:59 18:59 Intake Total 850 Output Total 400 310 Balance 450 -310 Weight 68.039 kg Intake: Oral 850 Output: Urine 400 310 Other: Voiding Method Indwelling Catheter Indwelling Catheter # Bowel Movements 1 1 - Labs CBC & Chem 7: 05/06/23 04:45 05/06/23 04:45 Labs: Abnormal Lab Results - Last 24 Hours (Table) 05/05/23 05/06/23 Range/Units 10:16 06:20 Sodium 131 L (137-145) mmol/L Glucose 71 L (74-99) mg/dL POC Glucose (mg/dL) 118 H (70-110) mg/dL Calcium 7.5 L (8.4-10.2) mg/dL
--- NOTE | 2023-05-06 15:54 | P.CONS ---
History of Present Illness - Reason for Consult Consult date: 05/06/23 Decompensated cirrhosis of the liver Requesting physician: Von Samuel - Chief Complaint Confusion, weakness - History of Present Illness This a 57-year-old pleasant male who presented to the emergency department a week ago with complaints of weakness. He has a long-standing history of alcohol abuse. States that he started drinking when he was 13 years old and drinks 3-4 beers most days of the week. He was hospitalized a couple weeks ago and underwent CT of the abdomen and pelvis with findings suspicious of hepatic cirrhosis with nodular contour of the liver with trace bilateral pleural effusions, moderate to large abdominal ascites and hepatic colopathy. At that time he underwent paracentesis. He was subsequently discharged and readmitted the next day for weakness. . Over the last few days he had this weakness and was found to be hypotensive on admission. During the last discharge she was supposed to be taking that a drain for hypotension however patient is homeless and not following up with care. He was readmitted this admission underwent paracentesis yesterday with 4 L removed and albumin given. Gastroenterology was consulted for decompensated cirrhosis of the liver and further management of diuretics. Patient currently denies any abdominal pain, no nausea or vomiting. Patient is quite thin and unkept looking. He states he is homeless and essentially lives on [address]. He has a brother who lives in [place] but is not able to reside with him. Patient states he is still drinking he does not eat much although he states he does not drink daily. Labs WBC 9.5 hemoglobin 8.5 hematocrit 27 platelet count 106,000 sodium 138 potassium 3.6 BUN 14.9 creatinine 0.6 total bilirubin 0.4 AST 83 atrial to 39 alkaline phosphatase 206 Review of Systems REVIEW OF SYSTEMS: CARDIOPULMONARY: No chest pain or shortness of breath. Gastrointestinal: No abdominal pain. Some abdominal distention. No nausea or vomiting. No hematemesis, coffee-ground emesis. No rectal bleeding, or melena. GENITOURINARY: No dysuria or hematuria. MUSCULOSKELETAL: Reports normal range of motion., Weakness and recent fall. SKIN: No rashes. No jaundice. ENDOCRINE: No chills, fevers. No excessive weight gain or loss. No polydipsia or polyuria. PSYCHIATRIC: Unremarkable. NEUROLOGY: No change in mental status. Denies dizziness, headache. ENT: Vision unremarkable. CONSTITUTIONAL: Thin, no fevers or chills. Increased weakness. Patient is homeless. Past Medical History Past Medical History: GI Bleed, Liver Disease Additional Past Medical History / Comment(s): Alcohol abuse, smoker History of Any Multi-Drug Resistant Organisms: None Reported Past Surgical History: No Surgical Hx Reported Additional Past Surgical History / Comment(s): Paracentesis 04/21/2023 Past Anesthesia/Blood Transfusion Reactions: No Reported Reaction Past Psychological History: No Psychological Hx Reported Smoking Status: Current every day smoker Past Alcohol Use History: Daily Past Drug Use History: None Reported - Past Family History Mother Family Medical History: Hypertension Medications and Allergies Home Medications Medication Instructions Recorded Confirmed Type Midodrine [ProAmatine] 10 mg PO AC-TID #90 tab 04/23/23 04/29/23 Rx Allergies Allergy/AdvReac Type Severity Reaction Status Date / Time No Known Allergies Allergy Verified 04/29/23 15:24 Physical Exam Vitals: Vital Signs Temp Pulse Resp BP Pulse Ox 05/06/23 09:06 95 05/06/23 07:31 98.6 F 96 14 96/63 98 05/06/23 04:00 85/49 05/06/23 02:00 98.3 F 69 100/62 99 05/05/23 19:57 98.1 F 73 17 91/61 97 05/05/23 16:00 66 16 102/64 98 05/05/23 15:22 66 16 113/73 98 05/05/23 14:32 98.3 F 64 15 100/67 98 05/05/23 13:30 97.9 F 66 16 102/70 99 Intake and Output 05/05/23 05/06/23 05/06/23 22:59 06:59 14:59 Intake Total 850 Output Total 400 310 Balance 450 -310 Intake: Oral 850 Output: Urine 400 310 Other: Voiding Method Indwelling Catheter Indwelling Catheter # Bowel Movements 1 Weight 68.039 kg General appearance: The patient is alert, oriented, appears in no acute distress. Thin, unkept. HET: Head is normocephalic and atraumatic. Conjunctiva pink. Sclera anicteric. Neck: Supple without lymphadenopathy. Trachea midline. Heart: S1 S2. Regular rate and rhythm. Lungs: Clear to auscultation. Abdomen: Soft, nontender, nondistended with bowel sounds. No guarding or rigidity. Skin: No rashes. No jaundice. Extremities: Normal skin color and turgor. No pedal edema. Neurological: No focal deficits. Alert and oriented x3. Results CBC & Chem 7: 05/06/23 04:45 05/06/23 04:45 Labs: Abnormal Lab Results - Last 24 Hours (Table) 05/05/23 05/06/23 05/06/23 Range/Units 10:16 04:45 04:45 RBC 2.47 L (4.40-5.60) X 10*6/uL Hgb 8.5 L (13.0-17.0) d/dL Hct 27.6 L (39.6-50.0) % MCV 111.7 H (80.0-97.0) FL MCH 34.4 H (27.0-32.0) pg MCHC 30.8 L (32.0-37.0) d/dL RDW 16.6 H (11.5-14.5) % Plt Count 106 L (140-440) X 10*3/uL MPV 12.3 H (9.5-12.2) FL Sodium 131 L (137-145) mmol/L BUN/Creatinine Ratio 24.83 H (12.00-20.00) Ratio Glucose 71 L (74-99) mg/dL POC Glucose (mg/dL) (70-110) mg/dL Calcium 7.5 L 7.6 L (8.4-10.2) mg/dL AST 83 H (14-35) U/L Alkaline Phosphatase 206 H (41-126) U/L Total Protein 4.2 L (6.2-8.2) d/dL Albumin 2.3 L (3.8-4.9) d/dL Albumin/Globulin Ratio 1.21 L (1.60-3.17) Ratio 05/06/23 Range/Units 06:20 RBC (4.40-5.60) X 10*6/uL Hgb (13.0-17.0) d/dL Hct (39.6-50.0) % MCV (80.0-97.0) FL MCH (27.0-32.0) pg MCHC (32.0-37.0) d/dL RDW (11.5-14.5) % Plt Count (140-440) X 10*3/uL MPV (9.5-12.2) FL Sodium (137-145) mmol/L BUN/Creatinine Ratio (12.00-20.00) Ratio Glucose (74-99) mg/dL POC Glucose (mg/dL) 118 H (70-110) mg/dL Calcium (8.4-10.2) mg/dL AST (14-35) U/L Alkaline Phosphatase (41-126) U/L Total Protein (6.2-8.2) d/dL Albumin (3.8-4.9) d/dL Albumin/Globulin Ratio (1.60-3.17) Ratio Assessment and Plan (1) Alcoholic cirrhosis of liver with ascites Narrative/Plan: D7-year-old male recently hospitalized and diagnosed with alcoholic cirrhosis of the liver disease with decompensation. Patient has had ascites and paracentesis last 2 admissions. Patient has long-standing history of alcohol abuse and states he's been drinking since he was 13 years old. Labs are consistent with underlying liver disease, as is a CT abdomen and pelvis that was completed with the previous admission showing cirrhotic, nodular appearing liver. Recommend starting diuretics. Patient will need close monitoring for history of hypotension. Recommend social work consult for homelessness. Alcohol abstinence. Current Visit: Yes Status: Acute Code(s): K70.31 - ALCOHOLIC CIRRHOSIS OF LIVER WITH ASCITES SNOMED Code(s): 399425425 (2) Hypotension Current Visit: Yes Status: Acute Code(s): I95.9 - HYPOTENSION, UNSPECIFIED SNOMED Code(s): 15078254 Plan: 1. Continue symptomatic and supportive care 2. Lasix 40 mg daily and spironolactone 50 mg twice a day ordered 3. Low sodium diet 4. Recommend alcohol abstinence 5. Monitor blood pressure closely 6. Continue with recommendations from nephrology 7. Consult to social work for homelessness 8. Recommend outpatient follow-up with gastroenterology Thank you for this consultation, we will continue to follow. Dr. Rex Hilliard I agree with the dictator's note, documented as a scribe by Melanie Langley.
[2023-05-06 16:57] LABS: Glucose,Whole Blood 120 mg/dL (70-110)
[2023-05-06] MEDS: SPIRONOLACTONE 25 MG TAB PO SCH (20:41)
[2023-05-06 20:52] LABS: Glucose,Whole Blood 144 mg/dL (70-110)
[2023-05-07] MEDS: MIDODRINE 5 MG TAB PO SCH ×4 (00:21→19:16)
[2023-05-07 01:09] LABS: Glucose,Whole Blood 110 mg/dL (70-110)
[2023-05-07 06:11] LABS: Glucose,Whole Blood 102 mg/dL (70-110)
[2023-05-07] MEDS: SPIRONOLACTONE 25 MG TAB PO SCH ×2 (08:13→19:51)
[2023-05-07] MEDS: THIAMINE 100 MG TAB PO SCH (08:13)
[2023-05-07] MEDS: FUROSEMIDE 40 MG TAB PO SCH (08:13)
[2023-05-07] MEDS: MULTIVITAMINS, THERA 1 EACH TAB PO SCH (08:13)
[2023-05-07] MEDS: FOLIC ACID 1 MG TAB PO SCH (08:13)
[2023-05-07] MEDS: ENOXAPARIN 40 MG/0.4 ML SYRINGE SQ SCH (08:13)
[2023-05-07] MEDS: NICOTINE 21MG/24HR PATCH TRANSDERM SCH (08:13)
[2023-05-07 11:32] LABS: Glucose,Whole Blood 126 mg/dL (70-110)
--- NOTE | 2023-05-07 14:02 | P.PN ---
Subjective Progress Note Date: 05/07/23 Principal diagnosis: This a 57-year-old pleasant male who presented to the emergency department a week ago with complaints of weakness. He has a long-standing history of alcohol abuse. States that he started drinking when he was 13 years old and drinks 3-4 beers most days of the week. He was hospitalized a couple weeks ago and underwent CT of the abdomen and pelvis with findings suspicious of hepatic cirrhosis with nodular contour of the liver with trace bilateral pleural effusions, moderate to large abdominal ascites and hepatic colopathy. At that time he underwent paracentesis. He was subsequently discharged and readmitted the next day for weakness. . Over the last few days he had this weakness and was found to be hypotensive on admission. During the last discharge she was supposed to be taking that a drain for hypotension however patient is homeless and not following up with care. He was readmitted this admission underwent paracentesis yesterday with 4 L removed and albumin given. Gastroenterology was consulted for decompensated cirrhosis of the liver and further management of diuretics. Patient currently denies any abdominal pain, no nausea or vomiting. Patient is quite thin and unkept looking. He states he is homeless and essentially lives on the [address]. He has a brother who lives in [place] but is not able to reside with him. Patient states he is still drinking he does not eat much although he states he does not drink daily. Labs WBC 9.5 hemoglobin 8.5 hematocrit 27 platelet count 106,000 sodium 138 potassium 3.6 BUN 14.9 creatinine 0.6 total bilirubin 0.4 AST 83 atrial to 39 alkaline phosphatase 206 05/07/2023 Patient seen and examined today as a follow-up. No acute changes through the night. He was started on Lasix and spironolactone yesterday. Denies any abdominal pain, nausea or vomiting. Blood pressures 100s over 60s to 70s Objective - Vital Signs Vital signs: Vital Signs Temp 97.4 F L 05/07/23 07:22 Pulse 66 05/07/23 07:22 Resp 17 05/07/23 07:22 BP 104/67 05/07/23 07:22 Pulse Ox 99 05/07/23 07:22 FiO2 Intake & Output 05/06/23 05/07/23 05/07/23 18:59 06:59 18:59 Intake Total 720 Output Total 450 200 Balance 270 -200 Intake: Oral 720 Output: Urine 450 200 Uretheral ([place]) 200 Other: Voiding Method Indwelling Catheter Diaper Diaper # Voids 3 # Bowel Movements 1 1 - Exam General appearance: The patient is alert, oriented, appears in no acute distress. HET: Head is normocephalic and atraumatic. Conjunctiva pink. Sclera anicteric. Neck: Supple without lymphadenopathy. Abdomen: Soft, nontender, nondistended with bowel sounds. No guarding or rigidity. Extremities: Normal skin color and turgor. No pedal edema Skin: No rashes, no jaundice Neurological: No focal deficits. Alert and oriented. - Labs CBC & Chem 7: 05/06/23 04:45 05/06/23 04:45 Labs: Abnormal Lab Results - Last 24 Hours (Table) 05/06/23 05/06/23 05/07/23 Range/Units 16:56 20:50 11:31 POC Glucose (mg/dL) 120 H 144 H 126 H (70-110) mg/dL Assessment and Plan (1) Alcoholic cirrhosis of liver with ascites Narrative/Plan: 57-year-old male recently hospitalized and diagnosed with alcoholic cirrhosis of the liver with decompensation. Patient has had ascites and paracentesis last 2 admissions. Patient has long-standing history of alcohol abuse and states he's been drinking since he was 13 years old. Labs are consistent with underlying liver disease, as is a CT abdomen and pelvis that was completed with the previous admission showing cirrhotic, nodular appearing liver. Recommend starting diuretics. Patient will need close monitoring for history of hypotension. Recommend social work consult for homelessness. Alcohol abstinence. The patient to continue Lasix 40 mg daily and spironolactone 50 mg twice a day Current Visit: Yes Status: Acute Code(s): K70.31 - ALCOHOLIC CIRRHOSIS OF LIVER WITH ASCITES SNOMED Code(s): 414539011 (2) Hypotension Current Visit: Yes Status: Acute Code(s): I95.9 - HYPOTENSION, UNSPECIFIED SNOMED Code(s): 81036001 Plan: 1. Continue symptomatic and supportive care 2. Lasix 40 mg daily and spironolactone 50 mg twice a day ordered 3. Low sodium diet 4. Recommend alcohol abstinence 5. Monitor blood pressure closely 6. Continue with recommendations from nephrology 7. Consult to social work for homelessness 8. Recommend outpatient follow-up with gastroenterology Thank you for this consultation, patient is cleared from gastroenterology for discharge. Dr. Rex Hilliard I agree with the dictator's note, documented as a scribe by Melanie Langley.
--- NOTE | 2023-05-07 14:20 | P.PN ---
Subjective Patient is seen in follow-up for hyponatremia. Oral intake is poor. Campa catheter placed for urinary retention. Sodium at 138 Maintained on fluid restriction. Currently not on IV fluids or diuretics. Status post paracentesis of 4 L on 05/05/2023 No complaints today Objective - Vital Signs Vital signs: Vital Signs Temp 97.5 F L 05/07/23 13:26 Pulse 66 05/07/23 13:26 Resp 15 05/07/23 13:26 BP 107/69 05/07/23 13:26 Pulse Ox 100 05/07/23 13:26 FiO2 Intake & Output 05/06/23 05/07/23 05/07/23 18:59 06:59 18:59 Intake Total 720 Output Total 450 200 Balance 270 -200 Intake: Oral 720 Output: Urine 450 200 Uretheral ([place]) 200 Other: Voiding Method Indwelling Catheter Diaper Diaper # Voids 3 # Bowel Movements 1 1 - Exam Awake, comfortable, no acute distress Examination of the heart S1 and S2 Examination of the lungs bilateral breath sounds are heard Abdomen is soft, Examination of lower extremities shows no evidence of edema BEHAVIORAL MEDICAL DIRECTOR exam grossly intact - Labs CBC & Chem 7: 05/06/23 04:45 05/06/23 04:45 Labs: Abnormal Lab Results - Last 24 Hours (Table) 05/06/23 05/06/23 05/07/23 Range/Units 16:56 20:50 11:31 POC Glucose (mg/dL) 120 H 144 H 126 H (70-110) mg/dL Assessment and Plan Assessment: 1. Hypovolemic hyponatremia improved with IV hydration. Component of poor solute intake. Sodium level 121 on admission - at 138 now. Urine sodium less than 20 and urine osmolality 201. TSH slightly elevated at 5.85. 2. Hypokalemia from poor intake and diuresis. Replaced. 3. Alcohol-induced liver cirrhosis. Small to moderate ascites noted on ultrasound. 4. Hypoglycemia, improved. 5. Hypotension due to hypovolemia and underlying liver cirrhosis. On midodrine. Cortisol level not low. 6. Urinary retention. Campa catheter placed. Plan: Will need to be very careful with Toradol given the persistent hypotension and increase risk of acute kidney injury. Serum creatinine is currently at 0.72. We will continue to monitor closely. Continue to hold diuretics Monitor for urine retention Continue with midodrine Maintained fluid restriction at 1500 mL.
--- NOTE | 2023-05-07 15:09 | P.PN ---
Subjective Progress Note Date: 05/07/23 (delayed charting seen at 1030) Patient is a 57-year-old male with alcoholic liver cirrhosis and continued alcohol, and nicotine dependence who presetned to the ED wtih weakness and recurrent falls. Patient reports last paracentesis prior to admission was 04/21/23 with removal of 4.5 L of fluid. On arrival to the ED he was found to be hypoglycemic with blood glucose of 39 and hypotensive with blood pressure 79/45. Laboratory analysis was remarkable for hemoglobin 11, INR 1.3, sodium 121, chloride 88, bicarbonate 18, glucose of 39, AST of 198, alkaline phosphatase of 227 and albumin of 2.6. Blood alcohol level was less than 10. A chest x-ray was completed negative for acute cardiopulmonary process. Patient was admitted for symptomatic hypotension, acute on chronic hyponatremia and hypoglycemia. Nephrology was consulted intially oral lasix was discontinued, but whne BP stab ilized it was restarted. Patient underwent paracentesis on 05/05/22 with removal of 4 L of fluid. He was conitnued on midodrine 10 mg every 6 hours with blood pressures running low but currently stable ranging from 80s to low 100 systolic and 40s to 70s diastolic. Patient has not been previously evaluated by a glass rolling machine operator does not follow a call or contact centre operator. Gastroenterology was consulted and recommneded lasix, spironolactone, and outpatient follow-up. Initially he had urinary retention, but he did pass a voiding trial on 05/06/23. Physical therapy recommended that patient will need subacute rehab upon discharge due to high risk of falls, decreased strength, and unsteadiness with ambulation, currentl awaiting auth. Imaging: CT brain - negative for acute intracranial process X-ray left shoulder radiolog- moderate to severe bilateral before meals joint osteoarthritis and bony spurring at the right greater tuberosity suggesting underlying chronic rotator cuff tendinopathy and was negative for acute osseous abnormality. Abd ultrasound-small to moderate volume ascites with largest pocket right lower quadrant Patient seen and examined at bedside. He is feeling well currently. He has no other complaints at this time. He denies any significant lower extremity edema or abdominal swelling. Vital signs reviewed General: nontoxic, no distress, appears at stated age Cardiovascular: S1S2 reg, no murmur, positive posterior tibial pulse bilateral, Lungs: Decreased bs b/l bilateral, no rhonchi, no rales , no accessory muscle use Abdominal: soft, nontender to palpation, no guarding, no appreciable organomegaly Ext: no gross muscle atrophy, no edema b/l lower extremities, no contractures Neuro: CN II-XI grossly intact, no focal neuro deficits Psych: Alert, oriented, appropriate affect Assessment/Plan: Decompensated alcoholic cirrhosis Hypotension secondary to hypovolemia and cirrhosis Hypovolemia, Hyponatremia Hypokalemia Anemia and thrombocytopenia due to long-term alcohol use and cirrhosis Generalized weakness and recurrent falls Hypoglycemia, resolved Urinary retention, resolved Hypokalemia Hypomagnesemia Unwitnessed fall during hospitalization History of alcohol abuse Nicotine dependency -Continue with Lasix 40 mg daily, spironolactone 50 mg twice daily, low sodium diet, alcohol abstinence, follow up with gastroenterology on outpatient basis - patient has not been requiring any Ativan doses, will discontinue CIWA protocol, continue with thiamine 100 mg daily a acid 1 mg daily -Midrin 10 mg every 6 hours to prevent hypotension -Follow blood sugars -Nicotine patch 21 mg daily - PT/OT recs - D/C to SNF once auth obtained - follow BS Imaging: None Data Review: Vitals reviewed T-max in the last 24 hours 98.6, systolic blood pressures have been in the low 100s. Today only glucoses have been ordered all which have been greater than 100 for the last 24 hours. DVT prophylaxis: Lovenox Discussed with: Patient Anticipated discharge date: Pending Clinical Course Anticipated discharge place: Pending Clinical Course This dictation was prepared using [employer] voice recognition software. Though every attempt is made to correct errors during dictation some may still exist. Objective - Vital Signs Vital signs: Vital Signs Temp 97.5 F L 05/07/23 13:26 Pulse 66 05/07/23 13:26 Resp 15 05/07/23 13:26 BP 107/69 05/07/23 13:26 Pulse Ox 100 05/07/23 13:26 FiO2 Intake & Output 05/06/23 05/07/23 05/07/23 18:59 06:59 18:59 Intake Total 720 Output Total 450 200 Balance 270 -200 Intake: Oral 720 Output: Urine 450 200 Uretheral ([place]) 200 Other: Voiding Method Indwelling Catheter Diaper Diaper # Voids 3 # Bowel Movements 1 1 - Labs CBC & Chem 7: 05/06/23 04:45 08/15/23 04:45 Labs: Abnormal Lab Results - Last 24 Hours (Table) 05/06/23 05/06/23 05/07/23 Range/Units 16:56 20:50 11:31 POC Glucose (mg/dL) 120 H 144 H 126 H (70-110) mg/dL
[2023-05-07 17:18] LABS: Glucose,Whole Blood 150 mg/dL (70-110)
[2023-05-07 21:29] LABS: Glucose,Whole Blood 107 mg/dL (70-110)
[2023-05-08] MEDS: MIDODRINE 5 MG TAB PO SCH ×4 (00:47→17:43)
[2023-05-08 03:02] LABS: Glucose,Whole Blood 113 mg/dL (70-110)
[2023-05-08 06:27] LABS: Glucose,Whole Blood 111 mg/dL (70-110)
[2023-05-08] MEDS: ENOXAPARIN 40 MG/0.4 ML SYRINGE SQ SCH (09:31)
[2023-05-08] MEDS: MULTIVITAMINS, THERA 1 EACH TAB PO SCH (09:31)
[2023-05-08] MEDS: FOLIC ACID 1 MG TAB PO SCH (09:31)
[2023-05-08] MEDS: FUROSEMIDE 40 MG TAB PO SCH (09:31)
[2023-05-08] MEDS: SPIRONOLACTONE 25 MG TAB PO SCH ×2 (09:31→19:43)
[2023-05-08] MEDS: THIAMINE 100 MG TAB PO SCH (09:31)
[2023-05-08] MEDS: NICOTINE 21MG/24HR PATCH TRANSDERM SCH (09:31)
[2023-05-08 11:12] LABS: Glucose,Whole Blood 113 mg/dL (70-110)
--- NOTE | 2023-05-08 13:05 | P.PN ---
Subjective Patient is seen in follow-up for hyponatremia. Oral intake is poor. Campa catheter placed for urinary retention. Sodium at 131 today. Maintained on fluid restriction. Currently not on IV fluids or diuretics. Status post paracentesis of 4 L on 05/05/2023 No complaints today. Working with physical therapy. Objective - Vital Signs Vital signs: Vital Signs Temp 97.7 F 05/08/23 07:16 Pulse 94 05/08/23 12:00 Resp 16 05/08/23 08:00 BP 88/61 05/08/23 12:00 Pulse Ox 100 05/08/23 12:00 FiO2 Intake & Output 05/07/23 05/08/23 05/08/23 18:59 06:59 18:59 Intake Total 480 Output Total 600 Balance -120 Intake: Oral 480 Output: Urine 600 Other: Voiding Method Diaper Diaper Diaper # Voids 3 # Bowel Movements 1 - Exam Awake, comfortable, no acute distress Examination of lower extremities shows no evidence of edema FREIGHT AND PASSENGER AGENT exam grossly intact - Labs CBC & Chem 7: 05/06/23 04:45 05/08/23 11:46 Labs: Abnormal Lab Results - Last 24 Hours (Table) 05/07/23 05/08/23 05/08/23 Range/Units 17:17 02:59 06:26 Sodium (137-145) mmol/L POC Glucose (mg/dL) 150 H 113 H 111 H (70-110) mg/dL 05/08/23 05/08/23 Range/Units 11:09 11:46 Sodium 131 L (137-145) mmol/L POC Glucose (mg/dL) 113 H (70-110) mg/dL Assessment and Plan Assessment: 1. Hypovolemic hyponatremia improved with IV hydration. Component of poor solute intake. Sodium level 121 on admission - at 131 now. Urine sodium less than 20 and urine osmolality 201. TSH slightly elevated at 5.85. 2. Hypokalemia from poor intake and diuresis. Replaced. 3. Alcohol-induced liver cirrhosis. Small to moderate ascites noted on ultrasound. 4. Hypoglycemia, improved. 5. Hypotension due to hypovolemia and underlying liver cirrhosis. On midodrin e. Cortisol level not low. 6. Urinary retention. Campa catheter placed and subsequently removed. Plan: Check post void bladder scan rule out recurrent urine retention as serum sodium is slightly lower today. Continue with midodrine Maintained fluid restriction at 1500 mL.
[2023-05-08 16:07] LABS: Glucose,Whole Blood 96 mg/dL (70-110)
--- NOTE | 2023-05-08 16:47 | P.PN ---
Subjective Progress Note Date: 05/08/23 (delayed hcarting seen at 1400) Patient is a 57-year-old male with alcoholic liver cirrhosis and continued alcohol, and nicotine dependence who presetned to the ED wtih weakness and recurrent falls. Patient reports last paracentesis prior to admission was 04/21/23 with removal of 4.5 L of fluid. On arrival to the ED he was found to be hypoglycemic with blood glucose of 39 and hypotensive with blood pressure 79/45. Laboratory analysis was remarkable for hemoglobin 11, INR 1.3, sodium 121, chloride 88, bicarbonate 18, glucose of 39, AST of 198, alkaline phosphatase of 227 and albumin of 2.6. Blood alcohol level was less than 10. A chest x-ray was completed negative for acute cardiopulmonary process. Patient was admitted for symptomatic hypotension, acute on chronic hyponatremia and hypoglycemia. Nephrology was consulted intially oral lasix was discontinued, but whne BP stab ilized it was restarted. Patient underwent paracentesis on 05/05/22 with removal of 4 L of fluid. He was conitnued on midodrine 10 mg every 6 hours with blood pressures running low but currently stable ranging from 80s to low 100 systolic and 40s to 70s diastolic. Patient has not been previously evaluated by a webfed offset press operator does not follow a restaurant district manager. Gastroenterology was consulted and recommneded lasix, spironolactone, and outpatient follow-up. Initially he had urinary retention, but he did pass a voiding trial on 05/06/23. Physical therapy recommended that patient will need subacute rehab upon discharge due to high risk of falls, decreased strength, and unsteadiness with ambulation, currentl awaiting auth. Imaging: CT brain - negative for acute intracranial process X-ray left shoulder radiolog- moderate to severe bilateral before meals joint osteoarthritis and bony spurring at the right greater tuberosity suggesting underlying chronic rotator cuff tendinopathy and was negative for acute osseous abnormality. Abd ultrasound-small to moderate volume ascites with largest pocket right lower quadrant Patient doing well. He denies any chest pain, shortness breath, nausea, vomiting. Abdomen soft without significant fluid retention. Vital signs reviewed General: nontoxic, no distress, appears at stated age Cardiovascular: S1S2 reg, no murmur, positive posterior tibial pulse bilateral, Lungs: Decreased bs b/l bilateral, no rhonchi, no rales , no accessory muscle use Abdominal: soft, nontender to palpation, no guarding, no appreciable organomegaly Ext: no gross muscle atrophy, no edema b/l lower extremities, no contractures Neuro: CN II-XI grossly intact, no focal neuro deficits Psych: Alert, oriented, appropriate affect Assessment/Plan: Decompensated alcoholic cirrhosis Hypotension secondary to hypovolemia and cirrhosis Hypovolemia, Hyponatremia Hypokalemia Anemia and thrombocytopenia due to long-term alcohol use and cirrhosis Generalized weakness and recurrent falls Hypoglycemia, resolved Urinary retention, resolved Hypokalemia Hypomagnesemia Unwitnessed fall during hospitalization History of alcohol abuse Nicotine dependency -Continue with Lasix 40 mg daily, spironolactone 50 mg twice daily, low sodium diet, alcohol abstinence, follow up with gastroenterology on outpatient basis - continue with thiamine 100 mg daily a acid 1 mg daily -Nephrology note reviewed: Check post void residual. -Midodrine 10 mg every 6 hours to prevent hypotension -Follow blood sugars -Nicotine patch 21 mg daily - PT/OT recs - D/C to SNF once auth obtained - follow BS Imaging: None Data Review: Vital signs reviewed at 2 PM temperature 97.7, pulse 65, respirations 16, blood pressure 96/63, O2 sat 99% on room air Labs reviewed and fasting blood sugar 111. Remainder blood sugars well controlled Sodium 131 DVT prophylaxis: Lovenox Discussed with: Patient Anticipated discharge date: once auth obtained Anticipated discharge place: [facility] This dictation was prepared using [employer] voice recognition software. Though every attempt is made to correct errors during dictation some may still exist. Objective - Vital Signs Vital signs: Vital Signs Temp 97.7 F 05/08/23 14:00 Pulse 65 05/08/23 14:00 Resp 16 05/08/23 14:00 BP 96/63 05/08/23 14:00 Pulse Ox 99 05/08/23 14:00 FiO2 Intake & Output 05/07/23 05/08/23 05/08/23 18:59 06:59 18:59 Intake Total 480 Output Total 600 Balance -120 Weight 68.039 kg Intake: Oral 480 Output: Urine 600 Other: Voiding Method Diaper Diaper Diaper # Voids 3 # Bowel Movements 1 - Labs CBC & Chem 7: 05/06/23 04:45 05/08/23 11:46 Labs: Abnormal Lab Results - Last 24 Hours (Table) 05/07/23 05/08/23 05/08/23 Range/Units 17:17 02:59 06:26 Sodium (137-145) mmol/L POC Glucose (mg/dL) 150 H 113 H 111 H (70-110) mg/dL 05/08/23 05/08/23 Range/Units 11:09 11:46 Sodium 131 L (137-145) mmol/L POC Glucose (mg/dL) 113 H (70-110) mg/dL
[2023-05-08 20:53] LABS: Glucose,Whole Blood 92 mg/dL (70-110)
[2023-05-09] MEDS: MIDODRINE 5 MG TAB PO SCH ×5 (00:46→23:40)
[2023-05-09 01:58] LABS: Glucose,Whole Blood 97 mg/dL (70-110)
[2023-05-09 06:19] LABS: Glucose,Whole Blood 91 mg/dL (70-110)
[2023-05-09] MEDS: FOLIC ACID 1 MG TAB PO SCH (07:47)
[2023-05-09] MEDS: THIAMINE 100 MG TAB PO SCH (07:47)
[2023-05-09] MEDS: MULTIVITAMINS, THERA 1 EACH TAB PO SCH (07:47)
[2023-05-09] MEDS: NICOTINE 21MG/24HR PATCH TRANSDERM SCH (07:47)
[2023-05-09] MEDS: ENOXAPARIN 40 MG/0.4 ML SYRINGE SQ SCH (07:47)
[2023-05-09] MEDS: FUROSEMIDE 40 MG TAB PO SCH (07:47)
[2023-05-09] MEDS: SPIRONOLACTONE 25 MG TAB PO SCH ×2 (07:47→21:22)
[2023-05-09 07:54] LABS: ALT 38 U/L (4-49); AST 84 U/L (17-59); African American GFR (CKD) >90 (>60 ml/min/1.73 sqM); Albumin 2.2 g/dL (3.5-5.0); Albumin/Globulin Ratio 0.8; Alkaline Phosphatase 176 U/L (38-126); Anion Gap 5 mmol/L; Blood Urea Nitrogen 10 mg/dL (9-20); Calcium 7.6 mg/dL (8.4-10.2); Carbon Dioxide 22 mmol/L (22-30); Chloride 102 mmol/L (98-107); Globulin 2.8 g/dL; Glucose 74 mg/dL (74-99); Non-African American GFR(CKD) >90 (>60 ml/min/1.73 sqM); Potassium 3.9 mmol/L (3.5-5.1); Sodium 129 mmol/L (137-145)
[2023-05-09 08:06] LABS: Anisocytosis Slight; HCT 31.3 % (39.0-53.0); Hypochromasia Moderate; MCHC 31.9 g/dL (31.0-37.0); MCV 112.7 fL (80.0-100.0); Macrocytosis Marked; Mean Platelet Volume 11.4; RBC 2.77 m/uL (4.30-5.90); RDW 16.6 % (11.5-15.5); WBC 7.7 k/uL (3.8-10.6)
[2023-05-09 08:14] LABS: Platelet Count 160 k/uL (150-450)
[2023-05-09 11:18] LABS: Glucose,Whole Blood 103 mg/dL (70-110)
[2023-05-09] MEDS ORDERED: FUROSEMIDE 10 MG/ML 4 ML VIAL IV STA (11:30)
--- NOTE | 2023-05-09 15:34 | P.PN ---
Subjective Progress Note Date: 05/09/23 (delayed charting seen at 1140) Patient is a 57-year-old male with alcoholic liver cirrhosis and continued alcohol, and nicotine dependence who presetned to the ED wtih weakness and recurrent falls. Patient reports last paracentesis prior to admission was 04/21/23 with removal of 4.5 L of fluid. On arrival to the ED he was found to be hypoglycemic with blood glucose of 39 and hypotensive with blood pressure 79/45. Laboratory analysis was remarkable for hemoglobin 11, INR 1.3, sodium 121, chloride 88, bicarbonate 18, glucose of 39, AST of 198, alkaline phosphatase of 227 and albumin of 2.6. Blood alcohol level was less than 10. A chest x-ray was completed negative for acute cardiopulmonary process. Patient was admitted for symptomatic hypotension, acute on chronic hyponatremia and hypoglycemia. Nephrology was consulted intially oral lasix was discontinued, but whne BP stab ilized it was restarted. Patient underwent paracentesis on 05/05/22 with removal of 4 L of fluid. He was conitnued on midodrine 10 mg every 6 hours with blood pressures running low but currently stable ranging from 80s to low 100 systolic and 40s to 70s diastolic. Patient has not been previously evaluated by a fixed income analyst does not follow a water sander. Gastroenterology was consulted and recommneded lasix, spironolactone, and outpatient follow-up. Initially he had urinary retention, but he did pass a voiding trial on 05/06/23. Physical therapy recommended that patient will need subacute rehab upon discharge due to high risk of falls, decreased strength, and unsteadiness with ambulation, currentl awaiting auth. Imaging: CT brain - negative for acute intracranial process X-ray left shoulder radiolog- moderate to severe bilateral before meals joint osteoarthritis and bony spurring at the right greater tuberosity suggesting underlying chronic rotator cuff tendinopathy and was negative for acute osseous abnormality. Abd ultrasound-small to moderate volume ascites with largest pocket right lower quadrant Patient doing well. He denies any chest pain, shortness breath. He reports a slight upset stomach as he is worried about getting insurance auth for rehab. Vital signs reviewed General: nontoxic, no distress, appears at stated age Cardiovascular: S1S2 reg, no murmur, positive posterior tibial pulse bilateral, Lungs: Decreased bs b/l bilateral, no rhonchi, no rales , no accessory muscle use Abdominal: soft, increaed abd distension, nontender to palpation, no guarding, no appreciable organomegaly Ext: no gross muscle atrophy, no edema b/l lower extremities, no contractures Neuro: CN II-XI grossly intact, no focal neuro deficits Psych: Alert, oriented, appropriate affect Assessment/Plan: Decompensated alcoholic cirrhosis Hypotension secondary to hypovolemia and cirrhosis Hypovolemia, Hyponatremia Hypokalemia Anemia and thrombocytopenia due to long-term alcohol use and cirrhosis Generalized weakness and recurrent falls Hypoglycemia, resolved Urinary retention, resolved Hypokalemia Hypomagnesemia Unwitnessed fall during hospitalization History of alcohol abuse Nicotine dependency Severe protein calorie malnutrition - Lasix 40 mg IVP X 1, recheck sodium in AM , if increased with optimized fluid status will consider increasing oral Lasix - Continue with Lasix 40 mg daily, spironolactone 50 mg twice daily, low sodium diet, alcohol abstinence, follow up with gastroenterology on outpatient basis - continue with thiamine 100 mg daily a acid 1 mg daily -Await further nephrology recs -Midodrine 10 mg every 6 hours to prevent hypotension -Nicotine patch 21 mg daily - PT/OT recs - D/C to SNF once auth obtained - follow BS -Continue with supplementation -Encourage oral intake Imaging: None Data Review: Vital signs reviewed at 2 PM temperature 97.7, pulse 65, respirations 16, blood pressure 96/63, O2 sat 99% on room air Labs reviewed and remarkable for hemoglobin 10, sodium 129, creatinine 0.4, alkaline phosphatase 176, AST 84, albumin 2.2, AM BS 74 DVT prophylaxis: Lovenox Discussed with: Patient Anticipated discharge date: once auth obtained Anticipated discharge place: [facility] This dictation was prepared using [employer] voice recognition software. Though every attempt is made to correct errors during dictation some may still exist. Objective - Vital Signs Vital signs: Vital Signs Temp 98 F 05/09/23 13:01 Pulse 58 L 05/09/23 13:01 Resp 15 05/09/23 13:01 BP 90/60 05/09/23 13:01 Pulse Ox 99 05/09/23 13:01 FiO2 Intake & Output 05/08/23 05/09/23 05/09/23 18:59 06:59 18:59 Intake Total 580 Balance 580 Weight 68.039 kg Intake: Oral 580 Other: Voiding Method Diaper Diaper # Voids 4 1 # Bowel Movements 2 - Labs CBC & Chem 7: 05/09/23 07:14 05/09/23 07:14 Labs: Abnormal Lab Results - Last 24 Hours (Table) 05/09/23 05/09/23 Range/Units 07:14 07:14 RBC 2.77 L (4.30-5.90) m/uL Hgb 10.0 L (13.0-17.5) gm/dL Hct 31.3 L (39.0-53.0) % MCV 112.7 H (80.0-100.0) fL MCH 36.0 H (25.0-35.0) pg RDW 16.6 H (11.5-15.5) % Macrocytosis Marked A Sodium 129 L (137-145) mmol/L Creatinine 0.47 L (0.66-1.25) mg/dL Calcium 7.6 L (8.4-10.2) mg/dL AST 84 H (17-59) U/L Alkaline Phosphatase 176 H (38-126) U/L Total Protein 5.0 L (6.3-8.2) g/dL Albumin 2.2 L (3.5-5.0) g/dL
[2023-05-09 17:12] LABS: Glucose,Whole Blood 99 mg/dL (70-110)
[2023-05-09 20:48] LABS: Glucose,Whole Blood 110 mg/dL (70-110)
[2023-05-10] MEDS ORDERED: SODIUM CHLORIDE TAB 1 GM TAB PO ONE (01:12)
--- NOTE | 2023-05-10 01:15 | P.PN ---
Subjective Patient is seen in follow-up for hyponatremia. Oral intake is poor. Campa catheter placed for urinary retention. Sodium decreased to 129 today. Maintained on fluid restriction. Currently not on IV fluids or diuretics. Status post paracentesis of 4 L on 05/05/2023 No complaints today. Objective - Vital Signs Vital signs: Vital Signs Temp 97.6 F 05/09/23 19:28 Pulse 77 05/09/23 19:28 Resp 17 05/09/23 19:28 BP 95/61 05/09/23 19:28 Pulse Ox 99 05/09/23 19:28 FiO2 Intake & Output 05/09/23 05/09/23 05/10/23 06:59 18:59 06:59 Other: Voiding Method Diaper Bedside Commode # Voids 1 - Exam Awake, comfortable, no acute distress Examination of lower extremities shows no evidence of edema VIDEO GAME CREATOR exam grossly intact - Labs CBC & Chem 7: 05/09/23 07:14 05/09/23 07:14 Labs: Abnormal Lab Results - Last 24 Hours (Table) 05/09/23 05/09/23 Range/Units 07:14 07:14 RBC 2.77 L (4.30-5.90) m/uL Hgb 10.0 L (13.0-17.5) gm/dL Hct 31.3 L (39.0-53.0) % MCV 112.7 H (80.0-100.0) fL MCH 36.0 H (25.0-35.0) pg RDW 16.6 H (11.5-15.5) % Macrocytosis Marked A Sodium 129 L (137-145) mmol/L Creatinine 0.47 L (0.66-1.25) mg/dL Calcium 7.6 L (8.4-10.2) mg/dL AST 84 H (17-59) U/L Alkaline Phosphatase 176 H (38-126) U/L Total Protein 5.0 L (6.3-8.2) g/dL Albumin 2.2 L (3.5-5.0) g/dL Assessment and Plan Assessment: 1. Hypovolemic hyponatremia improved with IV hydration. Currently on low dose lasix. Component of poor solute intake. Sodium level 121 on admission - at 129 today. Urine sodium less than 20 and urine osmolality 201. TSH slightly elevated at 5.85. 2. Hypokalemia from poor intake and diuresis. Replaced. 3. Alcohol-induced liver cirrhosis. Small to moderate ascites noted on u ltrasound. 4. Hypoglycemia, improved. 5. Hypotension due to hypovolemia and underlying liver cirrhosis. On midodrine. Cortisol level not low. 6. Urinary retention. Campa catheter placed and subsequently removed. Plan: sodium chloride tab x1 Check post void residual as sodium has dropped. Continue with midodrine Maintained fluid restriction at 1500 mL.
[2023-05-10 02:07] LABS: Glucose,Whole Blood 100 mg/dL (70-110)
[2023-05-10 06:29] LABS: Glucose,Whole Blood 113 mg/dL (70-110)
[2023-05-10] MEDS: MIDODRINE 5 MG TAB PO SCH ×3 (06:32→17:22)
[2023-05-10] MEDS: FOLIC ACID 1 MG TAB PO SCH (08:24)
[2023-05-10] MEDS: FUROSEMIDE 40 MG TAB PO SCH ×2 (08:24→16:53)
[2023-05-10] MEDS: MULTIVITAMINS, THERA 1 EACH TAB PO SCH (08:24)
[2023-05-10] MEDS: THIAMINE 100 MG TAB PO SCH (08:24)
[2023-05-10] MEDS: SPIRONOLACTONE 25 MG TAB PO SCH ×2 (08:24→21:07)
[2023-05-10] MEDS: ENOXAPARIN 40 MG/0.4 ML SYRINGE SQ SCH (08:25)
[2023-05-10] MEDS: NICOTINE 21MG/24HR PATCH TRANSDERM SCH (08:25)
[2023-05-10 08:34] LABS: Anisocytosis Slight; HCT 31.8 % (39.0-53.0); HGB 10.2 gm/dL (13.0-17.5); Hypochromasia Moderate; MCH 35.8 pg (25.0-35.0); MCHC 31.9 g/dL (31.0-37.0); MCV 112.2 fL (80.0-100.0); Macrocytosis Marked; Mean Platelet Volume 10.4; Platelet Count 174 k/uL (150-450); RBC 2.84 m/uL (4.30-5.90); RDW 16.4 % (11.5-15.5); WBC 7.2 k/uL (3.8-10.6)
[2023-05-10 08:56] LABS: African American GFR (CKD) >90 (>60 ml/min/1.73 sqM); Anion Gap 3 mmol/L; Blood Urea Nitrogen 12 mg/dL (9-20); Calcium 7.9 mg/dL (8.4-10.2); Carbon Dioxide 24 mmol/L (22-30); Chloride 102 mmol/L (98-107); Glucose 93 mg/dL (74-99); Non-African American GFR(CKD) >90 (>60 ml/min/1.73 sqM); Potassium 4.3 mmol/L (3.5-5.1); Sodium 129 mmol/L (137-145)
[2023-05-10] MEDS ORDERED: LOPERAMIDE 2 MG CAP PO PRN (09:42)
[2023-05-10 11:35] LABS: Glucose,Whole Blood 101 mg/dL (70-110)
[2023-05-10] MEDS: LACTOBACILLUS ACIDOPHILUS/PECT 1 EACH CAPSULE PO SCH ×2 (12:22→21:07)
--- NOTE | 2023-05-10 12:56 | P.PN ---
Subjective Patient is seen in follow-up for hyponatremia. Sodium level stable. Admits to good urine output. Oral intake fair. Maintained on oral Lasix and spironolactone. Blood pressure on the lower side. Oral intake is poor. Vital signs are stable. Blood pressure on the lower side. General: No acute distress. HEENT: Head exam is unremarkable. LUNGS: No audible rhonchi or wheezes. HEART: Rate and Rhythm are regular. ABDOMEN: Soft, mild distention. EXTREMITITES: Trace edema. Objective - Vital Signs Vital signs: Vital Signs Temp 98.1 F 05/10/23 07:08 Pulse 57 L 05/10/23 12:16 Resp 14 05/10/23 07:08 BP 89/62 05/10/23 12:16 Pulse Ox 95 05/10/23 07:36 FiO2 Intake & Output 05/09/23 05/10/23 05/10/23 18:59 06:59 18:59 Other: Voiding Method Bedside Commode Bedside Commode Urinal # Voids 2 # Bowel Movements 1 - Labs CBC & Chem 7: 05/10/23 08:11 05/10/23 08:11 Labs: Abnormal Lab Results - Last 24 Hours (Table) 05/10/23 05/10/23 05/10/23 Range/Units 06:25 08:11 08:11 RBC 2.84 L (4.30-5.90) m/uL Hgb 10.2 L (13.0-17.5) gm/dL Hct 31.8 L (39.0-53.0) % MCV 112.2 H (80.0-100.0) fL MCH 35.8 H (25.0-35.0) pg RDW 16.4 H (11.5-15.5) % Macrocytosis Marked A Sodium 129 L (137-145) mmol/L Creatinine 0.46 L (0.66-1.25) mg/dL POC Glucose (mg/dL) 113 H (70-110) mg/dL Calcium 7.9 L (8.4-10.2) mg/dL Assessment and Plan Plan: Assessment: 1. Hyponatremia, initially hypovolemic and improved with IV hydration. Compone nt of poor solute intake. Sodium level stable at 129 today. Now hypervolemic with ascites status post paracentesis this admission. Urine sodium less than 20 and urine osmolality 201. TSH slightly elevated at 5.85. 2. Hypokalemia from poor intake and diuresis. Replaced. Stable. 3. Alcohol-induced liver cirrhosis with ascites. Status post paracentesis with 4 L drained 05/05/2023. 4. Hypoglycemia, improved. 5. Hypotension due to hypovolemia and underlying liver cirrhosis. On midodrine. Cortisol level not low. 6. Urinary retention. Campa catheter now removed. Plan: Maintain Lasix and spironolactone. Maintain 1200 mL fluid restriction. Encourage oral intake. Maintain midodrine. Cortisol level not low.
--- NOTE | 2023-05-10 14:32 | P.PN ---
Subjective Progress Note Date: 05/10/23 Patient is a 57-year-old male with alcoholic liver cirrhosis and continued alcohol, and nicotine dependence who presetned to the ED wtih weakness and recurrent falls. Patient reports last paracentesis prior to admission was 04/21/23 with removal of 4.5 L of fluid. On arrival to the ED he was found to be hypoglycemic with blood glucose of 39 and hypotensive with blood pressure 79/45. Laboratory analysis was remarkable for hemoglobin 11, INR 1.3, sodium 121, chloride 88, bicarbonate 18, glucose of 39, AST of 198, alkaline phosphatase of 227 and albumin of 2.6. Blood alcohol level was less than 10. A chest x-ray was completed negative for acute cardiopulmonary process. Patient was admitted for symptomatic hypotension, acute on chronic hyponatremia and hypoglycemia. Nephrology was consulted intially oral lasix was discontinued, but whne BP stabilized it was restarted. Patient underwent paracentesis on 05/05/22 with removal of 4 L of fluid. He was conitnued on midodrine 10 mg every 6 hours with blood pressures running low but currently stable ranging from 80s to low 100 s ystolic and 40s to 70s diastolic. Patient has not been previously evaluated by a link cutter does not follow a hotel night auditor. Gastroenterology was consulted and recommneded lasix, spironolactone, and outpatient follow-up. Initially he had urinary retention, but he did pass a voiding trial on 05/06/23. Physical therapy recommended that patient will need subacute rehab upon discharge due to high risk of falls, decreased strength, and unsteadiness with ambulation, currentl awaiting auth. Imaging: CT brain - negative for acute intracranial process X-ray left shoulder radiolog- moderate to severe bilateral before meals joint osteoarthritis and bony spurring at the right greater tuberosity suggesting underlying chronic rotator cuff tendinopathy and was negative for acute osseous abnormality. Abd ultrasound-small to moderate volume ascites with largest pocket right lower quadrant He continues to have an upset stomach and has not ate much today. He reports that this happens with nerves and he is anxious about getting into rehab. No chest pain or shortness of breath. Vital signs reviewed General: nontoxic, no distress, appears at stated age Cardiovascular: S1S2 reg, no murmur, positive posterior tibial pulse bilateral, Lungs: Decreased bs b/l bilateral, no rhonchi, no rales , no accessory muscle use Abdominal: soft, + mild abd distension, nontender to palpation, no guarding, no appreciable organomegaly Ext: no gross muscle atrophy, no edema b/l lower extremities, no contractures Neuro: CN II-XI grossly intact, no focal neuro deficits Psych: Alert, oriented, appropriate affect Assessment/Plan: Decompensated alcoholic cirrhosis Hypotension secondary to hypovolemia and cirrhosis Hypovolemia, Hyponatremia Hypokalemia Anemia and thrombocytopenia due to long-term alcohol use and cirrhosis Generalized weakness and recurrent falls Hypoglycemia, resolved Urinary retention, resolved Hypokalemia Hypomagnesemia Unwitnessed fall during hospitalization History of alcohol abuse Nicotine dependency Severe protein calorie malnutrition - Lasix 40 mg BID, spironolactone 50 mg twice daily, low sodium diet, alcohol abstinence, follow up with gastroenterology on outpatient basis - continue with thiamine 100 mg daily a acid 1 mg daily -Nephrology note reviewed: Maintain Lasix and spironolactone, 200 MLS fluid restriction, encourage oral intake -Midodrine 10 mg every 6 hours to prevent hypotension -Nicotine patch 21 mg daily - PT/OT recs - D/C to SNF once auth obtained -Continue with supplementation -Encourage oral intake - add lactobacillus 1 tab BID and imodium 2 mg q 6 prn Imaging: None Data Review: Vitals reviewed from 7 AM temperature 98.1, pulse 64, respirations 14, blood pressure 103/63, O2 sat 98% on room air Labs reviewed and hemoglobin 10.2, hematocrit 31.8, sodium 129, calcium 7.9 DVT prophylaxis: Lovenox Discussed with: Patient Anticipated discharge date: once auth obtained Anticipated discharge place: [facility] This dictation was prepared using [employer] voice recognition software. Though every attempt is made to correct errors during dictation some may still exist. Objective - Vital Signs Vital signs: Vital Signs Temp 98.1 F 05/10/23 07:08 Pulse 57 L 05/10/23 12:16 Resp 14 05/10/23 07:08 BP 89/62 05/10/23 12:16 Pulse Ox 95 05/10/23 07:36 FiO2 Intake & Output 05/09/23 05/10/23 05/10/23 18:59 06:59 18:59 Other: Voiding Method Bedside Commode Bedside Commode Urinal # Voids 2 # Bowel Movements 1 - Labs CBC & Chem 7: 05/10/23 08:11 05/10/23 08:11 Labs: Abnormal Lab Results - Last 24 Hours (Table) 05/10/23 05/10/23 05/10/23 Range/Units 06:25 08:11 08:11 RBC 2.84 L (4.30-5.90) m/uL Hgb 10.2 L (13.0-17.5) gm/dL Hct 31.8 L (39.0-53.0) % MCV 112.2 H (80.0-100.0) fL MCH 35.8 H (25.0-35.0) pg RDW 16.4 H (11.5-15.5) % Macrocytosis Marked A Sodium 129 L (137-145) mmol/L Creatinine 0.46 L (0.66-1.25) mg/dL POC Glucose (mg/dL) 113 H (70-110) mg/dL Calcium 7.9 L (8.4-10.2) mg/dL
[2023-05-10 16:36] LABS: Glucose,Whole Blood 103 mg/dL (70-110)
[2023-05-10 20:41] LABS: Glucose,Whole Blood 119 mg/dL (70-110)
[2023-05-11] MEDS: MIDODRINE 5 MG TAB PO SCH ×4 (00:06→17:29)
[2023-05-11 01:49] LABS: Glucose,Whole Blood 91 mg/dL (70-110)
[2023-05-11 05:48] LABS: Glucose,Whole Blood 100 mg/dL (70-110)
[2023-05-11 08:22] LABS: African American GFR (CKD) >90 (>60 ml/min/1.73 sqM); Blood Urea Nitrogen 13 mg/dL (9-20); Calcium 7.9 mg/dL (8.4-10.2); Carbon Dioxide 27 mmol/L (22-30); Glucose 70 mg/dL (74-99); Magnesium 1.6 mg/dL (1.6-2.3); Non-African American GFR(CKD) >90 (>60 ml/min/1.73 sqM); Potassium 3.8 mmol/L (3.5-5.1); Sodium 130 mmol/L (137-145)
[2023-05-11] MEDS: SPIRONOLACTONE 25 MG TAB PO SCH ×2 (08:55→22:02)
[2023-05-11] MEDS: LACTOBACILLUS ACIDOPHILUS/PECT 1 EACH CAPSULE PO SCH ×2 (08:55→22:02)
[2023-05-11] MEDS: ENOXAPARIN 40 MG/0.4 ML SYRINGE SQ SCH (08:55)
[2023-05-11] MEDS: MULTIVITAMINS, THERA 1 EACH TAB PO SCH (08:55)
[2023-05-11] MEDS: NICOTINE 21MG/24HR PATCH TRANSDERM SCH (08:55)
[2023-05-11] MEDS: FOLIC ACID 1 MG TAB PO SCH (08:55)
[2023-05-11] MEDS: THIAMINE 100 MG TAB PO SCH (08:56)
[2023-05-11] MEDS: FUROSEMIDE 40 MG TAB PO SCH ×2 (08:56→17:29)
[2023-05-11 09:59] LABS: Anion Gap 4 mmol/L; Chloride 99 mmol/L (98-107)
--- NOTE | 2023-05-11 11:27 | P.PN ---
Subjective Patient is seen in follow-up for hyponatremia. Sodium level stable. Admits to good urine output. Oral intake fair. Maintained on oral Lasix and spironolactone. Blood pressure remains on the lower side. Oral intake is fair. Vital signs are stable. Blood pressure on the lower side. General: No acute distress. HEENT: Head exam is unremarkable. LUNGS: No audible rhonchi or wheezes. HEART: Rate and Rhythm are regular. ABDOMEN: Soft, mild distention. EXTREMITITES: Trace edema. Objective - Vital Signs Vital signs: Vital Signs Temp 97.9 F 05/11/23 07:35 Pulse 72 05/11/23 07:35 Resp 14 05/11/23 07:35 BP 85/56 05/11/23 07:35 Pulse Ox 100 05/11/23 07:35 FiO2 Intake & Output 05/10/23 05/11/23 05/11/23 18:59 06:59 18:59 Intake Total 1080 Balance 1080 Intake: Oral 1080 Other: Voiding Method Bedside Commode Bedside Commode Bedside Commode Urinal Urinal Urinal # Voids 5 2 - Labs CBC & Chem 7: 05/10/23 08:11 05/11/23 06:23 Labs: Abnormal Lab Results - Last 24 Hours (Table) 05/10/23 05/11/23 Range/Units 20:39 06:23 Sodium 130 L (137-145) mmol/L Creatinine 0.62 L (0.66-1.25) mg/dL Glucose 70 L (74-99) mg/dL POC Glucose (mg/dL) 119 H (70-110) mg/dL Calcium 7.9 L (8.4-10.2) mg/dL Assessment and Plan Plan: Assessment: 1. Hyponatremia, initially hypovolemic and improved with IV hydration. Component of poor solute intake. Sodium level stable at 130 today. Now hypervolemic with ascites status post paracentesis this admission. Urine sodium less than 20 and urine osmolality 201. TSH slightly elevated at 5.85. 2. Hypokalemia from poor intake and diuresis. Replaced. Stable. 3. Alcohol-induced liver cirrhosis with ascites. Status post paracentesis with 4 L drained 05/05/2023. 4. Hypoglycemia, improved. 5. Hypotension due to hypovolemia and underlying liver cirrhosis. On midodrine. Cortisol level not low. 6. Urinary retention. Campa catheter now removed. 7. Hypomagnesemia from poor intake. Plan: Maintain Lasix and spironolactone. Maintain 1200 mL fluid restriction. Encourage oral intake. Maintain midodrine. Cortisol level not low. Add oral magnesium oxide.
[2023-05-11 11:34] LABS: Glucose,Whole Blood 106 mg/dL (70-110)
[2023-05-11] MEDS: MAGNESIUM OXIDE 400 MG TAB PO SCH (11:39)
[2023-05-11 16:46] LABS: Glucose,Whole Blood 104 mg/dL (70-110)
--- NOTE | 2023-05-11 17:17 | P.PN ---
Subjective Progress Note Date: 05/11/23 (delayed charting seen at 1055) Patient is a 57-year-old male with alcoholic liver cirrhosis and continued alcohol, and nicotine dependence who presetned to the ED wtih weakness and recurrent falls. Patient reports last paracentesis prior to admission was 04/21/23 with removal of 4.5 L of fluid. On arrival to the ED he was found to be hypoglycemic with blood glucose of 39 and hypotensive with blood pressure 79/45. Laboratory analysis was remarkable for hemoglobin 11, INR 1.3, sodium 121, chloride 88, bicarbonate 18, glucose of 39, AST of 198, alkaline phosphatase of 227 and albumin of 2.6. Blood alcohol level was less than 10. A chest x-ray was completed negative for acute cardiopulmonary process. Patient was admitted for symptomatic hypotension, acute on chronic hyponatremia and hypoglycemia. Nephrology was consulted intially oral lasix was discontinued, but whne BP stab ilized it was restarted. Patient underwent paracentesis on 05/05/22 with removal of 4 L of fluid. He was conitnued on midodrine 10 mg every 6 hours with blood pressures running low but currently stable ranging from 80s to low 100 systolic and 40s to 70s diastolic. Patient has not been previously evaluated by a supervisor tellers does not follow a chemical checker. Gastroenterology was consulted and recommneded lasix, spironolactone, and outpatient follow-up. Initially he had urinary retention, but he did pass a voiding trial on 05/06/23. Physical therapy recommended that patient will need subacute rehab upon discharge due to high risk of falls, decreased strength, and unsteadiness with ambulation, currentl awaiting auth. Imaging: CT brain - negative for acute intracranial process X-ray left shoulder radiolog- moderate to severe bilateral before meals joint osteoarthritis and bony spurring at the right greater tuberosity suggesting underlying chronic rotator cuff tendinopathy and was negative for acute osseous abnormality. Abd ultrasound-small to moderate volume ascites with largest pocket right lower quadrant Patient seen and examined at bedside. His stomach is feeling much better than yesterday health calm down quite a bit. He denies any chest pain, shortness breath, nausea, vomiting. Vital signs reviewed General: nontoxic, no distress, appears at stated age Cardiovascular: S1S2 reg, no murmur, positive posterior tibial pulse bilateral, Lungs: Decreased bs b/l bilateral, no rhonchi, no rales , no accessory muscle use Abdominal: soft, + mild abd distension, nontender to palpation, no guarding, no appreciable organomegaly Ext: no gross muscle atrophy, no edema b/l lower extremities, no contractures Neuro: CN II-XI grossly intact, no focal neuro deficits Psych: Alert, oriented, appropriate affect Assessment/Plan: Decompensated alcoholic cirrhosis Hypotension secondary to hypovolemia and cirrhosis Hypovolemia, Hyponatremia Anemia and thrombocytopenia due to long-term alcohol use and cirrhosis Generalized weakness and recurrent falls Hypoglycemia, resolved Urinary retention, resolved Hypokalemia Hypomagnesemia Unwitnessed fall during hospitalization History of alcohol abuse Nicotine dependency Severe protein calorie malnutrition - Nephrology note reviewed: Maintain on fluid restrictions, Lasix, Aldactone, Mi dodrin, add oral magnesium - Lasix 40 mg BID, spironolactone 50 mg twice daily, low sodium diet, alcohol abstinence, follow up with gastroenterology on outpatient basis - continue with thiamine 100 mg daily a acid 1 mg daily -Nephrology note reviewed: Maintain Lasix and spironolactone, 200 MLS fluid restriction, encourage oral intake -Midodrine 10 mg every 6 hours to prevent hypotension -Nicotine patch 21 mg daily - PT/OT recs - D/C to SNF once auth obtained -Continue with supplementation -Encourage oral intake - lactobacillus 1 tab BID and imodium 2 mg q 6 prn Imaging: None Data Review: Vitals reviewed patient has been afebrile for the last 24 hours. Temperature 97.9, pulse 72, respirations 17, blood pressure 85/56 at 7:30, at 1140 was 106/71, O2 sat 100% on room air Labs reviewed and remarkable for sodium 1:30, magnesium 1.6 DVT prophylaxis: Lovenox Discussed with: Patient Anticipated discharge date: once auth obtained Anticipated discharge place: [facility] This dictation was prepared using [employer] voice recognition software. Though every attempt is made to correct errors during dictation some may still exist. Objective - Vital Signs Vital signs: Vital Signs Temp 97.6 F 05/11/23 14:00 Pulse 71 05/11/23 14:00 Resp 16 05/11/23 14:00 BP 109/72 05/11/23 14:00 Pulse Ox 100 05/11/23 14:00 FiO2 Intake & Output 05/10/23 05/11/23 05/11/23 18:59 06:59 18:59 Intake Total 1080 Balance 1080 Intake: Oral 1080 Other: Voiding Method Bedside Commode Bedside Commode Bedside Commode Urinal Urinal Urinal # Voids 5 2 - Labs CBC & Chem 7: 05/10/23 08:11 05/11/23 06:23 Labs: Abnormal Lab Results - Last 24 Hours (Table) 05/10/23 05/11/23 Range/Units 20:39 06:23 Sodium 130 L (137-145) mmol/L Creatinine 0.62 L (0.66-1.25) mg/dL Glucose 70 L (74-99) mg/dL POC Glucose (mg/dL) 119 H (70-110) mg/dL Calcium 7.9 L (8.4-10.2) mg/dL
[2023-05-11] MEDS: MUPIROCIN 2% OINT 22 GM TUBE TOPICAL SCH ×3 (17:29→22:36)
[2023-05-11 20:30] LABS: Glucose,Whole Blood 159 mg/dL (70-110)
[2023-05-12] MEDS: MIDODRINE 5 MG TAB PO SCH ×4 (00:03→18:02)
[2023-05-12 01:37] LABS: Glucose,Whole Blood 128 mg/dL (70-110)
[2023-05-12 05:09] LABS: Anisocytosis Slight; HCT 29.8 % (39.0-53.0); HGB 9.6 gm/dL (13.0-17.5); Hypochromasia Slight; MCH 36.1 pg (25.0-35.0); MCHC 32.2 g/dL (31.0-37.0); MCV 112.4 fL (80.0-100.0); Macrocytosis Marked; Mean Platelet Volume 10.6; Platelet Count 191 k/uL (150-450); RBC 2.65 m/uL (4.30-5.90); WBC 7.4 k/uL (3.8-10.6)
[2023-05-12 05:26] LABS: African American GFR (CKD) >90 (>60 ml/min/1.73 sqM); Blood Urea Nitrogen 17 mg/dL (9-20); Calcium 7.9 mg/dL (8.4-10.2); Carbon Dioxide 30 mmol/L (22-30); Glucose 89 mg/dL (74-99); Magnesium 1.7 mg/dL (1.6-2.3); Non-African American GFR(CKD) >90 (>60 ml/min/1.73 sqM)
[2023-05-12 05:41] LABS: Anion Gap 3 mmol/L; Chloride 97 mmol/L (98-107); Potassium 3.9 mmol/L (3.5-5.1); Sodium 130 mmol/L (137-145)
[2023-05-12 06:00] LABS: Glucose,Whole Blood 108 mg/dL (70-110)
[2023-05-12] MEDS: FOLIC ACID 1 MG TAB PO SCH (08:58)
[2023-05-12] MEDS: NICOTINE 21MG/24HR PATCH TRANSDERM SCH (08:58)
[2023-05-12] MEDS: ENOXAPARIN 40 MG/0.4 ML SYRINGE SQ SCH (08:58)
[2023-05-12] MEDS: MULTIVITAMINS, THERA 1 EACH TAB PO SCH (08:59)
[2023-05-12] MEDS: SPIRONOLACTONE 25 MG TAB PO SCH ×2 (08:59→19:45)
[2023-05-12] MEDS: MUPIROCIN 2% OINT 22 GM TUBE TOPICAL SCH ×3 (08:59→22:11)
[2023-05-12] MEDS: LACTOBACILLUS ACIDOPHILUS/PECT 1 EACH CAPSULE PO SCH ×2 (08:59→19:44)
[2023-05-12] MEDS: MAGNESIUM OXIDE 400 MG TAB PO SCH (08:59)
[2023-05-12] MEDS: THIAMINE 100 MG TAB PO SCH (08:59)
[2023-05-12] MEDS: FUROSEMIDE 40 MG TAB PO SCH ×2 (08:59→16:27)
[2023-05-12 11:26] LABS: Glucose,Whole Blood 116 mg/dL (70-110)
--- NOTE | 2023-05-12 12:48 | P.PN ---
Subjective Patient is seen in follow-up for hyponatremia. Sodium level stable. Admits to good urine output. Oral intake fair. Maintained on oral Lasix and spironolactone. Blood pressure stable. Oral intake is fair. Vital signs are stable. Blood pressure on the lower side. General: No acute distress. HEENT: Head exam is unremarkable. LUNGS: No audible rhonchi or wheezes. HEART: Rate and Rhythm are regular. ABDOMEN: Soft, mild distention. EXTREMITITES: Trace edema. Objective - Vital Signs Vital signs: Vital Signs Temp 97.4 F L 05/12/23 07:20 Pulse 71 05/12/23 07:20 Resp 17 05/12/23 07:20 BP 95/57 05/12/23 12:26 Pulse Ox 100 05/12/23 08:00 FiO2 21 05/12/23 08:00 Intake & Output 05/11/23 05/12/23 05/12/23 18:59 06:59 18:59 Intake Total 720 Balance 720 Intake: Oral 720 Other: Voiding Method Bedside Commode Bedside Commode Urinal Urinal # Voids 6 3 # Bowel Movements 1 2 - Labs CBC & Chem 7: 05/12/23 04:52 05/12/23 04:52 Labs: Abnormal Lab Results - Last 24 Hours (Table) 05/11/23 05/12/23 05/12/23 Range/Units 20:29 01:33 04:52 RBC 2.65 L (4.30-5.90) m/uL Hgb 9.6 L (13.0-17.5) gm/dL Hct 29.8 L (39.0-53.0) % MCV 112.4 H (80.0-100.0) fL MCH 36.1 H (25.0-35.0) pg RDW 17.0 H (11.5-15.5) % Macrocytosis Marked A Sodium (137-145) mmol/L Chloride (98-107) mmol/L Creatinine (0.66-1.25) mg/dL POC Glucose (mg/dL) 159 H 128 H (70-110) mg/dL Calcium (8.4-10.2) mg/dL 05/12/23 05/12/23 Range/Units 04:52 11:23 RBC (4.30-5.90) m/uL Hgb (13.0-17.5) gm/dL Hct (39.0-53.0) % MCV (80.0-100.0) fL MCH (25.0-35.0) pg RDW (11.5-15.5) % Macrocytosis Sodium 130 L (137-145) mmol/L Chloride 97 L (98-107) mmol/L Creatinine 0.62 L (0.66-1.25) mg/dL POC Glucose (mg/dL) 116 H (70-110) mg/dL Calcium 7.9 L (8.4-10.2) mg/dL Assessment and Plan Plan: Assessment: 1. Hyponatremia, initially hypovolemic and improved with IV hydration. Component of poor solute intake. Sodium level stable at 130 today. Now hypervolemic with ascites status post paracentesis this admission. Urine sodium less than 20 and urine osmolality 201. TSH slightly elevated at 5.85. 2. Hypokalemia from poor intake and diuresis. Replaced. Stable. 3. Alcohol-induced liver cirrhosis with ascites. Status post paracentesis with 4 L drained 05/05/2023. 4. Hypoglycemia, improved. 5. Hypotension due to hypovolemia and underlying liver cirrhosis. On midodrine. Cortisol level not low. 6. Urinary retention. Campa catheter now removed. 7. Hypomagnesemia from poor intake. On oral magnesium oxide. Plan: Maintain Lasix and spironolactone. Maintain 1200 mL fluid restriction. Encourage oral intake. Maintain midodrine. Cortisol level not low. Repeat BMP and magnesium level to 3 days postdischarge. Follow up outpatient 1 week post discharge
--- NOTE | 2023-05-12 15:09 | P.PN ---
Subjective Progress Note Date: 05/12/23 Hospital course: Patient is a very pleasant 57-year-old male with a past medical history of alcoholic liver cirrhosis, continued alcohol use reporting drinking randal roximately 3 beers every other day, and nicotine dependence. Patient reports last paracentesis was 04/21/23 with removal of 4.5 L of fluid and last alcoholic beverage being 04/28/23. Patient presented to the emergency department via EMS on 04/29/23 secondary to reports of weakness and recurrent falls. Patient was found to be hypoglycemic with blood glucose of 39 and hypotensive with blood pressure 79/45. Patient reported that he takes midodrine 10 mg 3 times daily for treatment of his chronic hypotension resulting from advanced liver cirrhosis, but reported he has not taken this medication in a couple of days. Patient underwent full evaluation in the emergency department. Vital signs reviewed. Blood pressure 79/45, heart rate 82, respiratory rate 18, and SpO2 of 96% on room air. Labs completed and reviewed. CBC showing macrocytic hyperchromic anemia with hemoglobin of 11.0. Coagulation profile revealing elevated PT of 12.8 and INR 1.3. BMP revealing acute on chronic hyponatremia with sodium 121, chloride 88, bicarbonate 18, and severe hypoglycemia with glucose of 39. Liver profile revealing elevated AST of 198 and alkaline phosphatase of 227 and albumin of 2.6. Blood alcohol level was less than 10. A chest x-ray was completed negative for acute cardiopulmonary process. Patient was admitted under our services for symptomatic hypotension, acute on chronic hyponatremia and hypoglycemia. Nephrology was consulted secondary to severe hyponatremia and need for diuresis. Patient underwent successful paracentesis with interventional radiology on 05/05/22 with removal of 4 L of fluid. He was given 25 g of albumin. He remains on midodrine 10 mg every 6 hours with blood pr essures running low but currently stable ranging from 80s to low 100 systolic and 40s to 70s diastolic. Gastroenterology was consulted and recommended patient be placed on Lasix 40 mg by mouth twice daily, Aldactone 50 mg by mouth twice daily, and outpatient follow-up. Physical therapy also evaluated and recommending that patient will need subacute rehab upon discharge due to decreased strength and balance and inability to stand from lower surfaces such as toilet independently. Patient has been accepted to [facility] for rehab and currently awaiting insurance authorization. Physical exam: Patient seen and fully evaluated at bedside this morning. He was sitting up in the chair and appears to be doing well this morning. Patient does report some mild abdominal pain/cramping from paracentesis but otherwise denies any complaints. Patient does report eating slightly more than the previous 25%. He denies any nausea or vomiting. Vital signs reviewed and stable. General: Nontoxic, no distress and appears stated age. Patient with bru ising/ecchymosis surrounding the left orbital region and side of forehead Derm: Skin warm and dry, normal coloration for ethnicity. Patient with multiple bruises and scabs covering upper extremities. Patient with skin tear on bilateral arms Head: Atraumatic, normocephalic and symmetric. Eyes: EOMs intact, no lid lag, and anicteric sclera Mouth: no lip lesions, mucus membranes moist Cardiovascular: regular rate and rhythm with normal S1S2, systolic murmur, positive posterior tibial pulses bilaterally, and cap refill < 2 seconds. Lungs: Respirations even, regular, and unlabored on room air. Lungs CTA bilaterally, no rhonchi, no rales, no wheezing, and no accessory muscle usage. Abdominal: Cirrhotic abdomen, nontender to palpation, no guarding, no appreciable organomegaly Ext: ROM intact. No gross muscle atrophy, 1-2+ pitting bilateral lower extremity edema, no contractures Neuro: Speech clear, face symmetrical and CN II-XII grossly intact with no noted focal neuro deficits Psych: Alert and oriented to person, place, time, and situation. Appropriate and pleasant affect. Assessment and Plan of Care: Symptomatic hypotension, hypotension is secondary to decompensated cirrhosis Alcoholic liver cirrhosis, decompensated with continued alcohol use Acute on chronic hyponatremia, believed to be secondary to decompensated cirrhosis with ascites along with poor oral intake. Bicytopenia secondary to chronic long-term alcohol use and cirrhosis of liver Weakness and recurrent falls Severe protein calorie malnutrition Hypoglycemia, resolved Urinary retention, resolved Hypokalemia, resolved Hypomagnesemia, resolved -Nephrology following and reviewed documentation in chart recommending maintaining Lasix and Aldactone along with 1200 mL fluid restriction. Mushroom Growing Supervisor recommending repeat BMP and magnesium level III days post discharge and follow up outpatient with her office in one week. -For treatment of persistent hypotension, patient to continue midodrine 10 mg every 6 hours with blood pressures running low but currently stable ranging from 80s to low 100 systolic and 40s to 70s diastolic. -Gastroenterology evaluated and started patient on Lasix 40 mg twice daily and Aldactone 50 mg twice daily. -Physical therapy has been following along with patient and recommending that patient will need subacute rehab upon discharge due to decreased strength and balance and inability to stand from lower surfaces such as toilet independently. PT reports patient has been showing improvement and would benefit from subacute rehab placement for continued strength and balance training and improvement on transfers. -Plan is for discharge to [facility] for rehab with continued PT/OT. Reported Unwitnessed Fall during hospitalization -Fall precautions to remain in place. 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 Nicotine dependence. -Nicotine patch 21 mg daily, patient encouraged to stop smoking. Imaging reviewed: No new imaging available for review. Data reviewed: Vital signs reviewed. Blood pressure 121/67, heart rate 71, respiratory rate 17, temp 97.4F, and SpO2 of 96% on room air. Morning labs reviewed. CBC showing normocytic anemia with hemoglobin of 9.6 and resolution of previous noted thrombocytopenia with platelet count of 191. BMP showing stable sodium of 130 and chloride of 97. Magnesium slightly low 1.7 and orders placed for magnesium sulfate 2 g IVPB for replacement. CODE STATUS: Full code DVT prophylaxis: Lovenox Discussed with: Patient and RN, and case management. Multiple attempts made for Peer to Peer with insurance company voicemail message left. Anticipated discharge date: Pending insurance authorization Anticipated discharge place: [facility] Patient was seen independently by Nurse Practitioner. This document was prepared using [employer] dictation software. Please allow for errors in um specialist while rare they do occur. I reviewed the documentation as provided by the RANDAL above, who is the original author of this note. I agree with the documented assessment and plan, with the following changes: none Objective - Vital Signs Vital signs: Vital Signs Temp 97.4 F L 05/12/23 07:20 Pulse 71 05/12/23 07:20 Resp 17 05/12/23 07:20 BP 121/67 05/12/23 07:20 Pulse Ox 100 05/12/23 08:00 FiO2 21 05/12/23 08:00 Intake & Output 05/11/23 05/12/23 05/12/23 18:59 06:59 18:59 Intake Total 720 Balance 720 Intake: Oral 720 Other: Voiding Method Bedside Commode Bedside Commode Urinal Urinal # Voids 6 3 # Bowel Movements 1 2 - Labs CBC & Chem 7: 05/12/23 04:52 05/12/23 04:52 Labs: Abnormal Lab Results - Last 24 Hours (Table) 05/11/23 05/11/23 05/12/23 Range/Units 06:23 20:29 01:33 RBC (4.30-5.90) m/uL Hgb (13.0-17.5) gm/dL Hct (39.0-53.0) % MCV (80.0-100.0) fL MCH (25.0-35.0) pg RDW (11.5-15.5) % Macrocytosis Sodium 130 L (137-145) mmol/L Chloride (98-107) mmol/L Creatinine 0.62 L (0.66-1.25) mg/dL Glucose 70 L (74-99) mg/dL POC Glucose (mg/dL) 159 H 128 H (70-110) mg/dL Calcium 7.9 L (8.4-10.2) mg/dL 05/12/23 05/12/23 Range/Units 04:52 04:52 RBC 2.65 L (4.30-5.90) m/uL Hgb 9.6 L (13.0-17.5) gm/dL Hct 29.8 L (39.0-53.0) % MCV 112.4 H (80.0-100.0) fL MCH 36.1 H (25.0-35.0) pg RDW 17.0 H (11.5-15.5) % Macrocytosis Marked A Sodium 130 L (137-145) mmol/L Chloride 97 L (98-107) mmol/L Creatinine 0.62 L (0.66-1.25) mg/dL Glucose (74-99) mg/dL POC Glucose (mg/dL) (70-110) mg/dL Calcium 7.9 L (8.4-10.2) mg/dL
[2023-05-12] MEDS: MAGNESIUM SULFATE-D5W PMX 1 GM in DEXTROSE/WATER 1 100ML.BAG IVPB SCH ×2 (16:29→18:03)
[2023-05-12 16:59] LABS: Glucose,Whole Blood 117 mg/dL (70-110)
[2023-05-13] MEDS: MIDODRINE 5 MG TAB PO SCH ×4 (00:13→18:13)
[2023-05-13 05:50] LABS: Glucose,Whole Blood 100 mg/dL (70-110)
[2023-05-13] MEDS: FUROSEMIDE 40 MG TAB PO SCH ×2 (09:59→16:02)
[2023-05-13] MEDS: MULTIVITAMINS, THERA 1 EACH TAB PO SCH (09:59)
[2023-05-13] MEDS: THIAMINE 100 MG TAB PO SCH (09:59)
[2023-05-13] MEDS: FOLIC ACID 1 MG TAB PO SCH (09:59)
[2023-05-13] MEDS: LACTOBACILLUS ACIDOPHILUS/PECT 1 EACH CAPSULE PO SCH ×2 (09:59→19:59)
[2023-05-13] MEDS: MAGNESIUM OXIDE 400 MG TAB PO SCH (09:59)
[2023-05-13] MEDS: SPIRONOLACTONE 25 MG TAB PO SCH ×2 (09:59→19:59)
[2023-05-13] MEDS: NICOTINE 21MG/24HR PATCH TRANSDERM SCH (10:00)
[2023-05-13] MEDS: ENOXAPARIN 40 MG/0.4 ML SYRINGE SQ SCH (10:00)
[2023-05-13] MEDS: MUPIROCIN 2% OINT 22 GM TUBE TOPICAL SCH ×3 (10:03→19:59)
[2023-05-13 11:17] LABS: Glucose,Whole Blood 143 mg/dL (70-110)
--- NOTE | 2023-05-13 13:13 | P.PN ---
Subjective Patient is seen in follow-up for hyponatremia. Sodium level stable as of yesterday. Admits to good urine output. Oral intake fair. Maintained on oral Lasix and spironolactone. Blood pressure stable. Oral intake is fair. No active complaints. Vital signs are stable. Blood pressure on the lower side. General: No acute distress. HEENT: Head exam is unremarkable. LUNGS: No audible rhonchi or wheezes. HEART: Rate and Rhythm are regular. ABDOMEN: Soft, mild distention. EXTREMITITES: Trace edema. Objective - Vital Signs Vital signs: Vital Signs Temp 98.1 F 05/13/23 07:27 Pulse 74 05/13/23 07:27 Resp 16 05/13/23 07:27 BP 86/43 05/13/23 07:27 Pulse Ox 98 05/13/23 09:03 FiO2 21 05/13/23 09:03 Intake & Output 05/12/23 05/13/23 05/13/23 18:59 06:59 18:59 Weight 68.039 kg Other: Voiding Method Bedside Commode Urinal # Voids 4 # Bowel Movements 2 - Labs CBC & Chem 7: 05/12/23 04:52 05/12/23 04:52 Labs: Abnormal Lab Results - Last 24 Hours (Table) 05/12/23 05/13/23 Range/Units 16:57 11:16 POC Glucose (mg/dL) 117 H 143 H (70-110) mg/dL Assessment and Plan Plan: Assessment: 1. Hyponatremia, initially hypovolemic and improved with IV hydration. Component of poor solute intake. Sodium level stable at 130 as of yesterday Now hypervolemic with ascites status post paracentesis this admission. Urine sodium less than 20 and urine osmolality 201. TSH slightly elevated at 5.85. 2. Hypokalemia from poor intake and diuresis. Replaced. Stable. 3. Alcohol-induced liver cirrhosis with ascites. Status post paracentesis with 4 L drained 05/05/2023. 4. Hypoglycemia, improved. 5. Hypotension due to hypovolemia and underlying liver cirrhosis. On midodrine. Cortisol level not low. 6. Urinary retention. Campa catheter now removed. 7. Hypomagnesemia from poor intake. On oral magnesium oxide. Plan: Maintain Lasix and spironolactone. Maintain 1200 mL fluid restriction. Encourage oral intake. Maintain midodrine. Cortisol level not low. Repeat BMP and magnesium level to 3 days postdischarge. Follow up outpatient 1 week post discharge
[2023-05-13 16:59] LABS: Glucose,Whole Blood 98 mg/dL (70-110)
--- NOTE | 2023-05-13 18:37 | P.PN ---
Subjective Progress Note Date: 05/13/23 Hospital course: Patient is a very pleasant 57-year-old male with a past medical history of alcoholic liver cirrhosis, continued alcohol use reporting drinking randal roximately 3 beers every other day, and nicotine dependence. Patient reports last paracentesis was 04/21/23 with removal of 4.5 L of fluid and last alcoholic beverage being 04/28/23. Patient presented to the emergency department via EMS on 04/29/23 secondary to reports of weakness and recurrent falls. Patient was found to be hypoglycemic with blood glucose of 39 and hypotensive with blood pressure 79/45. Patient reported that he takes midodrine 10 mg 3 times daily for treatment of his chronic hypotension resulting from advanced liver cirrhosis, but reported he has not taken this medication in a couple of days. Patient underwent full evaluation in the emergency department. Vital signs reviewed. Blood pressure 79/45, heart rate 82, respiratory rate 18, and SpO2 of 96% on room air. Labs completed and reviewed. CBC showing macrocytic hyperchromic anemia with hemoglobin of 11.0. Coagulation profile revealing elevated PT of 12.8 and INR 1.3. BMP revealing acute on chronic hyponatremia with sodium 121, chloride 88, bicarbonate 18, and severe hypoglycemia with glucose of 39. Liver profile revealing elevated AST of 198 and alkaline phosphatase of 227 and albumin of 2.6. Blood alcohol level was less than 10. A chest x-ray was completed negative for acute cardiopulmonary process. Patient was admitted under our services for symptomatic hypotension, acute on chronic hyponatremia and hypoglycemia. Nephrology was consulted secondary to severe hyponatremia and need for diuresis. Patient underwent successful paracentesis with interventional radiology on 05/05/22 with removal of 4 L of fluid. He was given 25 g of albumin. He remains on midodrine 10 mg every 6 hours with blood pr essures running low but currently stable ranging from 80s to low 100 systolic and 40s to 70s diastolic. Gastroenterology was consulted and recommended patient be placed on Lasix 40 mg by mouth twice daily, Aldactone 50 mg by mouth twice daily, and outpatient follow-up. Physical therapy also evaluated and recommending that patient will need subacute rehab upon discharge due to decreased strength and balance and inability to stand from lower surfaces such as toilet independently. Patient has been accepted to [facility] for rehab and currently awaiting insurance authorization. Physical exam: Patient seen and fully evaluated at bedside this morning. He was resting in bed. Patient continues to have difficulties with ambulation. Patient remains unable to transfer self from bedside commode independently. Patient is able to stand from a raised bed but unable to stand independently from a sitting position in chair or bedside commode. Multiple attempts made for [id number] with insurance company. Plan is for discharge patient to rehab facility, however awaiting insurance authorization. Patient denies having any needs at this time. Vital signs reviewed and stable. General: Nontoxic, no distress and appears stated age. Patient with bruising/ecchymosis surrounding the left orbital region and side of forehead Derm: Skin warm and dry, normal coloration for ethnicity. Patient with multiple bruises and scabs covering upper extremities. Patient with skin tears on bilateral arms Head: Atraumatic, normocephalic and symmetric. Eyes: EOMs intact, no lid lag, and anicteric sclera Mouth: no lip lesions, mucus membranes moist Cardiovascular: regular rate and rhythm with normal S1S2, systolic murmur, positive posterior tibial pulses bilaterally, and cap refill < 2 seconds. Lungs: Respirations even, regular, and unlabored on room air. Lungs CTA bilaterally, no rhonchi, no rales, no wheezing, and no accessory muscle usage. Abdominal: Cirrhotic abdomen, nontender to palpation, no guarding, no appreciable organomegaly Ext: ROM intact. No gross muscle atrophy, 1-2+ pitting bilateral lower extremity edema, no contractures Neuro: Speech clear, face symmetrical and CN II-XII grossly intact with no noted focal neuro deficits Psych: Alert and oriented to person, place, time, and situation. Appropriate and pleasant affect. Assessment and Plan of Care: Symptomatic hypotension, hypotension is secondary to decompensated cirrhosis Alcoholic liver cirrhosis, decompensated with continued alcohol use Acute on chronic hyponatremia, believed to be secondary to decompensated cirrho sis with ascites along with poor oral intake. Bicytopenia secondary to chronic long-term alcohol use and cirrhosis of liver Weakness and recurrent falls Severe protein calorie malnutrition Hypoglycemia, resolved Urinary retention, resolved Hypokalemia, resolved Hypomagnesemia, resolved -Nephrology following and rdiscussed plan of care with student finance advisor, ecommending maintaining Lasix and Aldactone along with 1200 mL fluid restriction. Small Arms Repairer recommending repeat BMP and magnesium level 3 days post discharge and follow up outpatient with office in one week. -For treatment of persistent hypotension, patient to continue midodrine 10 mg every 6 hours with blood pressures running low but currently stable ranging from 80s to low 100 systolic and 40s to 70s diastolic. -Gastroenterology evaluated and started patient on Lasix 40 mg twice daily and Aldactone 50 mg twice daily. -Physical therapy has been following along with patient and recommending that patient will need subacute rehab upon discharge due to decreased strength and balance and inability to stand from lower surfaces such as toilet independently. PT reports patient has been showing improvement and would benefit from subacute rehab placement for continued strength and balance training and improvement on transfers. -Plan is for discharge to [facility] for rehab with continued PT/OT. Reported Unwitnessed Fall during hospitalization -Fall precautions to remain in place. 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 Nicotine dependence. -Nicotine patch 21 mg daily, patient encouraged to stop smoking. Imaging reviewed: No new imaging available for review. Data reviewed: Vital signs reviewed. Blood pressure 86/43, heart rate 74, respiratory rate 16, temp 98.1F, and SpO2 of 100% on room air. CODE STATUS: Full code DVT prophylaxis: Lovenox Discussed with: Patient and RN, and case management. Multiple attempts made for Peer to Peer with insurance company voicemail message left again today . Anticipated discharge date: Pending insurance authorization Anticipated discharge place: [facility] Patient was seen independently by Nurse Practitioner. This document was prepared using [employer] dictation software. Please allow for errors in fabricating machine operator while rare they do occur. I reviewed the documentation as provided by the RANDAL above, who is the original author of this note. I agree with the documented assessment and plan, with the following changes: none Objective - Vital Signs Vital signs: Vital Signs Temp 98.1 F 05/13/23 07:27 Pulse 74 05/13/23 07:27 Resp 16 05/13/23 07:27 BP 86/43 05/13/23 07:27 Pulse Ox 100 05/13/23 07:27 FiO2 21 05/12/23 08:00 Intake & Output 05/12/23 05/13/23 05/13/23 18:59 06:59 18:59 Weight 68.039 kg Other: Voiding Method Bedside Commode Urinal # Voids 4 # Bowel Movements 2 - Labs CBC & Chem 7: 05/14/23 06:38 05/14/23 06:38 Labs: Abnormal Lab Results - Last 24 Hours (Table) 05/12/23 05/12/23 Range/Units 11:23 16:57 POC Glucose (mg/dL) 116 H 117 H (70-110) mg/dL
[2023-05-13 20:00] LABS: Glucose,Whole Blood 134 mg/dL (70-110)
[2023-05-14] MEDS: MIDODRINE 5 MG TAB PO SCH ×5 (00:45→23:58)
[2023-05-14 02:24] LABS: Glucose,Whole Blood 136 mg/dL (70-110)
[2023-05-14 05:54] LABS: Glucose,Whole Blood 98 mg/dL (70-110)
[2023-05-14 10:52] LABS: HGB 9.2 d/dL (13.0-17.0); MCH 34.5 pg (27.0-32.0); MCHC 30.7 d/dL (32.0-37.0); MCV 112.4 FL (80.0-97.0); Mean Platelet Volume 12.3 FL (9.5-12.2); NRBC Per 100 WBC 0 X 10*3/uL (0.00-0.01); Platelet Count 226 X 10*3/uL (140-440); RBC 2.67 X 10*6/uL (4.40-5.60); RDW 16.8 % (11.5-14.5); WBC 7.82 X 10*3/uL (4.50-10.00)
[2023-05-14] MEDS: ENOXAPARIN 40 MG/0.4 ML SYRINGE SQ SCH (10:56)
[2023-05-14] MEDS: THIAMINE 100 MG TAB PO SCH (10:56)
[2023-05-14] MEDS: FOLIC ACID 1 MG TAB PO SCH (10:56)
[2023-05-14] MEDS: FUROSEMIDE 40 MG TAB PO SCH ×2 (10:56→16:29)
[2023-05-14] MEDS: LACTOBACILLUS ACIDOPHILUS/PECT 1 EACH CAPSULE PO SCH ×2 (10:56→20:44)
[2023-05-14] MEDS: SPIRONOLACTONE 25 MG TAB PO SCH ×2 (10:56→20:44)
[2023-05-14] MEDS: MAGNESIUM OXIDE 400 MG TAB PO SCH (10:56)
[2023-05-14] MEDS: MUPIROCIN 2% OINT 22 GM TUBE TOPICAL SCH ×3 (10:57→20:44)
[2023-05-14] MEDS: NICOTINE 21MG/24HR PATCH TRANSDERM SCH (10:57)
[2023-05-14] MEDS: MULTIVITAMINS, THERA 1 EACH TAB PO SCH (10:57)
[2023-05-14 11:04] LABS: BUN/Creat Ratio 23.86 Ratio (12.00-20.00); Blood Urea Nitrogen 16.7 mg/dL (9.0-27.0); Calcium 8.3 mg/dL (8.7-10.3); Chloride 96 mmol/L (96-109); Glucose 76 mg/dL (70-110); Potassium 3.7 mmol/L (3.5-5.5); Sodium 134 mmol/L (135-145)
[2023-05-14 12:50] LABS: Glucose,Whole Blood 136 mg/dL (70-110)
[2023-05-14] MEDS ORDERED: POTASSIUM CHLORIDE ER 20 MEQ TAB.ER PO STA (15:53)
--- NOTE | 2023-05-14 15:54 | P.PN ---
Subjective Patient is seen in follow-up for hyponatremia. Sodium level better. Admits to good urine output. Oral intake fair. Maintained on oral Lasix and spironolactone. Blood pressure stable, remains on lower side. Oral intake is fair. No active complaints. Vital signs are stable. Blood pressure on the lower side. General: No acute distress. HEENT: Head exam is unremarkable. LUNGS: No audible rhonchi or wheezes. HEART: Rate and Rhythm are regular. ABDOMEN: Soft, mild distention. EXTREMITITES: Trace edema. Objective - Vital Signs Vital signs: Vital Signs Temp 97.5 F L 05/14/23 07:47 Pulse 78 05/14/23 07:47 Resp 18 05/14/23 07:47 BP 89/56 05/14/23 07:47 Pulse Ox 98 05/14/23 07:47 FiO2 21 05/13/23 09:03 Intake & Output 05/13/23 05/14/23 05/14/23 18:59 06:59 18:59 Intake Total 118 Balance 118 Intake: Oral 118 Other: Voiding Method Bedside Commode Urinal # Voids 4 2 # Bowel Movements 3 2 - Labs CBC & Chem 7: 05/14/23 06:38 05/14/23 06:38 Labs: Abnormal Lab Results - Last 24 Hours (Table) 05/13/23 05/14/23 05/14/23 Range/Units 19:59 02:23 06:38 RBC (4.40-5.60) X 10*6/uL Hgb (13.0-17.0) d/dL Hct (39.6-50.0) % MCV (80.0-97.0) FL MCH (27.0-32.0) pg MCHC (32.0-37.0) d/dL RDW (11.5-14.5) % MPV (9.5-12.2) FL Sodium 134 L (135-145) mmol/L BUN/Creatinine Ratio 23.86 H (12.00-20.00) Ratio POC Glucose (mg/dL) 134 H 136 H (70-110) mg/dL Calcium 8.3 L (8.7-10.3) mg/dL 05/14/23 05/14/23 Range/Units 06:38 12:49 RBC 2.67 L (4.40-5.60) X 10*6/uL Hgb 9.2 L (13.0-17.0) d/dL Hct 30.0 L (39.6-50.0) % MCV 112.4 H (80.0-97.0) FL MCH 34.5 H (27.0-32.0) pg MCHC 30.7 L (32.0-37.0) d/dL RDW 16.8 H (11.5-14.5) % MPV 12.3 H (9.5-12.2) FL Sodium (135-145) mmol/L BUN/Creatinine Ratio (12.00-20.00) Ratio POC Glucose (mg/dL) 136 H (70-110) mg/dL Calcium (8.7-10.3) mg/dL Assessment and Plan Plan: Assessment: 1. Hyponatremia, initially hypovolemic and improved with IV hydration. Component of poor solute intake. Sodium level better. Now hypervolemic with ascites status post paracentesis this admission. Urine sodium less than 20 and urine osmolality 201. TSH slightly elevated at 5.85. 2. Hypokalemia from poor intake and diuresis. Replaced. Stable. 3. Alcohol-induced liver cirrhosis with ascites. Status post paracentesis with 4 L drained 05/05/2023. 4. Hypoglycemia, improved. 5. Hypotension due to hypovolemia and underlying liver cirrhosis. On midodrine. Cortisol level not low. 6. Urinary retention. Campa catheter removed. 7. Hypomagnesemia from poor intake. On oral magnesium oxide. Plan: Maintain Lasix and spironolactone. Maintain 1200 mL fluid restriction. Replace potassium. Encourage oral intake. Maintain midodrine. Cortisol level not low. Repeat BMP and magnesium level to 3 days postdischarge. Follow up outpatient 1 week post discharge
[2023-05-14 16:34] LABS: Glucose,Whole Blood 118 mg/dL (70-110)
--- NOTE | 2023-05-14 18:53 | P.PN ---
Subjective Progress Note Date: 05/14/23 Hospital course: Patient is a very pleasant 57-year-old male with a past medical history of alcoholic liver cirrhosis, continued alcohol use reporting drinking randal roximately 3 beers every other day, and nicotine dependence. Patient reports last paracentesis was 04/21/23 with removal of 4.5 L of fluid and last alcoholic beverage being 04/28/23. Patient presented to the emergency department via EMS on 04/29/23 secondary to reports of weakness and recurrent falls. Patient was found to be hypoglycemic with blood glucose of 39 and hypotensive with blood pressure 79/45. Patient reported that he takes midodrine 10 mg 3 times daily for treatment of his chronic hypotension resulting from advanced liver cirrhosis, but reported he has not taken this medication in a couple of days. Patient underwent full evaluation in the emergency department. Vital signs reviewed. Blood pressure 79/45, heart rate 82, respiratory rate 18, and SpO2 of 96% on room air. Labs completed and reviewed. CBC showing macrocytic hyperchromic anemia with hemoglobin of 11.0. Coagulation profile revealing elevated PT of 12.8 and INR 1.3. BMP revealing acute on chronic hyponatremia with sodium 121, chloride 88, bicarbonate 18, and severe hypoglycemia with glucose of 39. Liver profile revealing elevated AST of 198 and alkaline phosphatase of 227 and albumin of 2.6. Blood alcohol level was less than 10. A chest x-ray was completed negative for acute cardiopulmonary process. Patient was admitted under our services for symptomatic hypotension, acute on chronic hyponatremia and hypoglycemia. Nephrology was consulted secondary to severe hyponatremia and need for diuresis. Patient underwent successful paracentesis with interventional radiology on 05/05/22 with removal of 4 L of fluid. He was given 25 g of albumin. He remains on midodrine 10 mg every 6 hours with blood pr essures running low but currently stable ranging from 80s to low 100 systolic and 40s to 70s diastolic. Gastroenterology was consulted and recommended patient be placed on Lasix 40 mg by mouth twice daily, Aldactone 50 mg by mouth twice daily, and outpatient follow-up. Physical therapy also evaluated and recommending that patient will need subacute rehab upon discharge due to decreased strength and balance and inability to stand from lower surfaces such as toilet independently. Patient has been accepted to [facility] for rehab and currently awaiting insurance authorization. Physical exam: Patient seen and fully evaluated at bedside this morning. He was resting in bed. Patient remains unable to transfer self from bedside commode or sitting position independently. Vital signs reviewed and stable. General: Nontoxic, no distress and appears stated age. Patient with bruising/ecchymosis surrounding the left orbital region and side of forehead Derm: Skin warm and dry, normal coloration for ethnicity. Patient with multiple bruises and scabs covering upper extremities. Patient with skin tears on bilateral arms Head: Atraumatic, normocephalic and symmetric. Eyes: EOMs intact, no lid lag, and anicteric sclera Mouth: no lip lesions, mucus membranes moist Cardiovascular: regular rate and rhythm with normal S1S2, systolic murmur, positive posterior tibial pulses bilaterally, and cap refill < 2 seconds. Lungs: Respirations even, regular, and unlabored on room air. Lungs CTA bilaterally, no rhonchi, no rales, no wheezing, and no accessory muscle usage. Abdominal: Cirrhotic abdomen, nontender to palpation, no guarding, no appreciable organomegaly Ext: ROM intact. No gross muscle atrophy, 1-2+ pitting bilateral lower extremity edema, no contractures Neuro: Speech clear, face symmetrical and CN II-XII grossly intact with no noted focal neuro deficits Psych: Alert and oriented to person, place, time, and situation. Appropriate and pleasant affect. Assessment and Plan of Care: Symptomatic hypotension, hypotension is secondary to decompensated cirrhosis Alcoholic liver cirrhosis, decompensated with continued alcohol use Acute on chronic hyponatremia, believed to be secondary to decompensated cirrhosis with ascites along with poor oral intake. Bicytopenia secondary to chronic long-term alcohol use and cirrhosis of liver Weakness and recurrent falls Severe protein calorie malnutrition Hypoglycemia, resolved Urinary retention, resolved Hypokalemia, resolved Hypomagnesemia, resolved -Nephrology following and rdiscussed plan of care with public health nutritionist, ecommending maintaining Lasix and Aldactone along with 1200 mL fluid restriction. Vice President Of Recruiting recommending repeat BMP and magnesium level 3 days post discharge and follow up outpatient with office in one week. -For treatment of persistent hypotension, patient to continue midodrine 10 mg every 6 hours with blood pressures running low but currently stable ranging from 80s to low 100 systolic and 40s to 70s diastolic. -Gastroenterology evaluated and started patient on Lasix 40 mg twice daily and Aldactone 50 mg twice daily. -Physical therapy has been following along with patient and recommending that patient will need subacute rehab upon discharge due to decreased strength and balance and inability to stand from lower surfaces such as toilet independently. PT reports patient has been showing improvement and would benefit from subacute rehab placement for continued strength and balance training and improvement on transfers. -Plan is for discharge to [facility] for rehab with continued PT/OT. Reported Unwitnessed Fall during hospitalization -Fall precautions to remain in place. 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 Nicotine dependence. -Nicotine patch 21 mg daily, patient encouraged to stop smoking. Imaging reviewed: No new imaging available for review. Data reviewed: Vital signs reviewed. Blood pressure 89/56, heart rate 78, respiratory rate 18, temp 97.5F, SpO2 of 90% on room air. Morning labs completed and reviewed. CBC showing macrocytic anemia with hemoglobin stable at 9.2. BMP revealing feeling stable sodium of 134 otherwise unremarkable. Blood glucose slightly low this morning at 76 but stable and no further episodes of hypoglycemia have been noted. UPDATE spoke with Dr. Braga and completed [id number] review, was informed patient did not qualify for skilled rehab but does qualify for subacute rehab. Discussed with case management and awaiting placement at this time. CODE STATUS: Full code DVT prophylaxis: Lovenox Discussed with: Patient and RN, and case management. Anticipated discharge date: Pending placement. Anticipated discharge place: [facility] Patient was seen independently by Nurse Practitioner. This document was prepared using [employer] dictation software. Please allow for errors in commodity merchant while rare they do occur. Von Samuel NP rendered care for this patient independently, reviewed the findings and plan as documented in the note above. I did not physically speak with or examine the patient on this date. Objective - Vital Signs Vital signs: Vital Signs Temp 97.5 F L 05/14/23 07:47 Pulse 78 05/14/23 07:47 Resp 18 05/14/23 07:47 BP 89/56 05/14/23 07:47 Pulse Ox 98 05/14/23 07:47 FiO2 21 05/13/23 09:03 Intake & Output 05/13/23 05/14/23 05/14/23 18:59 06:59 18:59 Other: Voiding Method Bedside Commode Urinal # Voids 4 2 # Bowel Movements 3 2 - Labs CBC & Chem 7: 05/14/23 06:38 05/14/23 06:38 Labs: Abnormal Lab Results - Last 24 Hours (Table) 05/13/23 05/13/23 05/14/23 Range/Units 11:16 19:59 02:23 POC Glucose (mg/dL) 143 H 134 H 136 H (70-110) mg/dL
[2023-05-14 20:00] LABS: Glucose,Whole Blood 225 mg/dL (70-110)
[2023-05-15 02:04] LABS: Glucose,Whole Blood 136 mg/dL (70-110)
[2023-05-15] MEDS: MIDODRINE 5 MG TAB PO SCH ×3 (05:28→17:35)
[2023-05-15 05:30] LABS: Glucose,Whole Blood 131 mg/dL (70-110)
[2023-05-15] MEDS: FUROSEMIDE 40 MG TAB PO SCH ×3 (08:26→18:54)
[2023-05-15] MEDS: MAGNESIUM OXIDE 400 MG TAB PO SCH (08:26)
[2023-05-15] MEDS: THIAMINE 100 MG TAB PO SCH (08:26)
[2023-05-15] MEDS: LACTOBACILLUS ACIDOPHILUS/PECT 1 EACH CAPSULE PO SCH ×2 (08:26→20:53)
[2023-05-15] MEDS: ENOXAPARIN 40 MG/0.4 ML SYRINGE SQ SCH (08:26)
[2023-05-15] MEDS: NICOTINE 21MG/24HR PATCH TRANSDERM SCH (08:26)
[2023-05-15] MEDS: SPIRONOLACTONE 25 MG TAB PO SCH ×2 (08:26→20:53)
[2023-05-15] MEDS: FOLIC ACID 1 MG TAB PO SCH (08:26)
[2023-05-15] MEDS: MULTIVITAMINS, THERA 1 EACH TAB PO SCH (08:26)
[2023-05-15] MEDS: MUPIROCIN 2% OINT 22 GM TUBE TOPICAL SCH ×3 (08:27→20:54)
--- NOTE | 2023-05-15 09:49 | P.PN ---
Subjective Progress Note Date: 05/15/23 Hospital course: Patient is a very pleasant 57-year-old male with a past medical history of alcoholic liver cirrhosis, continued alcohol use reporting drinking randal roximately 3 beers every other day, and nicotine dependence. Patient reports last paracentesis was 04/21/23 with removal of 4.5 L of fluid and last alcoholic beverage being 04/28/23. Patient presented to the emergency department via EMS on 04/29/23 secondary to reports of weakness and recurrent falls. Patient was found to be hypoglycemic with blood glucose of 39 and hypotensive with blood pressure 79/45. Patient reported that he takes midodrine 10 mg 3 times daily for treatment of his chronic hypotension resulting from advanced liver cirrhosis, but reported he has not taken this medication in a couple of days. Patient underwent full evaluation in the emergency department. Vital signs reviewed. Blood pressure 79/45, heart rate 82, respiratory rate 18, and SpO2 of 96% on room air. Labs completed and reviewed. CBC showing macrocytic hyperchromic anemia with hemoglobin of 11.0. Coagulation profile revealing elevated PT of 12.8 and INR 1.3. BMP revealing acute on chronic hyponatremia with sodium 121, chloride 88, bicarbonate 18, and severe hypoglycemia with glucose of 39. Liver profile revealing elevated AST of 198 and alkaline phosphatase of 227 and albumin of 2.6. Blood alcohol level was less than 10. A chest x-ray was completed negative for acute cardiopulmonary process. Patient was admitted under our services for symptomatic hypotension, acute on chronic hyponatremia and hypoglycemia. Nephrology was consulted secondary to severe hyponatremia and need for diuresis. Patient underwent successful paracentesis with interventional radiology on 05/05/22 with removal of 4 L of fluid. He was given 25 g of albumin. He remains on midodrine 10 mg every 6 hours with blood pr essures running low but currently stable ranging from 80s to low 100 systolic and 40s to 70s diastolic. Gastroenterology was consulted and recommended patient be placed on Lasix 40 mg by mouth twice daily, Aldactone 50 mg by mouth twice daily, and outpatient follow-up. Physical therapy also evaluated and recommending that patient will need subacute rehab upon discharge due to decreased strength and balance and inability to stand from lower surfaces such as toilet independently. Patient has been accepted to [facility] for rehab and currently awaiting insurance authorization. Physical exam: Patient seen and fully evaluated at bedside this morning. He was resting in bed and denies having any new complaints or concerns.. Vital signs reviewed and stable. General: Nontoxic, no distress and appears stated age. Patient with bruising/ec chymosis surrounding the left orbital region and side of forehead Derm: Skin warm and dry, normal coloration for ethnicity. Patient with multiple bruises and scabs covering upper extremities. Patient with skin tears on bilateral arms Head: Atraumatic, normocephalic and symmetric. Eyes: EOMs intact, no lid lag, and anicteric sclera Mouth: no lip lesions, mucus membranes moist Cardiovascular: regular rate and rhythm with normal S1S2, systolic murmur, positive posterior tibial pulses bilaterally, and cap refill < 2 seconds. Lungs: Respirations even, regular, and unlabored on room air. Lungs CTA bilaterally, no rhonchi, no rales, no wheezing, and no accessory muscle usage. Abdominal: Cirrhotic abdomen, nontender to palpation, no guarding, no appreciable organomegaly Ext: ROM intact. No gross muscle atrophy, 1-2+ pitting bilateral lower extremity edema, no contractures Neuro: Speech clear, face symmetrical and CN II-XII grossly intact with no noted focal neuro deficits Psych: Alert and oriented to person, place, time, and situation. Appropriate and pleasant affect. Assessment and Plan of Care: Symptomatic hypotension, hypotension is secondary to decompensated cirrhosis Alcoholic liver cirrhosis, decompensated with continued alcohol use Acute on chronic hyponatremia, believed to be secondary to decompensated cirrhosis with ascites along with poor oral intake. Bicytopenia secondary to chronic long-term alcohol use and cirrhosis of liver Weakness and recurrent falls Severe protein calorie malnutrition Hypoglycemia, resolved Urinary retention, resolved Hypokalemia, resolved Hypomagnesemia, resolved -Nephrology following and rdiscussed plan of care with gse mechanic, ecommending maintaining Lasix and Aldactone along with 1200 mL fluid restriction. Type Inspector recommending repeat BMP and magnesium level 3 days post discharge and follow up outpatient with office in one week. -For treatment of persistent hypotension, patient to continue midodrine 10 mg every 6 hours with blood pressures running low but currently stable ranging from 80s to low 100 systolic and 40s to 70s diastolic. -Gastroenterology evaluated and started patient on Lasix 40 mg twice daily and Aldactone 50 mg twice daily. -Physical therapy has been following along with patient and recommending that patient will need subacute rehab upon discharge due to decreased strength and balance and inability to stand from lower surfaces such as toilet independently. PT reports patient has been showing improvement and would benefit from subacute rehab placement for continued strength and balance training and improvement on transfers. -Plan is for discharge to [facility] for rehab with continued PT/OT. Reported Unwitnessed Fall during hospitalization -Fall precautions to remain in place. 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 Nicotine dependence. -Nicotine patch 21 mg daily, patient encouraged to stop smoking. Imaging reviewed: No new imaging available for review. Data reviewed: Vital signs reviewed. Blood pressure 90/51, heart rate 75, respiratory rate 17, temp 98.7F, SpO2 98% on room air. UPDATE spoke with Dr. Braga on 05/14/23 and completed [id number] review, was informed patient did not qualify for skilled rehab but does qualify for subacute rehab. Discussed with case management and awaiting placement at this time. CODE STATUS: Full code DVT prophylaxis: Lovenox Discussed with: Patient and RN, and case management. Anticipated discharge date: Pending placement. Anticipated discharge place: [facility] Patient was seen independently by Nurse Practitioner. This document was prepared using [employer] dictation software. Please allow for errors in tail trimmer while rare they do occur. Von Samuel NP rendered care for this patient independently, reviewed the findings and plan as documented in the note above. I did not physically speak with or examine the patient on this date. Objective - Vital Signs Vital signs: Vital Signs Temp 98.7 F 05/15/23 07:08 Pulse 75 05/15/23 07:08 Resp 17 05/15/23 07:08 BP 90/51 05/15/23 07:08 Pulse Ox 98 05/15/23 07:08 FiO2 21 05/13/23 09:03 Intake & Output 05/14/23 05/15/23 05/15/23 18:59 06:59 18:59 Intake Total 118 Balance 118 Intake: Oral 118 Other: Voiding Method Bedside Commode Urinal # Voids 2 # Bowel Movements 1 - Labs CBC & Chem 7: 05/14/23 06:38 05/14/23 06:38 Labs: Abnormal Lab Results - Last 24 Hours (Table) 05/14/23 05/14/23 05/14/23 Range/Units 06:38 06:38 12:49 RBC 2.67 L (4.40-5.60) X 10*6/uL Hgb 9.2 L (13.0-17.0) d/dL Hct 30.0 L (39.6-50.0) % MCV 112.4 H (80.0-97.0) FL MCH 34.5 H (27.0-32.0) pg MCHC 30.7 L (32.0-37.0) d/dL RDW 16.8 H (11.5-14.5) % MPV 12.3 H (9.5-12.2) FL Sodium 134 L (135-145) mmol/L BUN/Creatinine Ratio 23.86 H (12.00-20.00) Ratio POC Glucose (mg/dL) 136 H (70-110) mg/dL Calcium 8.3 L (8.7-10.3) mg/dL 05/14/23 05/14/23 05/15/23 Range/Units 16:33 19:58 02:00 RBC (4.40-5.60) X 10*6/uL Hgb (13.0-17.0) d/dL Hct (39.6-50.0) % MCV (80.0-97.0) FL MCH (27.0-32.0) pg MCHC (32.0-37.0) d/dL RDW (11.5-14.5) % MPV (9.5-12.2) FL Sodium (135-145) mmol/L BUN/Creatinine Ratio (12.00-20.00) Ratio POC Glucose (mg/dL) 118 H 225 H 136 H (70-110) mg/dL Calcium (8.7-10.3) mg/dL 05/15/23 Range/Units 05:27 RBC (4.40-5.60) X 10*6/uL Hgb (13.0-17.0) d/dL Hct (39.6-50.0) % MCV (80.0-97.0) FL MCH (27.0-32.0) pg MCHC (32.0-37.0) d/dL RDW (11.5-14.5) % MPV (9.5-12.2) FL Sodium (135-145) mmol/L BUN/Creatinine Ratio (12.00-20.00) Ratio POC Glucose (mg/dL) 131 H (70-110) mg/dL Calcium (8.7-10.3) mg/dL
[2023-05-15 11:30] LABS: Glucose,Whole Blood 152 mg/dL (70-110)
--- NOTE | 2023-05-15 11:40 | P.PN ---
Subjective Patient is seen in follow-up for hyponatremia. Sodium level better- 134 yesterday. Admits to good urine output. Oral intake fair. Maintained on oral Lasix and spironolactone. Blood pressure stable, remains on lower side. Oral intake is fair. No active complaints. Vital signs are stable. Blood pressure on the lower side. General: No acute distress. HEENT: Head exam is unremarkable. LUNGS: No audible rhonchi or wheezes. HEART: Rate and Rhythm are regular. ABDOMEN: Soft, mild distention. EXTREMITITES: Trace edema. Objective - Vital Signs Vital signs: Vital Signs Temp 98.7 F 05/15/23 07:08 Pulse 75 05/15/23 07:08 Resp 17 05/15/23 07:08 BP 90/51 05/15/23 07:08 Pulse Ox 98 05/15/23 07:08 FiO2 21 05/13/23 09:03 Intake & Output 05/14/23 05/15/23 05/15/23 18:59 06:59 18:59 Intake Total 118 Balance 118 Intake: Oral 118 Other: Voiding Method Bedside Commode Urinal # Voids 2 # Bowel Movements 1 - Labs CBC & Chem 7: 05/14/23 06:38 05/14/23 06:38 Labs: Abnormal Lab Results - Last 24 Hours (Table) 05/14/23 05/14/23 05/14/23 Range/Units 12:49 16:33 19:58 POC Glucose (mg/dL) 136 H 118 H 225 H (70-110) mg/dL 05/15/23 05/15/23 05/15/23 Range/Units 02:00 05:27 11:28 POC Glucose (mg/dL) 136 H 131 H 152 H (70-110) mg/dL Assessment and Plan Plan: Assessment: 1. Hyponatremia, initially hypovolemic and improved with IV hydration. [place] nent of poor solute intake. Sodium level better. Now hypervolemic with ascites status post paracentesis this admission. Urine sodium less than 20 and urine osmolality 201. TSH slightly elevated at 5.85. 2. Hypokalemia from poor intake and diuresis. Replaced. 3. Alcohol-induced liver cirrhosis with ascites. Status post paracentesis with 4 L drained 05/05/2023. 4. Hypoglycemia, improved. 5. Hypotension due to hypovolemia and underlying liver cirrhosis. On midodrine. Cortisol level not low. 6. Urinary retention. Campa catheter removed. 7. Hypomagnesemia from poor intake. On oral magnesium oxide. Plan: Maintain Lasix and spironolactone. Maintain 1200 mL fluid restriction. Encourage oral intake. Maintain midodrine. Cortisol level not low. Repeat BMP and magnesium level to 3 days postdischarge. Follow up outpatient 1 week post discharge
[2023-05-15 16:49] LABS: Glucose,Whole Blood 127 mg/dL (70-110)
[2023-05-15 20:25] LABS: Glucose,Whole Blood 151 mg/dL (70-110)
[2023-05-16] MEDS: MIDODRINE 5 MG TAB PO SCH ×5 (00:05→23:14)
[2023-05-16 02:26] LABS: Glucose,Whole Blood 126 mg/dL (70-110)
[2023-05-16 06:15] LABS: Glucose,Whole Blood 131 mg/dL (70-110)
[2023-05-16] MEDS: SPIRONOLACTONE 25 MG TAB PO SCH ×2 (09:02→20:17)
[2023-05-16] MEDS: LACTOBACILLUS ACIDOPHILUS/PECT 1 EACH CAPSULE PO SCH ×2 (09:02→20:17)
[2023-05-16] MEDS: MAGNESIUM OXIDE 400 MG TAB PO SCH (09:03)
[2023-05-16] MEDS: NICOTINE 21MG/24HR PATCH TRANSDERM SCH (09:03)
[2023-05-16] MEDS: FOLIC ACID 1 MG TAB PO SCH (09:03)
[2023-05-16] MEDS: FUROSEMIDE 40 MG TAB PO SCH ×2 (09:03→15:18)
[2023-05-16] MEDS: ENOXAPARIN 40 MG/0.4 ML SYRINGE SQ SCH (09:03)
[2023-05-16] MEDS: MULTIVITAMINS, THERA 1 EACH TAB PO SCH (09:03)
[2023-05-16] MEDS: THIAMINE 100 MG TAB PO SCH (09:03)
[2023-05-16] MEDS: MUPIROCIN 2% OINT 22 GM TUBE TOPICAL SCH ×3 (09:10→20:18)
--- NOTE | 2023-05-16 10:47 | P.DS ---
Providers Date of admission: 04/29/23 17:39 Expected date of discharge: 05/16/23 Attending physician: Juan M Britton MD Consults: 04/29/23 18:54 Consult Physician Urgent Consulting Provider: Samson Gar Consult Reason/Comments: acute on chronic hyponatremia Do you want consulting provider notified?: Already Contacted Primary care physician: Stated None Hospital Course: Discharge Diagnosis: Symptomatic hypotension, secondary to decompensated cirrhosis. Patient was evaluated by a tab cutting machine operator and rectifying operator. He underwent two paracentesis' during this admission. Midodrine was increased to 10 mg every 6 hours and patient was started on Aldactone 50 mg twice daily and Lasix 40 mg twice daily. Alcoholic liver cirrhosis, decompensated Acute on chronic hyponatremia, believed to be secondary to decompensated cirrhosis with ascites along with poor oral intake. Stable with sodium of 134 upon discharge. 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 Nicotine dependence. Nicotine patch 21 mg daily, patient encouraged to stop smoking. Hospital Course: Patient is a very pleasant 57-year-old male with a past medical history of alcoholic liver cirrhosis, continued alcohol use reporting drinking approximately 3 beers every other day, and nicotine dependence. Patient reports last paracentesis was 04/21/23 with removal of 4.5 L of fluid and last alcoholic beverage being 04/28/23. Patient presented to the emergency department via EMS on 04/29/23 secondary to reports of weakness and recurrent falls. Patient was found to be hypoglycemic with blood glucose of 39 and hypotensive with blood pressure 79/45. Patient reported that he takes midodrine 10 mg 3 times daily for treatme nt of his chronic hypotension resulting from advanced liver cirrhosis, but reported he has not taken this medication in a couple of days. Patient underwent full evaluation in the emergency department. Vital signs reviewed. Blood pressure 79/45, heart rate 82, respiratory rate 18, and SpO2 of 96% on room air. Labs completed and reviewed. CBC showing macrocytic hyperchromic anemia with hemoglobin of 11.0. Coagulation profile revealing elevated PT of 12.8 and INR 1.3. BMP revealing acute on chronic hyponatremia with sodium 121, chloride 88, bicarbonate 18, and severe hypoglycemia with glucose of 39. Liver profile revealing elevated AST of 198 and alkaline phosphatase of 227 and albumin of 2.6. Blood alcohol level was less than 10. A chest x-ray was completed negative for acute cardiopulmonary process. Patient was admitted under our services for symptomatic hypotension, acute on chronic hyponatremia and hypoglycemia. Nephrology was consulted secondary to severe hyponatremia and need for diuresis. Patient underwent successful paracentesis with interventional radiology on 05/05/22 with removal of 4 L of fluid. He was given 25 g of albumin. He remains on midodrine 10 mg every 6 hours with blood pressures running low but currently stable ranging from 80s to low 100 systolic and 40s to 70s diastolic. Gastroenterology was consulted and recommended patient be placed on Lasix 40 mg by mouth twice daily, Aldactone 50 mg by mouth twice daily, and outpatient follow-up. Physical therapy also evaluated and recommending that patient will need subacute rehab upon discharge due to decreased strength and balance and inability to stand from lower surfaces such as toilet independently. Patient has been accepted to [facility] for rehab and currently awaiting insurance authorization. Peer to Peer interview was completed with Dr. Braga on 05/14/23 at 11:[address] Braga stated patient did not qualify for skilled rehab but does qualify for subacute rehab. Discussed with case management and awaiting placement at this time. Received notification this morning that patient has been approved and just waiting on paperwork to put discharge in. Patient updated on acceptance to facility and plans for transfer later today. Patient medically stable for discharge at this time. Patient to follow-up with and establish care with a PCP, rectifying operator, and tab cutting machine operator. Physical exam: Patient seen and fully evaluated at bedside this morning. He was resting in bed and denies having any new complaints or concerns.. Vital signs reviewed and stable. General: Nontoxic, no distress and appears stated age. Patient with bruising/ecchymosis surrounding the left orbital region and side of forehead Derm: Skin warm and dry, normal coloration for ethnicity. Patient with multiple bruises and scabs covering upper extremities. Patient with skin tears on bilateral arms Head: Atraumatic, normocephalic and symmetric. Eyes: EOMs intact, no lid lag, and anicteric sclera Mouth: no lip lesions, mucus membranes moist Cardiovascular: regular rate and rhythm with normal S1S2, systolic murmur, positive posterior tibial pulses bilaterally, and cap refill < 2 seconds. Lungs: Respirations even, regular, and unlabored on room air. Lungs CTA bilaterally, no rhonchi, no rales, no wheezing, and no accessory muscle usage. Abdominal: Cirrhotic abdomen, nontender to palpation, no guarding, no appreciable organomegaly Ext: ROM intact. No gross muscle atrophy, 1-2+ pitting bilateral lower extremity edema, no contractures Neuro: Speech clear, face symmetrical and CN II-XII grossly intact with no noted focal neuro deficits Psych: Alert and oriented to person, place, time, and situation. Appropriate and pleasant affect. A total of 36 minutes of time were spent preparing this complex discharge summary. Pt was discharged on 05/16/23 at 10:45 AM Patient was seen independently by Nurse Practitioner. This document was prepared using [employer] dictation software. Please allow for errors in electronic parts salesperson while rare they do occur. Von Samuel NP rendered care for this patient independently, reviewed the findings and plan as documented in the note above. I did not physically speak with or examine the patient on this date. Patient Condition at Discharge: Stable Plan - Discharge Summary New Discharge Prescriptions: New Folic Acid 1 mg PO DAILY tab Multivitamins, Thera [Multivitamin (formulary)] 1 each PO DAILY tab Midodrine [ProAmatine] 10 mg PO Q6HR tab Thiamine [Vitamin B-1] 100 mg PO DAILY tab Spironolactone [Aldactone] 50 mg PO BID tab Loperamide [Imodium] 2 mg PO QID PRN cap PRN Reason: Diarrhea Furosemide [Lasix] 40 mg PO BID@0900,1600 tab Magnesium Oxide [Mag-Ox] 400 mg PO DAILY tab Discontinued Midodrine [ProAmatine] 10 mg PO AC-TID #90 tab Discharge Medication List Folic Acid 1 mg PO DAILY tab 05/16/23 [Rx] Furosemide [Lasix] 40 mg PO BID@0900,1600 tab 05/16/23 [Rx] Loperamide [Imodium] 2 mg PO QID PRN cap 05/16/23 [Rx] Magnesium Oxide [Mag-Ox] 400 mg PO DAILY tab 05/16/23 [Rx] Midodrine [ProAmatine] 10 mg PO Q6HR tab 05/16/23 [Rx] Multivitamins, Thera [Multivitamin (formulary)] 1 each PO DAILY tab 05/16/23 [Rx] Spironolactone [Aldactone] 50 mg PO BID tab 05/16/23 [Rx] Thiamine [Vitamin B-1] 100 mg PO DAILY tab 05/16/23 [Rx] Follow up Appointment(s)/Referral(s): Sarai Hilliard MD [STAFF PHYSICIAN] - 05/19/23 3:45 pm Samson Gar DO [STAFF PHYSICIAN] - 1 Week [facility] [REFERRING] - 1 Week (Please call for follow-up appointment.) Ambulatory/Diagnostic Orders: Basic Metabolic Panel [LAB.AMB] Time Frame: 3 Days, Location: None Selected Activity/Diet/Wound Care/Special Instructions: Activity: As tolerated. Take breaks as needed. Patient continues to need assistance from sitting to standing positions. Diet: Heart healthy and carb consistent diet. Avoid salts, or foods with hidden salts such as canned or boxed foods and frozen dinners. Extra salt makes your heart work harder and traps the fluid in your body for longer. Special Instructions: Take all of your medications as directed and remember to keep all of your doctor's appointments and follow-up as needed. Thank you for allowing us to participate in your care, it was truly a pleasure having you for our patient!!! And thank you again for your service, it is always an honor to provide care for !!!! [facility] [address], [address], [place], [address]; phone #[phone] Health and Human Services [place] Navigator: Irma; phone #[phone] Discharge/Stand Alone Forms: Area PCPs Discharge Disposition: TRANSFER TO SNF/ECF
[2023-05-16 11:37] LABS: Glucose,Whole Blood 110 mg/dL (70-110)
--- NOTE | 2023-05-16 11:50 | P.PN ---
Subjective Patient is seen in follow-up for hyponatremia. Sodium level better- 134 dated 05/14/23. Admits to good urine output. Oral intake fair. Maintained on oral Lasix and spironolactone. Blood pressure stable, remains on lower side. Oral intake is fair. No active complaints. Vital signs are stable. Blood pressure on the lower side. General: No acute distress. HEENT: Head exam is unremarkable. LUNGS: No audible rhonchi or wheezes. HEART: Rate and Rhythm are regular. ABDOMEN: Soft, mild distention. EXTREMITITES: No edema. Objective - Vital Signs Vital signs: Vital Signs Temp 98.8 F 05/16/23 08:31 Pulse 85 05/16/23 08:31 Resp 18 05/16/23 08:31 BP 101/66 05/16/23 11:29 Pulse Ox 97 05/16/23 08:31 FiO2 21 05/13/23 09:03 Intake & Output 05/15/23 05/16/23 05/16/23 18:59 06:59 18:59 Weight 68.039 kg Other: Voiding Method Bedside Commode Urinal # Voids 1 4 1 # Bowel Movements 2 - Labs CBC & Chem 7: 05/14/23 06:38 05/14/23 06:38 Labs: Abnormal Lab Results - Last 24 Hours (Table) 05/15/23 05/15/23 05/16/23 Range/Units 16:47 20:23 02:23 POC Glucose (mg/dL) 127 H 151 H 126 H (70-110) mg/dL 05/16/23 Range/Units 06:12 POC Glucose (mg/dL) 131 H (70-110) mg/dL Assessment and Plan Plan: Assessment: 1. Hyponatremia, initially hypovolemic and improved with IV hydration. Component of poor solute intake. Sodium level better. Now hypervolemic with ascites status post paracentesis this admission. Urine sodium less than 20 and urine osmolality 201. TSH slightly elevated at 5.85. 2. Hypokalemia from poor intake and diuresis. Replaced. 3. Alcohol-induced liver cirrhosis with ascites. Status post paracentesis with 4 L drained 05/05/2023. 4. Hypoglycemia, improved. 5. Hypotension due to hypovolemia and underlying liver cirrhosis. On midodrine. Cortisol level not low. 6. Urinary retention. Campa catheter removed. 7. Hypomagnesemia from poor intake. On oral magnesium oxide. Plan: Maintain Lasix and spironolactone. Maintain 1200 mL fluid restriction. Encourage oral intake. Maintain midodrine. Cortisol level not low. Repeat BMP and magnesium level to 3 days postdischarge. Follow up outpatient 1 week post discharge
[2023-05-16 16:29] LABS: Glucose,Whole Blood 117 mg/dL (70-110)
[2023-05-16 20:48] LABS: Glucose,Whole Blood 148 mg/dL (70-110)
[2023-05-17 06:00] LABS: Glucose,Whole Blood 107 mg/dL (70-110)
[2023-05-17] MEDS: MIDODRINE 5 MG TAB PO SCH ×2 (06:01→11:48)
[2023-05-17] MEDS: MULTIVITAMINS, THERA 1 EACH TAB PO SCH (07:42)
[2023-05-17] MEDS: MAGNESIUM OXIDE 400 MG TAB PO SCH (07:42)
[2023-05-17] MEDS: FOLIC ACID 1 MG TAB PO SCH (07:42)
[2023-05-17] MEDS: THIAMINE 100 MG TAB PO SCH (07:42)
[2023-05-17] MEDS: NICOTINE 21MG/24HR PATCH TRANSDERM SCH (07:42)
[2023-05-17] MEDS: SPIRONOLACTONE 25 MG TAB PO SCH (07:42)
[2023-05-17] MEDS: FUROSEMIDE 40 MG TAB PO SCH ×2 (07:42→16:20)
[2023-05-17] MEDS: LACTOBACILLUS ACIDOPHILUS/PECT 1 EACH CAPSULE PO SCH (07:42)
[2023-05-17] MEDS: ENOXAPARIN 40 MG/0.4 ML SYRINGE SQ SCH (07:43)
[2023-05-17] MEDS: MUPIROCIN 2% OINT 22 GM TUBE TOPICAL SCH (07:48)
[2023-05-17 11:13] LABS: Glucose,Whole Blood 133 mg/dL (70-110)
[2023-05-17 14:26] VITALS: BP 95/57; PULSE 74; RESP 18; TEMP 98.7
--- NOTE | 2023-05-17 15:08 | P.DS ---
Providers Date of admission: 04/29/23 17:39 Expected date of discharge: 05/17/23 Attending physician: Juan M Britton MD Consults: 04/29/23 18:54 Consult Physician Urgent Consulting Provider: Samson Gar Consult Reason/Comments: acute on chronic hyponatremia Do you want consulting provider notified?: Already Contacted Primary care physician: Stated None Hospital Course: Discharge Diagnosis: Symptomatic hypotension, secondary to decompensated cirrhosis. 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 He underwent two paracentesis' during this admission. Midodrine was increased to 10 mg every 6 hours and patient was started on Aldactone 50 mg twice daily and Lasix 40 mg twice daily. Alcoholic liver cirrhosis, decompensated Acute on chronic hyponatremia, believed to be secondary to decompensated cirrhosis with ascites along with poor oral intake. Stable with sodium of 134 upon discharge. 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 Nicotine dependence. Nicotine patch 21 mg daily, patient encouraged to stop smoking. Hospital Course: Patient is a very pleasant 57-year-old male with a past medical history of alcoholic liver cirrhosis, continued alcohol use reporting drinking approximately 3 beers every other day, and nicotine dependence. Patient reports last paracentesis was 04/21/23 with removal of 4.5 L of fluid and last alcoholic beverage being 04/28/23. Patient presented to the emergency department via EMS on 04/29/23 secondary to reports of weakness and recurrent falls. Patient was found to be hypoglycemic with blood glucose of 39 and hypotensive with blood pressure 79/45. Patient reported that he takes midodrine 10 mg 3 times daily for treatme nt of his chronic hypotension resulting from advanced liver cirrhosis, but reported he has not taken this medication in a couple of days. Patient underwent full evaluation in the emergency department. Vital signs reviewed. Blood pressure 79/45, heart rate 82, respiratory rate 18, and SpO2 of 96% on room air. Labs completed and reviewed. CBC showing macrocytic hyperchromic anemia with hemoglobin of 11.0. Coagulation profile revealing elevated PT of 12.8 and INR 1.3. BMP revealing acute on chronic hyponatremia with sodium 121, chloride 88, bicarbonate 18, and severe hypoglycemia with glucose of 39. Liver profile revealing elevated AST of 198 and alkaline phosphatase of 227 and albumin of 2.6. Blood alcohol level was less than 10. A chest x-ray was completed negative for acute cardiopulmonary process. Patient was admitted under our services for symptomatic hypotension, acute on chronic hyponatremia and hypoglycemia. Nephrology was consulted secondary to severe hyponatremia and need for diuresis. Patient underwent successful paracentesis with interventional radiology on 05/05/22 with removal of 4 L of fluid. He was given 25 g of albumin. He remains on midodrine 10 mg every 6 hours with blood pressures running low but currently stable ranging from 80s to low 100 systolic and 40s to 70s diastolic. Gastroenterology was consulted and recommended patient be placed on Lasix 40 mg by mouth twice daily, Aldactone 50 mg by mouth twice daily, and outpatient follow-up. Physical therapy also evaluated and recommending that patient will need subacute rehab upon discharge due to decreased strength and balance and inability to stand from lower surfaces such as toilet independently. Patient has been accepted to [facility] for rehab and currently awaiting insurance authorization. Peer to Peer interview was completed with Dr. Braga on 05/14/23 at 11:[address] Braga stated patient did not qualify for skilled rehab but does qualify for subacute rehab. Discussed with case management and awaiting placement at this time. Pt has been accepted to [facility] and received notice that insurace authorization has been obtained. Patient medically stable for discharge at this time. Patient to follow-up with and establish care with a PCP at [facility], oil well fishing tool operator, and site lead. Physical exam: Patient seen and fully evaluated at bedside this morning. He was resting in bed and denies having any new complaints or concerns.. Vital signs reviewed and stable. General: Nontoxic, no distress and appears stated age. Patient with bruising/ecchymosis surrounding the left orbital region and side of forehead Derm: Skin warm and dry, normal coloration for ethnicity. Patient with multiple bruises and scabs covering upper extremities. Patient with skin tears on bilateral arms Head: Atraumatic, normocephalic and symmetric. Eyes: EOMs intact, no lid lag, and anicteric sclera Mouth: no lip lesions, mucus membranes moist Cardiovascular: regular rate and rhythm with normal S1S2, systolic murmur, positive posterior tibial pulses bilaterally, and cap refill < 2 seconds. Lungs: Respirations even, regular, and unlabored on room air. Lungs CTA bilaterally, no rhonchi, no rales, no wheezing, and no accessory muscle usage. Abdominal: Cirrhotic abdomen, nontender to palpation, no guarding, no appreciable organomegaly Ext: ROM intact. No gross muscle atrophy, 1-2+ pitting bilateral lower extremity edema, no contractures Neuro: Speech clear, face symmetrical and CN II-XII grossly intact with no noted focal neuro deficits Psych: Alert and oriented to person, place, time, and situation. Appropriate and pleasant affect. A total of 36 minutes of time were spent preparing this complex discharge summary. Pt was discharged on 05/16/23 at 10:45 AM Patient was seen independently by Nurse Practitioner. This document was prepared using [employer] dictation software. Please allow for errors in banana ripening room supervisor while rare they do occur. Von Samuel NP rendered care for this patient independently, reviewed the findings and plan as documented in the note above. I did not physically speak with or examine the patient on this date. Patient Condition at Discharge: Stable Plan - Discharge Summary New Discharge Prescriptions: New Folic Acid 1 mg PO DAILY tab Multivitamins, Thera [Multivitamin (formulary)] 1 each PO DAILY tab Midodrine [ProAmatine] 10 mg PO Q6HR tab Thiamine [Vitamin B-1] 100 mg PO DAILY tab Spironolactone [Aldactone] 50 mg PO BID tab Loperamide [Imodium] 2 mg PO QID PRN cap PRN Reason: Diarrhea Furosemide [Lasix] 40 mg PO BID@0900,1600 tab Magnesium Oxide [Mag-Ox] 400 mg PO DAILY tab Discontinued Midodrine [ProAmatine] 10 mg PO AC-TID #90 tab Discharge Medication List Folic Acid 1 mg PO DAILY tab 05/16/23 [Rx] Furosemide [Lasix] 40 mg PO BID@0900,1600 tab 05/16/23 [Rx] Loperamide [Imodium] 2 mg PO QID PRN cap 05/16/23 [Rx] Magnesium Oxide [Mag-Ox] 400 mg PO DAILY tab 05/16/23 [Rx] Midodrine [ProAmatine] 10 mg PO Q6HR tab 05/16/23 [Rx] Multivitamins, Thera [Multivitamin (formulary)] 1 each PO DAILY tab 05/16/23 [Rx] Spironolactone [Aldactone] 50 mg PO BID tab 05/16/23 [Rx] Thiamine [Vitamin B-1] 100 mg PO DAILY tab 05/16/23 [Rx] Follow up Appointment(s)/Referral(s): Sarai Hilliard MD [STAFF PHYSICIAN] - 05/19/23 3:45 pm Samson Gar DO [STAFF PHYSICIAN] - 1 Week [facility] [REFERRING] - 1 Week (Please call for follow-up appointment.) Ambulatory/Diagnostic Orders: Basic Metabolic Panel [LAB.AMB] Time Frame: 3 Days, Location: None Selected Activity/Diet/Wound Care/Special Instructions: Activity: As tolerated. Take breaks as needed. Patient continues to need assistance from sitting to standing positions. Diet: Heart healthy and carb consistent diet. Avoid salts, or foods with hidden salts such as canned or boxed foods and frozen dinners. Extra salt makes your heart work harder and traps the fluid in your body for longer. Special Instructions: Take all of your medications as directed and remember to keep all of your doctor's appointments and follow-up as needed. Thank you for allowing us to participate in your care, it was truly a pleasure having you for our patient!!! And thank you again for your service, it is always an honor to provide care for !!!! [facility] [address], [address], [place], [address]; phone #[phone] [facility] [place] Navigator: Irma; phone #[phone] Discharge/Stand Alone Forms: Area PCPs Discharge Disposition: TRANSFER TO SNF/ECF
== END 2023-05-17 16:57 | DRG 432 ==
LOC: EC 13:59 → 4SSUR 17:39
PROVIDERS: ADMIT Internal Medicine; ATTEND Internal Medicine
PROC: 0W9G3ZZ Drainage of Peritoneal Cavity, Percutaneous Approach (ICD-10-PCS; principal; 2023-05-06)
DX: K70.31 Alcoholic cirrhosis of liver with ascites (principal); E43 Unspecified severe protein-calorie malnutrition; E87.1 Hypo-osmolality and hyponatremia; I95.89 Other hypotension; D53.9 Nutritional anemia, unspecified; E16.2 Hypoglycemia, unspecified; D69.59 Other secondary thrombocytopenia; R29.6 Repeated falls; Z68.22 Body mass index [BMI] 22.0-22.9, adult; E83.42 Hypomagnesemia; E87.6 Hypokalemia; Y92.239 Unspecified place in hospital as the place of occurrence of the external cause; E86.1 Hypovolemia; E87.70 Fluid overload, unspecified; F17.210 Nicotine dependence, cigarettes, uncomplicated; I10 Essential (primary) hypertension; M19.012 Primary osteoarthritis, left shoulder; R33.9 Retention of urine, unspecified; W18.30XA Fall on same level, unspecified, initial encounter; Y92.002 Bathroom of unspecified non-institutional (private) residence as the place of occurrence of the external cause; Z59.02 Unsheltered homelessness; Z59.82 Transportation insecurity; Z66 Do not resuscitate; Z79.899 Other long term (current) drug therapy; Z91.81 History of falling
CPT/HCPCS: 36415; 49083; 70450; 71046; 76705; 80048; 80053; 80320; 82533; 83036; 83605; 83735; 83880; 83930; 83935; 84100; 84295; 84300; 84439; 84443; 84484; 85025; 85027; 85610; 85730; 93005; 94760; 96360; 96361; 99285

== ENCOUNTER 2024-05-31 18:02 | Emergency (ER) | payer OTHER ==
[2024-05-31 18:13] VITALS: BP 114/86; PULSE 77; RESP 18; TEMP 97.7
--- NOTE | 2024-05-31 18:21 | ED ---
Abdominal Pain HPI - General Chief Complaint: Abdominal Pain Stated Complaint: R Side Rib Pain Time Seen by Provider: 05/31/24 18:20 Source: patient, EMS, RN notes reviewed Mode of arrival: EMS Limitations: no limitations - History of Present Illness Initial Comments: 58-year-old male with a history of alcoholic liver cirrhosis presents the emergency department with a chief complaint of right upper quadrant abdominal and rib pain has been present over the last few days. States he is also been feeling nauseous as well. [facility] and is reluctant to stay for further testing due to concern for possibly losing [facility]. Patient states that he would like to leave at this time. - Related Data Previous Rx's Medication Instructions Recorded Folic Acid 1 mg PO DAILY tab 05/16/23 Furosemide [Lasix] 40 mg PO BID@0900,1600 tab 05/16/23 Loperamide [Imodium] 2 mg PO QID PRN cap 05/16/23 Magnesium Oxide [Mag-Ox] 400 mg PO DAILY tab 05/16/23 Midodrine [ProAmatine] 10 mg PO Q6HR tab 05/16/23 Multivitamins, Thera [Multivitamin 1 each PO DAILY tab 05/16/23 (formulary)] Spironolactone [Aldactone] 50 mg PO BID tab 05/16/23 Thiamine [Vitamin B-1] 100 mg PO DAILY tab 05/16/23 Allergies Allergy/AdvReac Type Severity Reaction Status Date / Time No Known Allergies Allergy Verified 04/29/23 15:24 Review of Systems ROS Statement: Those systems with pertinent positive or pertinent negative responses have been documented in the HPI. ROS Other: All systems not noted in ROS Statement are negative. Past Medical History Past Medical History: GI Bleed, Liver Disease Additional Past Medical History / Comment(s): Alcohol abuse, smoker, Pt says that he got out of [facility] February 2024 "learning how to walk" refuses to disclose reason. History of Any Multi-Drug Resistant Organisms: None Reported Past Surgical History: No Surgical Hx Reported Additional Past Surgical History / Comment(s): Paracentesis 04/21/2023 Past Anesthesia/Blood Transfusion Reactions: No Reported Reaction Past Psychological History: No Psychological Hx Reported Smoking Status: Current every day smoker Past Alcohol Use History: Daily Past Drug Use History: None Reported - Past Family History Mother Family Medical History: Hypertension General Exam - General Exam Comments Initial Comments: Unable to complete physical examination due to patient declining. Limitations: no limitations Course Vital Signs 05/31/24 18:03 Temperature 97.7 F Pulse Rate 77 Respiratory 18 Rate Blood Pressure 114/86 O2 Sat by Pulse 96 Oximetry Medical Decision Making - Medical Decision Making Unable to complete full medical decision-making due to patient leaving as medical advice. Disposition Clinical Impression: Left against medical advice Disposition: HOME SELF-CARE Condition: Undetermined Is patient prescribed a controlled substance at d/c from ED?: No Referrals: None,Stated [Primary Care Provider] - 1-2 days Time of Disposition: 18:49
== END 2024-05-31 18:51 | disposition home or self-care (01) ==
LOC: EC 18:02
DX: Z53.29 Procedure and treatment not carried out because of patient's decision for other reasons (principal); F17.200 Nicotine dependence, unspecified, uncomplicated
CPT/HCPCS: 99284

== ENCOUNTER 2024-06-02 20:32 | Emergency (ER) | payer OTHER ==
--- NOTE | 2024-06-02 20:57 | ED ---
Abdominal Pain HPI <Marla Contreras - Last Filed: 06/03/24 00:21> <Renetta Cuevas - Last Filed: 06/03/24 19:57> - General Stated Complaint: Abdominal Pain Time Seen by Provider: 06/02/24 20:55 - History of Present Illness Initial Comments: 58-year-old male with history of alcoholic liver cirrhosis presenting with right upper quadrant abdominal pain x 3 days with associated nausea and diarrhea. Patient states he was seen in the ER 2 days ago for same symptoms, however left AGAINST MEDICAL ADVICE as he had an appointment he could not miss. He has never had this pain before. Denies alleviation or exacerbation with food. Denies history of abdominal surgeries. Denies fever, chills, chest pain. (Marla Contreras) - Related Data Previous Rx's Medication Instructions Recorded Folic Acid 1 mg PO DAILY tab 05/16/23 Furosemide [Lasix] 40 mg PO BID@0900,1600 tab 05/16/23 Loperamide [Imodium] 2 mg PO QID PRN cap 05/16/23 Magnesium Oxide [Mag-Ox] 400 mg PO DAILY tab 05/16/23 Midodrine [ProAmatine] 10 mg PO Q6HR tab 05/16/23 Multivitamins, Thera [Multivitamin 1 each PO DAILY tab 05/16/23 (formulary)] Spironolactone [Aldactone] 50 mg PO BID tab 05/16/23 Thiamine [Vitamin B-1] 100 mg PO DAILY tab 05/16/23 Allergies Allergy/AdvReac Type Severity Reaction Status Date / Time No Known Allergies Allergy Verified 06/02/24 21:28 Review of Systems ROS Other: All systems not noted in ROS Statement are negative. <Marla Contreras - Last Filed: 06/03/24 00:21> ROS Other: All systems not noted in ROS Statement are negative. <Renetta Cuevas - Last Filed: 06/03/24 19:57> ROS Statement: Those systems with pertinent positive or pertinent negative responses have been documented in the HPI. Past Medical History Past Medical History: GI Bleed, Liver Disease Additional Past Medical History / Comment(s): Alcohol abuse, smoker, Pt says that he got out of [facility] February 2024 "learning how to walk" refuses to disclose reason. History of Any Multi-Drug Resistant Organisms: None Reported Past Surgical History: No Surgical Hx Reported Additional Past Surgical History / Comment(s): Paracentesis 04/21/2023 Past Anesthesia/Blood Transfusion Reactions: No Reported Reaction Past Psychological History: No Psychological Hx Reported Smoking Status: Current every day smoker Past Alcohol Use History: Daily Past Drug Use History: None Reported - Past Family History Mother Family Medical History: Hypertension <Marla Contreras - Last Filed: 06/03/24 00:21> General Exam General appearance: alert, in no apparent distress Head exam: Present: atraumatic, normocephalic, normal inspection Eye exam: Present: normal appearance, PERRL, EOMI. Absent: scleral icterus, conjunctival injection, periorbital swelling Neck exam: Present: normal inspection. Absent: tenderness, meningismus, lymphadenopathy Respiratory exam: Present: normal lung sounds bilaterally. Absent: respiratory distress, wheezes, rales, rhonchi, stridor Cardiovascular Exam: Present: regular rate, normal rhythm, normal heart sounds. Absent: systolic murmur, diastolic murmur, rubs, gallop, clicks GI/Abdominal exam: Present: soft, tenderness (Mild right upper quadrant tenderness to palpation), normal bowel sounds. Absent: distended, guarding, rebound, rigid Back exam: Absent: CVA tenderness (R), CVA tenderness (L) Neurological exam: Present: alert, oriented X3 Psychiatric exam: Present: normal affect, normal mood Skin exam: Present: warm, dry, intact, normal color. Absent: rash <Marla Contreras - Last Filed: 06/03/24 00:21> - General Exam Comments Initial Comments: Visual Physical Exam General: Well-appearing, nontoxic, no acute distress. Head: Normocephalic, atraumatic Eyes: PERRLA, EOMI ENT: Airway patent Chest: Nonlabored breathing Skin: No visual rash, normal skin tone Neuro: Alert and oriented 3 Musculoskeletal: No gross abnormalities (Marla Contreras) Course Vital Signs 06/02/24 06/02/24 06/03/24 21:26 23:59 01:57 Temperature 97.5 F L 97.7 F Pulse Rate 71 66 67 Respiratory 19 16 16 Rate Blood Pressure 111/69 106/61 102/64 O2 Sat by Pulse 97 97 96 Oximetry 06/03/24 02:54 Temperature 97.8 F Pulse Rate 65 Respiratory 18 Rate Blood Pressure 111/70 O2 Sat by Pulse 96 Oximetry Medical Decision Making - Lab Data Result diagrams: 06/02/24 21:47 06/02/24 21:47 - EKG Data -: EKG Interpreted by Me <Marla Contreras - Last Filed: 06/03/24 00:21> - Lab Data Result diagrams: 06/02/24 21:47 06/02/24 21:47 <Renetta Cuevas - Last Filed: 06/03/24 19:57> - Medical Decision Making I completed the quick note portion of this chart signed Marla Contreras PA-C Was pt. sent in by a medical professional or institution (, PA, [employer], urgent care, hospital, or fci...) When possible be specific @ -[No] Did you speak to anyone other than the patient for history (EMS, parent, family, police, friend...)? What history was obtained from this source @ -[No] Did you review nursing and triage notes (agree or disagree)? Why? @ -[I reviewed and agree with nursing and triage notes] Were old charts reviewed (outside hosp., previous admission, EMS record, old EKG, old radiological studies, urgent care reports/EKG's, fci records)? Report findings @ -[No old charts were reviewed] Differential Diagnosis (chest pain, altered mental status, abdominal pain women, abdominal pain men, vaginal bleeding, weakness, fever, dyspnea, syncope, headache, dizziness, GI bleed, back pain, seizure, CVA, palpatations, mental health, musculoskeletal)? @ -Differential Abdominal Pain Men: Appendicitis, cholecystitis, diverticulosis, ischemic bowel, pancreatitis, hepatitis, UTI, gastroenteritis, AAA, incarcerated hernia, bowel obstruction, constipation, inflammatory bowel, hepatitis, peptic ulcer disease, splenic infarction, perforated viscus, testicular torsion, this is not meant to be an all-inclusive list EKG interpreted by me (3pts min.). @ -[As above] X-rays interpreted by me (1pt min.). @ -[None done] CT interpreted by me (1pt min.). @ -[None done] U/S interpreted by me (1pt. min.). @ -Ultrasound right upper quadrant pending What testing was considered but not performed or refused? (CT, X-rays, U/S, labs)? Why? @ -[None] What meds were considered but not given or refused? Why? @ -[None] Did you discuss the management of the patient with other professionals (professionals i.e. , PA, [employer], lab, RT, psych nurse, licensed social worker, lab engineer, teacher, eeo officer, director of casework)? Give summary @ -[No] Was smoking cessation discussed for >3mins.? @ -[No] Was critical care preformed (if so, how long)? @ -[No] Were there social determinants of health that impacted care today? How? (Homelessness, low income, unemployed, alcoholism, drug addiction, transpo rtation, low edu. Level, literacy, decrease access to med. care, intermediate, rehab)? @ -[No] Was there de-escalation of care discussed even if they declined (Discuss DNR or withdrawal of care, Hospice)? DNR status @ -[No] What co-morbidities impacted this encounter? (DM, HTN, Smoking, COPD, CAD, Cancer, CVA, ARF, Chemo, Hep., AIDS, mental health diagnosis, sleep apnea, morbid obesity)? @ -[None] Was patient admitted / discharged? Hospital course, mention meds given and route, prescriptions, significant lab abnormalities, going to OR and other pertinent info. @ -This is a 58-year-old male presenting for right upper quadrant abdominal pain x 3 days. Patient has history of alcoholic liver cirrhosis. Vital signs are within normal limits. Patient is tender in right upper quadrant. Provided with IV Toradol for pain. Laboratory studies including CBC, CMP, lactic acid, lipase, troponin remarkable for lactic acid of 2.4. EKG reveals normal sinus rhythm with no ST changes. Case signed out to Renetta Cuevas PA-C pending right upper quadrant ultrasound. (Marla Contreras) Patient signed out to me by Marla Contreras PA-C pending ultrasound results. Ultrasound shows no acute findings in the right upper quadrant. On reassessment the patient is resting comfortably. He is educated on today's findings. He is given 1 L IV fluid bolus due to his elevated lactic. Provided with GI and general surgery follow-up regarding right upper quadrant pain. Discharged. Follow-up with PCP. Report back to ER with any new or worsening symptoms. Discussed return parameters and answered all questions. Patient conveyed verbal understanding and agreed to the plan. I discussed this case in detail with my attending Dr. Rodriguez Diagnosis/symptom? @Abdominal pain Acute, or Chronic, or Acute on Chronic? @Acute Uncomplicated (without systemic symptoms) or Complicated (systemic symptoms)? @Uncomplicated Side effects of treatment? @None Exacerbation, Progression, or Severe Exacerbation] @No Poses a threat to life or bodily function? @ [Unlikely (Renetta Cuevas) - Lab Data Lab Results 06/02/24 06/02/24 06/02/24 Range/Units 21:47 21:47 21:47 WBC 6.6 (3.8-10.6) k/uL RBC 4.13 L (4.30-5.90) m/uL Hgb 14.2 (13.0-17.5) gm/dL Hct 42.7 (39.0-53.0) % MCV 103.5 H (80.0-100.0) fL MCH 34.3 (25.0-35.0) pg MCHC 33.2 (31.0-37.0) g/dL RDW 13.3 (11.5-15.5) % Plt Count 255 (150-450) k/uL MPV 7.6 Neutrophils % 33 % Lymphocytes % 54 % Monocytes % 5 % Eosinophils % 4 % Basophils % 1 % Neutrophils # 2.2 (1.3-7.7) k/uL Lymphocytes # 3.6 (1.0-4.8) k/uL Monocytes # 0.3 (0-1.0) k/uL Eosinophils # 0.3 (0-0.7) k/uL Basophils # 0.1 (0-0.2) k/uL Macrocytosis Slight Sodium 136 L (137-145) mmol/L Potassium 3.9 (3.5-5.1) mmol/L Chloride 103 (98-107) mmol/L Carbon Dioxide 15 L (22-30) mmol/L Anion Gap 18 mmol/L BUN 11 (9-20) mg/dL Creatinine 0.85 (0.66-1.25) mg/dL Est GFR (CKD-EPI)AfAm >90 (>60 ml/min/1.73 sqM) Est GFR (CKD-EPI)NonAf >90 (>60 ml/min/1.73 sqM) Glucose 74 (74-99) mg/dL Lactic Ac Sepsis Rflx Plasma Lactic Acid Newton 2.4 H* (0.7-2.0) mmol/L Calcium 9.3 (8.4-10.2) mg/dL Total Bilirubin 0.9 (0.2-1.3) mg/dL AST 36 (17-59) U/L ALT 14 (4-49) U/L Alkaline Phosphatase 119 (38-126) U/L Troponin I (0.000-0.034) ng/mL Total Protein 7.5 (6.3-8.2) g/dL Albumin 4.5 (3.5-5.0) g/dL Lipase 42 (23-300) U/L 06/02/24 06/02/24 06/03/24 Range/Units 21:47 22:44 01:46 WBC (3.8-10.6) k/uL RBC (4.30-5.90) m/uL Hgb (13.0-17.5) gm/dL Hct (39.0-53.0) % MCV (80.0-100.0) fL MCH (25.0-35.0) pg MCHC (31.0-37.0) g/dL RDW (11.5-15.5) % Plt Count (150-450) k/uL MPV Neutrophils % % Lymphocytes % % Monocytes % % Eosinophils % % Basophils % % Neutrophils # (1.3-7.7) k/uL Lymphocytes # (1.0-4.8) k/uL Monocytes # (0-1.0) k/uL Eosinophils # (0-0.7) k/uL Basophils # (0-0.2) k/uL Macrocytosis Sodium (137-145) mmol/L Potassium (3.5-5.1) mmol/L Chloride (98-107) mmol/L Carbon Dioxide (22-30) mmol/L Anion Gap mmol/L BUN (9-20) mg/dL Creatinine (0.66-1.25) mg/dL Est GFR (CKD-EPI)AfAm (>60 ml/min/1.73 sqM) Est GFR (CKD-EPI)NonAf (>60 ml/min/1.73 sqM) Glucose (74-99) mg/dL Lactic Ac Sepsis Rflx Y Plasma Lactic Acid Newton 2.2 H* (0.7-2.0) mmol/L Calcium (8.4-10.2) mg/dL Total Bilirubin (0.2-1.3) mg/dL AST (17-59) U/L ALT (4-49) U/L Alkaline Phosphatase (38-126) U/L Troponin I <0.012 (0.000-0.034) ng/mL Total Protein (6.3-8.2) g/dL Albumin (3.5-5.0) g/dL Lipase (23-300) U/L 06/03/24 Range/Units 02:21 WBC (3.8-10.6) k/uL RBC (4.30-5.90) m/uL Hgb (13.0-17.5) gm/dL Hct (39.0-53.0) % MCV (80.0-100.0) fL MCH (25.0-35.0) pg MCHC (31.0-37.0) g/dL RDW (11.5-15.5) % Plt Count (150-450) k/uL MPV Neutrophils % % Lymphocytes % % Monocytes % % Eosinophils % % Basophils % % Neutrophils # (1.3-7.7) k/uL Lymphocytes # (1.0-4.8) k/uL Monocytes # (0-1.0) k/uL Eosinophils # (0-0.7) k/uL Basophils # (0-0.2) k/uL Macrocytosis Sodium (137-145) mmol/L Potassium (3.5-5.1) mmol/L Chloride (98-107) mmol/L Carbon Dioxide (22-30) mmol/L Anion Gap mmol/L BUN (9-20) mg/dL Creatinine (0.66-1.25) mg/dL Est GFR (CKD-EPI)AfAm (>60 ml/min/1.73 sqM) Est GFR (CKD-EPI)NonAf (>60 ml/min/1.73 sqM) Glucose (74-99) mg/dL Lactic Ac Sepsis Rflx Y Plasma Lactic Acid Newton (0.7-2.0) mmol/L Calcium (8.4-10.2) mg/dL Total Bilirubin (0.2-1.3) mg/dL AST (17-59) U/L ALT (4-49) U/L Alkaline Phosphatase (38-126) U/L Troponin I (0.000-0.034) ng/mL Total Protein (6.3-8.2) g/dL Albumin (3.5-5.0) g/dL Lipase (23-300) U/L - EKG Data EKG Comments: EKG reveals normal sinus rhythm with no ST changes. Ventricular rate 67 bpm, CO interval 164, QRS duration 110, QT/QTc 426/441 (Marla Contreras) Disposition <Marla Contreras - Last Filed: 06/03/24 00:21> Is patient prescribed a controlled substance at d/c from ED?: No Time of Disposition: 02:07 <Renetta Cuevas - Last Filed: 06/03/24 19:57> Clinical Impression: Abdominal pain Disposition: HOME SELF-CARE Condition: Good Instructions (If sedation given, give patient instructions): Biliary Colic (ED), Abdominal Pain (ED) Additional Instructions: Follow-up with GI or general surgery. Report back to ER with any new or worsening symptoms. Referrals: Sarai Hilliard MD [STAFF PHYSICIAN] - 1-2 days Haris Hodges MD [STAFF PHYSICIAN] - 1-2 days
[2024-06-02] MEDS: KETOROLAC 15 MG/ML 1 ML VIAL IVP STA (21:56)
[2024-06-02 22:17] LABS: Basophils # (A) 0.1 k/uL (0-0.2); Basophils % (A) 1 %; Eosinophils # (A) 0.3 k/uL (0-0.7); Eosinophils % (A) 4 %; HCT 42.7 % (39.0-53.0); HGB 14.2 gm/dL (13.0-17.5); Lymphocytes # (A) 3.6 k/uL (1.0-4.8); Lymphocytes % (A) 54 %; MCH 34.3 pg (25.0-35.0); MCHC 33.2 g/dL (31.0-37.0); MCV 103.5 fL (80.0-100.0); Macrocytosis Slight; Mean Platelet Volume 7.6; Monocytes # (A) 0.3 k/uL (0-1.0); Monocytes % (A) 5 %; Neutrophils # (A) 2.2 k/uL (1.3-7.7); Neutrophils % (A) 33 %; Platelet Count 255 k/uL (150-450); RBC 4.13 m/uL (4.30-5.90); RDW 13.3 % (11.5-15.5); WBC 6.6 k/uL (3.8-10.6)
[2024-06-02 22:28] LABS: ALT 14 U/L (4-49); AST 36 U/L (17-59); African American GFR (CKD) >90 (>60 ml/min/1.73 sqM); Albumin 4.5 g/dL (3.5-5.0); Alkaline Phosphatase 119 U/L (38-126); Blood Urea Nitrogen 11 mg/dL (9-20); Calcium 9.3 mg/dL (8.4-10.2); Carbon Dioxide 15 mmol/L (22-30); Chloride 103 mmol/L (98-107); Glucose 74 mg/dL (74-99); Lipase 42 U/L (23-300); Non-African American GFR(CKD) >90 (>60 ml/min/1.73 sqM); Total Bilirubin 0.9 mg/dL (0.2-1.3); Total Protein 7.5 g/dL (6.3-8.2)
[2024-06-02 22:39] LABS: Potassium 3.9 mmol/L (3.5-5.1)
[2024-06-02 22:53] LABS: Anion Gap 18 mmol/L; Sodium 136 mmol/L (137-145)
--- NOTE | 2024-06-03 01:37 | US ---
EXAM: US Abdomen Limited, Right Upper Quadrant CLINICAL HISTORY: ITS.REASON US Reason: RUQ TECHNIQUE: Real-time ultrasound of the right upper quadrant with image documentation. COMPARISON: No relevant prior studies available. FINDINGS: Limitations: Bowel gas. Liver: Liver measures 13.9 cm. No intrahepatic bile duct dilation. Gallbladder: No cholelithiasis or gallbladder wall thickening. Negative Dhillon sign. Common bile duct: Unremarkable as visualized. No biliary dilatation. Pancreas: Unremarkable as visualized. Right kidney: Unremarkable. Right kidney measures 9.2 cm. No hydronephrosis. IMPRESSION: No acute findings in the right upper quadrant.
[2024-06-03] MEDS: SODIUM CHLORIDE 0.9% 1,000 ML IV ONE (02:10)
[2024-06-03 02:55] VITALS: BP 111/70; PULSE 65; RESP 18; TEMP 97.8
== END 2024-06-03 02:54 | disposition home or self-care (01) ==
LOC: EC 20:32
CPT/HCPCS: 36415; 76705; 80053; 83605; 83690; 84484; 85025; 93005; 96361; 96374; 99285